=== PATIENT | female | born 1950 | race Caucasian/White ===

== ENCOUNTER → 2019-07-23 12:42 | Outpatient (CLI) | payer MEDICARE, OTHER, SELFPAY ==
--- NOTE | ~2019-07-23 | US_ITS ---
EXAMINATION: US carotid duplex BI DATE: 07/23/2019 13:29 INDICATION: Paresthesias TECHNIQUE: Grayscale, color Doppler, and pulsed Doppler images of the cervical carotid arteries were obtained. The degree of vessel stenosis is placed in one of the following categories: normal, <50%, 5 0-69%, >=70% but less than near-occlusion, near-occlusion, or total occlusion. Note that percent sten osis relative to normal distal artery lumen diameter is indirectly measured from velocity measurement s as described by Meño, et al. Radiology 2003; 229:340-346. Notes: Normal: Peak systolic velocity <125 centimeters/sec and no plaque <50%. Peak systolic velocity <125 ( EDV <40; ICA/CCA PSV ratio <2.0; used these factors only a tandem lesions or low cardiac output or co ntralateral disease) 50-69 %: PSV 125-230 (EDV 40-100; ratio 2-4) >= 70% but less than near occlusion: PSV greater than 230 (EDV > 100; ratio> 4.0) Near Occlusion: PSV that is variable; markedly narrowed lumen Occlusion: Absent flow on color/spectral Doppler and no lumen on travis scale. COMPARISON: None. FINDINGS: RIGHT: The right common carotid artery (CCA) peak systolic velocity (PSV) is 69 cm/s. The right internal car otid artery (ICA) PSV is 86 cm/s. The right ICA end-diastolic velocity (EDV) is 23 cm/s. The right IC A/CCA PSV ratio is 1.2. The external carotid artery (ECA) PSV is 86 cm/s. There is antegrade flow in the right vertebral artery. LEFT: The left CCA PSV is 76 cm/s. The left ICA PSV is 91 cm/s. The left ICA EDV is 20 cm/s. The left ICA/C CA PSV ratio is 1.2. The ECA PSV is 77 cm/s. There is antegrade flow in the left vertebral artery. IMPRESSION: 1. Less than 50% stenosis in the right internal carotid artery by sonographic criteria. 2. Less than 50% stenosis in the left internal carotid artery by sonographic criteria. Reviewed, dictated and finalized at location B. CLERK IMPRESSION: 1. Less than 50% stenosis in the right internal carotid artery by sonographic ramiro castellon. 2. Less than 50% stenosis in the left internal carotid artery by sonographic suhas marie.
== END ==
PROVIDERS: PCP Family Medicine; Visit Provider Family Medicine
DX: I65.23 Occlusion and stenosis of bilateral carotid arteries (principal)
CPT/HCPCS: 93880

== ENCOUNTER 2020-08-06 10:48 | Outpatient (CLI) | payer MEDICARE, SELFPAY ==
--- NOTE | 2020-08-06 11:01 | ECG_ITS ---
Measurements Intervals [place] Rate: 68 P: 72 LA: 195 QRS: 74 QRSD: 100 T: 53 QT: 386 QTc: 411 Interpretive Statements SINUS RHYTHM BORDERLINE ST ABNORMALITY- INFERIOR LEADS BORDERLINE ECG Electronically Signed On 08-06-2020 11:46:02 CATHOLIC PRIEST by Kelvin Haddad D.O.
== END 2020-08-06 10:49 | disposition home or self-care (01) ==
PROVIDERS: PCP Family Medicine; Visit Provider Family Medicine
DX: R55 Syncope and collapse (principal)
CPT/HCPCS: 93005

== ENCOUNTER 2022-07-05 08:11 | Outpatient (CLI) | payer MEDICARE, SELFPAY ==
--- NOTE | ~2022-07-05 | XR_ITS ---
EXAM: XR abdomen obstructive series DATE: 07/05/2022 14:29 HISTORY: K59.09 - Other constipation . COMPARISON: None available. FINDINGS: Clear lung bases. Normal bowel gas pattern. Distended urinary bladder. No organomegaly. No abnormal abdominal calcification. Degenerative change in the lumbar spine and right hip. Partially v isualized, uncomplicated appearing left hip arthroplasty. IMPRESSION: No radiographic evidence of obstruction or ileus. Reviewed, dictated and finalized at location K. Y HAND
[2022-07-05 19:05] LABS: Hematocrit 38.8 % (37.0-47.0); Hemoglobin 12.1 g/dL (12.0-15.0); Mean Corpuscular HGB Conc 31.2 g/dl (32-36); Mean Corpuscular Hemoglobin 30.8 pg (26-34); Mean Corpuscular Volume 98.7 fl (80-100); Mean Platelet Volume 10.5 fl (7.4-10.4); Platelet Count Result 231 k/mm3 (150-375); Red Blood Count 3.93 M/mm3 (4.2-5.4); Red Cell Distribution Width 12.8 % (11.5-14.5); White Blood Count 14.5 K/mm3 (4.5-10.0)
[2022-07-05 20:39] LABS: Add Urine Microscopic? NO; Appearance Urine Clear (Clear); Bilirubin Urine Negative (Negative); Blood Urine Negative (Negative); Color Urine Light Yellow (Yellow); Glucose Urine UA Negative (Negative); Ketones Urine Negative (Negative); Leukocyte Esterase Ur Negative LEU/UL (NEGATIVE); Nitrate Urine Negative (Negative); Protein Urine Negative (Negative); Urobilinogen Urine 0.2 mg/dL (<2.0)
[2022-07-05 20:48] LABS: Vitamin D 25 Hydroxy 34.8 ng/mL
[2022-07-05 21:10] LABS: Alanine Aminotransferase 29 U/L (6-35); Albumin Level 4.5 g/dL (3.5-5.1); Alkaline Phosphatase 99 U/L (38-126); Anion Gap 8 mmol/L (8-16); Aspartate Amino Transferase 44 U/L (14-36); Bilirubin,Total 0.5 mg/dL (0.2-1.3); Blood Urea Nitrogen 23 mg/dL (7-17); Calcium 9.2 mg/dL (8.4-10.2); Carbon Dioxide 29 mmol/L (22-30); Chloride 94 mmol/L (98-107); Cholesterol 225 mg/dL (0-200); Estimated Glomerular Filt Rate 55; Glucose 138 mg/dL (65-110); HDL Direct 49 mg/dL; Sodium 131 mmol/L (137-145); Triglycerides 121 mg/dL (<150)
[2022-07-05 21:11] LABS: Mucus Urine Rare /lpf; RBC Urine 0-2 /hpf (0-2); Squamous Epithelial Cell Urine Occasional /hpf (Few); WBC Urine 0-3 /hpf (0-3)
[2022-07-05 21:18] LABS: LDL Cholesterol Direct 131 mg/dL
[2022-07-05 21:19] LABS: Potassium 4.2 mmol/L (3.4-5.0)
== END 2022-07-05 08:12 | disposition home or self-care (01) ==
PROVIDERS: PCP Family Medicine; Visit Provider Family Medicine
DX: N30.90 Cystitis, unspecified without hematuria (principal); K59.09 Other constipation; N32.81 Overactive bladder; R55 Syncope and collapse; I10 Essential (primary) hypertension; E55.9 Vitamin D deficiency, unspecified
CPT/HCPCS: 36415; 74019; 80053; 80061; 81003; 82306; 84443; 85027; 87086; 87088

== ENCOUNTER 2022-09-05 14:32 | Outpatient (CLI) | payer MEDICARE, SELFPAY ==
[2022-09-05 19:28] LABS: Basophils Absolute Auto 0.1 K/mm3 (0.0-0.1); Basophils Percent Auto 0.9 % (0.2-1.2); Eosinophils Absolute Auto 0.2 K/mm3 (0-0.3); Eosinophils Percent Auto 2.3 % (0-4.4); Hematocrit 41.8 % (37.0-47.0); Hemoglobin 13.3 g/dL (12.0-15.0); Immature Granulocyte Absolute 0.03 K/mm3 (0.00-0.031); Immature Granulocyte Percent A 0.3 % (0-0.5); Lymphocytes Absolute Auto 2.17 K/mm3 (0.9-3.2); Lymphocytes Percent Auto 23.2 % (18.3-44.2); Mean Corpuscular HGB Conc 31.8 g/dl (32-36); Mean Corpuscular Hemoglobin 30.7 pg (26-34); Mean Corpuscular Volume 96.5 fl (80-100); Mean Platelet Volume 10.8 fl (7.4-10.4); Monocytes Absolute Auto 0.7 K/mm3 (0.1-0.6); Monocytes Percent Auto 7.5 % (2.6-8.5); Neutrophils Absolute Auto 6.2 K/mm3 (1.3-6.7); Neutrophils Percent Auto 65.8 % (45.5-73.1); Platelet Count Result 250 k/mm3 (150-375); Red Blood Count 4.33 M/mm3 (4.2-5.4); Red Cell Distribution Width 12.4 % (11.5-14.5); White Blood Count 9.4 K/mm3 (4.5-10.0)
[2022-09-05 19:35] LABS: Alanine Aminotransferase 24 U/L (6-35); Albumin Level 4.5 g/dL (3.5-5.1); Alkaline Phosphatase 151 U/L (38-126); Anion Gap 6 mmol/L (8-16); Aspartate Amino Transferase 33 U/L (14-36); Bilirubin,Total 0.4 mg/dL (0.2-1.3); Blood Urea Nitrogen 25 mg/dL (7-17); Calcium 9.9 mg/dL (8.4-10.2); Carbon Dioxide 32 mmol/L (22-30); Chloride 97 mmol/L (98-107); Estimated Glomerular Filt Rate 49; Glucose 100 mg/dL (65-110); Potassium 4.5 mmol/L (3.4-5.0); Sodium 135 mmol/L (137-145)
[2022-09-05 19:36] LABS: Hemoglobin A1C 5.3 % (<5.7)
[2022-09-05 20:17] LABS: Hepatitis B Surface Antigen Negative (Negative)
[2022-09-05 20:22] LABS: HAV RESULT Negative (Negative); Hepatitis B Core IgM Result Negative (Negative)
[2022-09-05 20:34] LABS: Hepatitis C Virus Antibody Negative (Negative)
== END 2022-09-05 14:33 | disposition home or self-care (01) ==
PROVIDERS: PCP Family Medicine; Visit Provider Family Medicine
DX: D72.829 Elevated white blood cell count, unspecified (principal); R73.09 Other abnormal glucose; R74.01 Elevation of levels of liver transaminase levels; E87.1 Hypo-osmolality and hyponatremia; I10 Essential (primary) hypertension
CPT/HCPCS: 36415; 80053; 80074; 82248; 83036; 85025

== ENCOUNTER 2022-09-19 14:35 | Outpatient (CLI) | payer MEDICARE, SELFPAY ==
--- NOTE | ~2022-09-19 | XR_ITS ---
EXAM: XR hip LT 2V w AP pelvis DATE: 09/19/2022 14:53 HISTORY: Low back pain, radiating into left hip, no injury . COMPARISON: None available. FINDINGS: Normal mineralization. No fracture or dislocation. No lytic or blastic lesion. Degenerativ e lumbar disc disease. Mild narrowing, moderate sclerosis, and mild osteophytosis in the right hip. U ncomplicated appearing left hip arthroplasty. No erosion or periosteal change. Soft tissues within no rmal limits. IMPRESSION: Left hip arthroplasty, no radiographic evidence of hardware-related complication. Reviewed, dictated and finalized at location K.
--- NOTE | ~2022-09-19 | XR_ITS ---
Lumbosacral Spine: AP and lateral views Clinical History: Pain COMPARISON: 03/19/2014 Findings: The normal lordotic curve is maintained. 4 mm anterolisthesis of L4 over L5 present. No acu te fracture seen. The intervertebral disc spaces are preserved. Probable facet joint degenerative rach nges from L3 through S1. The sacroiliac joints are normally outlined. Impression: 4 mm anterolisthesis of L4 over L5. Probable facet joint degenerative change at the lower lumbar spine. Reviewed, dictated and finalized at location M. Impression: 4 mm anterolisthesis of L4 over L5. Probable facet joint degenerative change at the lower lumbar spine.
== END 2022-09-19 14:36 | disposition home or self-care (01) ==
PROVIDERS: PCP Family Medicine; Visit Provider Family Medicine
DX: M25.559 Pain in unspecified hip (principal); M54.50 Low back pain, unspecified; M43.16 Spondylolisthesis, lumbar region; Z96.642 Presence of left artificial hip joint
CPT/HCPCS: 72100; 73502

== ENCOUNTER → 2022-12-06 12:20 | Outpatient (CLI) | payer MEDICARE, SELFPAY ==
--- NOTE | ~2022-12-06 | MM_ITS ---
EXAMINATION: MM screening bebo BI w grace HISTORY: Screening mammogram TECHNIQUE: Craniocaudal and mediolateral oblique 3-D tomosynthesis images were obtained and synthetic 2-D images were generated. CAD analysis was submitted and interpreted. COMPARISON: 12/17/2018, 06/23/2015 bilateral screening mammogram examinations BREAST PARENCHYMAL COMPOSITION: There are scattered areas of fibroglandular density. FINDINGS: There are scattered bilateral 5 mm smaller opacities. Bilateral diagnostic mammography and breast ultrasound examination are recommended. IMPRESSION: 1. Bilateral 5 mm or smaller masses 2. Bilateral diagnostic mammography and breast ultrasound examination are recommended BI-RADS Category 0: Incomplete: Needs additional imaging evaluation. Reviewed, dictated and finalized at location A. IMPRESSION: 1. Bilateral 5 mm or smaller masses 2. Bilateral diagnostic mammography and breast ultrasound examination are recom mended BI-RADS Category 0: Incomplete: Needs additional imaging evaluation.
== END ==
PROVIDERS: PCP Family Medicine; Visit Provider Family Medicine
DX: Z12.31 Encounter for screening mammogram for malignant neoplasm of breast (principal); R92.8 Other abnormal and inconclusive findings on diagnostic imaging of breast
CPT/HCPCS: 77063; 77067

== ENCOUNTER → 2022-12-29 08:43 | Outpatient (CLI) | payer MEDICARE, SELFPAY ==
--- NOTE | ~2022-12-29 | MMUS_ITS ---
EXAMINATION: MM diagnostic bebo BI w grace, US breast BI complete HISTORY: Bilateral 5 mm or smaller mammographic densities on 12/06/2022 screening mammogram TECHNIQUE: Additional 3-D tomosynthesis images of both breasts were performed and synthetic 2-D image s were generated. CAD analysis was submitted and interpreted. High resolution bilateral complete marialu[address] st ultrasound examination including all 4 quadrants and subareolar areas was performed. COMPARISON: 12/06/2022 bilateral screening mammogram FINDINGS: MAMMOGRAPHIC FINDINGS: Occasional small bilateral mammographic nodular densities are noted in including circumscribed 4.7 mm opacity in the right lateral subareolar area, approximately 2.7 x 5 mm circumscribed opacity near th e left inferior subareolar area. No irregular mass or architectural distortion, malignant calcification, skin thickening or retraction is noted. ULTRASOUND: Right breast: Subareolar area: 3 x 5 mm simple cyst 5:00 1 cm from nipple: Parallel circumscribed hypoechoic 3.7 mm lesion without posterior shadowing 5:00 1 cm from nipple: 2.8 mm circumscribed round lesion without internal vascularity or posterior fe atures 9:00 6 cm from nipple: 1.5 x 3 x 4 mm parallel circumscribed hypoechoic lesion 10:00 2 cm from nipple: 2.7 x 5.3 x 3.4 mm circumscribed sonolucency, likely a small cyst Left breast: 1.8 mm subareolar circumscribed sonolucency, probably a small cyst IMPRESSION: 1. Benign findings 2. Routine annual mammographic screening is recommended BI-RADS Category 2: Benign finding(s). Reviewed, dictated and finalized at location A. IMPRESSION: 1. Benign findings 2. Routine annual mammographic screening is recommended BI-RADS Category 2: Benign finding(s).
== END ==
PROVIDERS: PCP Student in an Organized Health Care Education/Training Program; Visit Provider Family Medicine
DX: N60.01 Solitary cyst of right breast (principal); R92.8 Other abnormal and inconclusive findings on diagnostic imaging of breast
CPT/HCPCS: 76641; 77062; 77066; G0279

== ENCOUNTER 2023-01-23 07:30 | Outpatient (CLI) | payer MEDICARE, SELFPAY ==
[2023-01-23 19:50] LABS: Cholesterol 249 mg/dL (0-200); HDL Direct 46 mg/dL; Triglycerides 131 mg/dL (<150)
[2023-01-23 20:01] LABS: LDL Cholesterol Direct 154 mg/dL
== END 2023-01-23 07:31 | disposition home or self-care (01) ==
PROVIDERS: PCP Family Medicine; Visit Provider Internal Medicine Cardiovascular Disease
DX: E78.2 Mixed hyperlipidemia (principal)
CPT/HCPCS: 36415; 80061

== ENCOUNTER 2023-02-18 12:43 | Emergency (ER) | payer MEDICARE, SELFPAY ==
[2023-02-18 12:56] VITALS: BP 153/74; PULSE 74; RESP 16; TEMP 36.3; O2SAT 99
--- NOTE | 2023-02-18 13:11 | ED.GENADULT ---
HPI - General Adult General Chief complaint: Skin/Abscess/Foreign Body Stated complaint: rash Source: patient Mode of arrival: ambulatory Limitations: no limitations History of Present Illness HPI narrative: Patient presents for evaluation of pruritic rash to bilateral upper extremities. 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 She had some itching shortly thereafter but did not have visible lesions. She developed some black dots to her arms. She now reports erythematous vesicles to the bilateral forearms and right upper arm. She indicates that the amount of pruritus is extremely bothersome. She played some cortisone cream yesterday and took a hot bath today and she feels like her symptoms are now worse. No hx of exposure to poison jamison in the past. No difficulty breathing or swallowing. She is not diabetic. Related Data Allergies Allergy/AdvReac Type Severity Reaction Status Date / Time Sulfa (Sulfonamide Allergy Intermediate RASH Verified 01/30/23 13:10 Antibiotics) tetanus and diphtheria Allergy Unknown PP41L [place] Verified 01/30/23 13:10 toxoids Year STEROIDS AdvReac Severe FLUSHED Uncoded 01/30/23 13:10 Review of Systems Review of Systems: CONSTITUTIONAL: Denies fever, chills, or sweats. EYES: Denies visual changes, redness, or discharge. ENT: Denies rhinorrhea, congestion, sore throat, or otalgia. CARDIOVASCULAR: Denies chest pain, palpitations, or edema. RESPIRATORY: Denies cough or dyspnea. GASTROINTESTINAL: Denies abdominal pain, nausea, vomiting, or diarrhea. GENITOURINARY: Denies dysuria or hematuria. SKIN: Reports pruritic rash to BUE MUSCULOSKELETAL: Denies back pain, joint pain, or myalgia. NEUROLOGIC: Denies headache, numbness, dizziness, or weakness. PSYCHIATRIC: Denies anxiety or depression. [facility] Past Medical History Medical History Anxiety Asthma Fibromyalgia Gastroesophageal reflux Hyperlipidemia Hypertension Mammogram normal (~2019) Overactive bladder Stress Vaginal dryness, menopausal Surgical History Surgical History H/O foot surgery History of cataract extraction History of hip replacement, total Family History Family History Mother Bladder cancer Hypertension Mother Hypertension Family history of malignant neoplasm of urinary bladder Grandparent Carcinoma of colon Family history of type 2 diabetes mellitus Father Family history of throat cancer Patient's father is Social History Social History Smoking status: Never smoker Second hand tobacco smoke exposure: No Alcohol intake: never Substance use: never Substance use type: does not use Lack of Transportation: No Lack of Food: Never True Current Housing: I Have Housing Concerned About Future Housing: No Difficulty Paying Gas/Electric Bills: No Difficulty Paying for Meds: No Currently Unemployed: No Education: High School Diploma/GED Difficulty w/ Childcare or Family Care: No Living arrangements: with family Occupation/Education: retired Gender identity (if verbalized by the patient): Female Exam Narrative: GENERAL: Well-appearing, well-nourished, and in no acute distress. HEAD: Normocephalic, atraumatic. EYES: PERRLA and EOMI. ENT: Nares clear, no rhinorrhea or epistaxis. Mucous membranes moist. Oropharynx without tonsillar hypertrophy exudate or other lesions. Bilateral TMs pearly travis nonbulging NECK: Supple. No adenopathy or masses. No carotid bruits or JVD CHEST: Clear to auscultation. No respiratory distress. No wheezes rales or rhonchi HEART: Regular rate and rhythm. No murmur heard. Normal peripheral pulses. ABDOMEN: Soft, nontender, nondistended,
== END 2023-02-18 13:14 | disposition home or self-care (01) ==
PROVIDERS: Emergency Provider Nurse Practitioner; PCP Family Medicine
DX: L23.7 Allergic contact dermatitis due to plants, except food (principal); J45.909 Unspecified asthma, uncomplicated; M79.7 Fibromyalgia; K21.9 Gastro-esophageal reflux disease without esophagitis; E78.5 Hyperlipidemia, unspecified; I10 Essential (primary) hypertension
CPT/HCPCS: 99213; G0463

== ENCOUNTER 2023-03-29 10:39 | Emergency (ER) | payer MEDICARE, SELFPAY ==
[2023-03-29 10:46] VITALS: BP 157/75; PULSE 83; RESP 20; TEMP 36.6; O2SAT 100
--- NOTE | 2023-03-29 11:11 | ED.FEMALEGU ---
HPI - Female Genitourinary General Chief complaint: Urogenital-Female Stated complaint: Urinary Problem Time Seen by Provider: 03/29/23 11:04 Source: patient and RN notes reviewed Mode of arrival: ambulatory Limitations: no limitations History of Present Illness HPI Narrative: 72-year-old female presents with concern for pelvic pain, pressure, urine frequency, urgency, foul-smelling urine. Reports she has had symptoms for about a month. She reports symptoms have gotten worse over the last couple days particularly with the odor. She reports some low back pain, denies nausea or vomiting. Denies fever, chills, sweats. Reports chronic body aches MD elicited complaint: UTI Related Data Home Medications Medication Instructions Recorded Confirmed topiramate 25 mg tablet 25 mg PO DAILY 03/29/23 03/29/23 Allergies Allergy/AdvReac Type Severity Reaction Status Date / Time Sulfa (Sulfonamide Allergy Intermediate RASH Verified 03/29/23 10:54 Antibiotics) tetanus and diphtheria Allergy Unknown PP41L [place] Verified 03/29/23 10:54 toxoids Year Review of Systems Review of Systems: CONSTITUTIONAL: Denies malaise, chills, sweats, or fever. CARDIOVASCULAR: Denies chest pain, palpitations, or edema. RESPIRATORY: Denies cough or dyspnea. GASTROINTESTINAL: Denies abdominal pain, nausea, vomiting, diarrhea GENITOURINARY: Reports dysuria, frequency, urgency, suprapubic pressure. Denies flank pain or hematuria. SKIN: Denies rash or itching. MUSCULOSKELETAL: Reports bilateral low back pain, chronic myalgia. All systems reviewed & are unremarkable except as noted in HPI and below PMFSH Past Medical History Medical History Anxiety Asthma Fibromyalgia Gastroesophageal reflux Hyperlipidemia Hypertension Mammogram normal (~2019) Overactive bladder Stress Vaginal dryness, menopausal Surgical History Surgical History H/O foot surgery History of cataract extraction History of hip replacement, total Family History Family History Mother Bladder cancer Hypertension Mother Hypertension Family history of malignant neoplasm of urinary bladder Grandparent Carcinoma of colon Family history of type 2 diabetes mellitus Father Family history of throat cancer Patient's father is Social History Social History Smoking status: Never smoker Second hand tobacco smoke exposure: No Alcohol intake: never Substance use: never Substance use type: does not use Lack of Transportation: No Lack of Food: Never True Current Housing: I Have Housing Concerned About Future Housing: No Difficulty Paying Gas/Electric Bills: No Difficulty Paying for Meds: No Currently Unemployed: No Education: High School Diploma/GED Difficulty w/ Childcare or Family Care: No Living arrangements: with family Occupation/Education: retired Gender identity (if verbalized by the patient): Female Comments At time of signature, agree with nursing past medical, surgical, social and family history. There is no relevant family history pertinent to the presenting complaint Exam Narrative: GENERAL: Well-appearing, well-nourished, and in no acute distress. HEAD: Normocephalic. EYES: PERRLA, conjunctivae clear. NECK: Supple. No lymphadenopathy CHEST: Clear to auscultation. No respiratory distress. HEART: Regular rate and rhythm. ABDOMEN: Soft, nontender upon palpation, nondistended, normal active bowel sounds, no palpable or pulsatile masses, no guarding. No CVA tenderness SKIN: Warm, dry, no rash. NEURO: Alert and oriented x3. PSYCH: Normal mood and affect Course Course Emergency Course: Patient is aware of diagnosis, understands and agree
== END 2023-03-29 11:15 | disposition home or self-care (01) ==
PROVIDERS: Emergency Provider Nurse Practitioner; PCP Family Medicine
DX: N39.0 Urinary tract infection, site not specified (principal); J45.909 Unspecified asthma, uncomplicated; M79.7 Fibromyalgia; K21.9 Gastro-esophageal reflux disease without esophagitis; E78.5 Hyperlipidemia, unspecified; I10 Essential (primary) hypertension
CPT/HCPCS: 81003; 87086; 99213; G0463

== ENCOUNTER 2023-05-03 07:38 | Outpatient (CLI) | payer MEDICARE, SELFPAY ==
[2023-05-03 18:50] LABS: Hematocrit 44.1 % (37.0-47.0); Hemoglobin 13.5 g/dL (12.0-15.0); Mean Corpuscular HGB Conc 30.6 g/dl (32-36); Mean Corpuscular Hemoglobin 30.5 pg (26-34); Mean Corpuscular Volume 99.8 fl (80-100); Mean Platelet Volume 10.5 fl (7.4-10.4); Platelet Count Result 234 k/mm3 (150-375); Red Blood Count 4.42 M/mm3 (4.2-5.4); Red Cell Distribution Width 14.7 % (11.5-14.5); White Blood Count 7.8 K/mm3 (4.5-10.0)
[2023-05-03 20:34] LABS: Alanine Aminotransferase 31 U/L (6-35); Albumin Level 4.3 g/dL (3.5-5.1); Alkaline Phosphatase 73 U/L (38-126); Anion Gap 6 mmol/L (8-16); Aspartate Amino Transferase 49 U/L (14-36); Bilirubin,Total 0.6 mg/dL (0.2-1.3); Blood Urea Nitrogen 25 mg/dL (7-17); Calcium 9.7 mg/dL (8.4-10.2); Carbon Dioxide 30 mmol/L (22-30); Chloride 96 mmol/L (98-107); Estimated Glomerular Filt Rate 55; Glucose 94 mg/dL (65-110); Potassium 4.9 mmol/L (3.4-5.0); Sodium 132 mmol/L (137-145)
[2023-05-03 20:35] LABS: Vitamin D 25 Hydroxy 43.9 ng/mL
== END 2023-05-03 07:39 | disposition home or self-care (01) ==
PROVIDERS: PCP Family Medicine; Visit Provider Family Medicine
DX: E78.5 Hyperlipidemia, unspecified (principal); E55.9 Vitamin D deficiency, unspecified; I10 Essential (primary) hypertension; J45.909 Unspecified asthma, uncomplicated; K21.9 Gastro-esophageal reflux disease without esophagitis; N32.81 Overactive bladder; R32 Unspecified urinary incontinence
CPT/HCPCS: 36415; 80053; 82306; 85027

== ENCOUNTER 2023-06-07 09:52 | Outpatient (CLI) | payer MEDICARE, SELFPAY ==
--- NOTE | ~2023-06-07 | XR_ITS ---
EXAMINATION: XR chest 2V 06/07/2023 10:00 INDICATION: Dyspnea PROCEDURE: 2 view chest COMPARISON: No prior studies for comparison. FINDINGS: The lungs are clear. The cardiomediastinal silhouette is within normal limits. There are no pleural effusions. There is no pneumothorax suspected. IMPRESSION: 1: NO ACUTE CARDIOPULMONARY DISEASE. Reviewed, dictated and finalized at location B. K PATCHER
== END 2023-06-07 09:53 | disposition home or self-care (01) ==
LOC: ANHBWCIMG 09:53
PROVIDERS: PCP Nurse Practitioner Adult Health; Visit Provider Nurse Practitioner Adult Health
DX: R09.89 Other specified symptoms and signs involving the circulatory and respiratory systems (principal)
CPT/HCPCS: 71046

== ENCOUNTER 2023-06-19 09:06 | Outpatient (CLI) | payer MEDICARE, SELFPAY ==
[2023-06-19 20:13] LABS: Anion Gap 7 mmol/L (8-16); Blood Urea Nitrogen 26 mg/dL (7-17); Calcium 9.8 mg/dL (8.4-10.2); Carbon Dioxide 27 mmol/L (22-30); Chloride 101 mmol/L (98-107); Estimated Glomerular Filt Rate 55; Glucose 93 mg/dL (65-110); Potassium 4.8 mmol/L (3.4-5.0); Sodium 135 mmol/L (137-145)
== END 2023-06-19 09:07 | disposition home or self-care (01) ==
LOC: ANHBWCLAB 09:08
PROVIDERS: PCP Nurse Practitioner Adult Health; Visit Provider Family Medicine
DX: E87.1 Hypo-osmolality and hyponatremia (principal)
CPT/HCPCS: 36415; 80048

== ENCOUNTER 2023-10-12 00:44 | Day surgery (SDC) | payer MEDICARE, SELFPAY ==
[2023-10-11 15:48] VITALS: BMI 30.4
[2023-10-12 09:20] VITALS: BP 175/78; PULSE 70; RESP 15; TEMP 36.8; O2SAT 99; BMI 32.5
--- NOTE | 2023-10-12 09:21 | P.OP_ITS ---
Procedure Note - Detailed Date of Procedure 10/12/23 Pre-op Diagnosis Recurrent unexplained near-syncope and syncope Post-op Diagnosis Same Procedure Performed Loop recorder implantation Surgeon Gómez Kiran MD Anesthesia Local Indications Recurrent unexplained near-syncope and syncope Findings Brief History of Present Illness: Patient is a very pleasant 73-year-old female with a past medical history significant for hypertension, hyperlipidemia recurrent unexplained near- syncope and syncope referred for loop recorder implantation for further evaluation. Description of Procedure After verbal and written informed consent was obtained from the patient risks, benefits, and alternatives explained in detail the patient agreed to proceed with the plan of care as outlined above. Patient was evaluated at bedside in the [facility] procedure room. Patient was placed the appropriate supine position. Left anterior chest wall was prepped and draped in the usual sterile fashion. Operators in appropriate sterile garb. The left 4th intercostal space was identified and marked. Utilizing approximately 36 cc of 1% subcutaneous lidocaine the left anterior chest wall was then locally anesthetized. After local anesthesia was achieved, 2 fingerbreadths left of the sternum at the 4th intercostal space was again identified and a 1 cm incision was made with the included skin punch tool. Following this with the included introducer, a tract was made subcutaneously at a 45 degree angle from the sternum. The introducer was then inverted 180 degrees and with the included plunger the Medtronic REVEAL LINQ I loop recorder was advanced subcutaneously into position easily and without complication. The plunger was then removed followed by the introducer. Manual pressure was held for least 5-10 min with excellent hemostasis. The device was then interrogated and revealed excellent fidelity and measured at 0.20mV. The Medtronic REVEAL LINQ I SN [id number] was implanted without compli cation. The incision was then approximated and closed using Exofin skin adhesive. The incision was then covered with a sterile dressing. Complications: None Estimated Blood Loss 1 Drains No Packing No Pathology None sent Complications No immediate complications Condition Stable Disposition Same day
--- NOTE | 2023-10-12 09:21 | WPDHPUPDATE1 ---
History and Physical Update Update Date/Time: 10/12/23 09:21 History and Physical has been reviewed, including an updated exam of the patient. There are NO changes in the patient's condition. Risks, benefits, and alternatives have been discussed and questions answered. Patient agrees to proceed with procedure.
== END 2023-10-12 10:49 | disposition home or self-care (01) ==
PROVIDERS: PCP Internal Medicine; Visit Provider Internal Medicine Cardiovascular Disease
PROC: (CPT 33285; principal; 2023-10-12 10:00)
DX: R55 Syncope and collapse (principal)
CPT/HCPCS: 33285; C1764

== ENCOUNTER 2023-12-25 09:47 | Outpatient (CLI) | payer MEDICARE, SELFPAY | END 2023-12-25 09:48 | disposition home or self-care (01) | PROVIDERS: PCP Family Medicine; Visit Provider Family Medicine | DX: M79.7 Fibromyalgia (principal); D72.829 Elevated white blood cell count, unspecified; E78.5 Hyperlipidemia, unspecified; F41.9 Anxiety disorder, unspecified; I10 Essential (primary) hypertension; J45.909 Unspecified asthma, uncomplicated; M54.50 Low back pain, unspecified; R55 Syncope and collapse; R74.01 Elevation of levels of liver transaminase levels | CPT/HCPCS: 36415; 84439; 84443 ==

== ENCOUNTER 2024-04-22 09:08 | Outpatient (CLI) | payer MEDICARE, SELFPAY ==
[2024-04-22 19:03] LABS: Alanine Aminotransferase 25 U/L (6-35); Albumin Level 4.5 g/dL (3.5-5.1); Alkaline Phosphatase 86 U/L (38-126); Anion Gap 8 mmol/L (4-12); Aspartate Amino Transferase 46 U/L (14-36); Bilirubin,Total 0.5 mg/dL (0.2-1.3); Blood Urea Nitrogen 22 mg/dL (7-17); Calcium 10.3 mg/dL (8.4-10.2); Carbon Dioxide 31 mmol/L (22-30); Chloride 99 mmol/L (98-107); Cholesterol 208 mg/dL (0-200); Estimated Glomerular Filt Rate > 60; Glucose 108 mg/dL (65-110); HDL Direct 46 mg/dL; Potassium 5.1 mmol/L (3.4-5.0); Sodium 138 mmol/L (137-145); Triglycerides 198 mg/dL (<150)
[2024-04-22 19:14] LABS: Hemoglobin 14.4 g/dL (12.0-15.0); LDL Cholesterol Direct 118 mg/dL; Mean Corpuscular HGB Conc 30.6 g/dl (32-36); Mean Corpuscular Hemoglobin 30.1 pg (26-34); Mean Corpuscular Volume 98.3 fl (80-100); Mean Platelet Volume 10.7 fl (7.4-10.4); Platelet Count Result 259 k/mm3 (150-375); Red Blood Count 4.78 M/mm3 (4.2-5.4); Red Cell Distribution Width 13.3 % (11.5-14.5); White Blood Count 9.2 K/mm3 (4.5-10.0)
[2024-04-22 19:30] LABS: Vitamin D 25 Hydroxy 56.8 ng/mL
== END 2024-04-22 09:09 | disposition home or self-care (01) ==
PROVIDERS: PCP Family Medicine; Visit Provider Family Medicine
DX: M79.7 Fibromyalgia (principal); M54.50 Low back pain, unspecified; D72.829 Elevated white blood cell count, unspecified; R74.01 Elevation of levels of liver transaminase levels; R55 Syncope and collapse; I10 Essential (primary) hypertension; E78.5 Hyperlipidemia, unspecified; F41.9 Anxiety disorder, unspecified; J45.909 Unspecified asthma, uncomplicated; Z79.899 Other long term (current) drug therapy
CPT/HCPCS: 36415; 80053; 80061; 82306; 82607; 84443; 85027

== ENCOUNTER 2024-05-01 07:31 | Outpatient (CLI) | payer MEDICARE, SELFPAY ==
--- NOTE | ~2024-05-01 | US_ITS ---
EXAM: ABDOMEN ULTRASOUND HISTORY: R74.01 - Elevation of levels of liver transaminase levels COMPARISON: None FINDINGS: LIVER: The liver is increased in echogenicity and unremarkable in size measuring 18 cm in longitudina l dimension. GALLBLADDER: No stones within the gallbladder. No gallbladder wall thickening or pericholecystic fluid. BILE DUCTS: Common bile duct measures 3mm. PANCREAS: Limited evaluation of the pancreas secondary to overlying bowel gas RIGHT KIDNEY: 10.6 cm. In length. No hydronephrosis or bulky renal calculi. VASCULATURE : The abdominal aorta is poorly visualized secondary to overlying bowel gas. The IVC is patent. IMPRESSION: Fatty infiltration of a normal sized liver. No additional abnormalities. Reviewed, dictated and finalized at location A.
== END 2024-05-01 07:32 | disposition home or self-care (01) ==
LOC: MICIMG 07:32
PROVIDERS: PCP Family Medicine; Visit Provider Family Medicine
DX: R74.01 Elevation of levels of liver transaminase levels (principal)
CPT/HCPCS: 76705

== ENCOUNTER 2024-05-20 09:03 | Outpatient (CLI) | payer MEDICARE, SELFPAY ==
--- NOTE | ~2024-05-20 | MM_ITS ---
EXAMINATION: MM screening bebo BI w grace HISTORY: Screening mammogram TECHNIQUE: Craniocaudal and mediolateral oblique 3-D tomosynthesis images were obtained and synthetic 2-D images were generated. CAD analysis was submitted and interpreted. COMPARISON: 12/06/2022, 12/17/2018 BREAST PARENCHYMAL COMPOSITION:Not Dense. There are scattered areas of fibroglandular density. FINDINGS: No suspicious mass, calcification, or architectural distortion are identified in either alida ast to suggest malignancy. There has been no suspicious interval change. IMPRESSION: No mammographic evidence of malignancy. Recommend routine screening mammography in one year. BI-RADS Category 1: Negative Reviewed, dictated and finalized at location . ER MACHINE OPERATOR
== END 2024-05-20 09:04 | disposition home or self-care (01) ==
PROVIDERS: PCP Family Medicine; Visit Provider Family Medicine
DX: Z12.31 Encounter for screening mammogram for malignant neoplasm of breast (principal)
CPT/HCPCS: 77063; 77067

== ENCOUNTER 2024-07-25 10:56 | Outpatient (CLI) | payer MEDICARE, SELFPAY ==
--- NOTE | ~2024-07-25 | XR_ITS ---
XR abdomen obstructive series Ordering provider: Theo Li MD History: . R10.2 - Pelvic and perineal pain RT SIDE WORSE . Comparison: None. FINDINGS: BOWEL: Nonobstructive bowel gas pattern. ORGANOMEGALY: None. SIGNIFICANT PATHOLOGIC CALCIFICATIONS: None. OTHER: No free air is seen under the diaphragm. Right hip arthroplasty. Severe right hip osteoarthrit ic changes. IMPRESSION: NO ACUTE ABDOMINAL FINDINGS. Reviewed, dictated and finalized at location A. K PRESS OPERATOR
[2024-07-25 12:18] LABS: Add Urine Microscopic? NO; Appearance Urine Clear (Clear); Bilirubin Urine Negative (Negative); Blood Urine Negative (Negative); Color Urine Yellow (Yellow); Glucose Urine UA Negative (Negative); Ketones Urine Negative (Negative); Leukocyte Esterase Ur Negative LEU/UL (Negative); Nitrate Urine Negative (Negative); Protein Urine Negative (Negative); Specific Grav Ur 1.005 (1.001-1.035); Urobilinogen Urine 0.2 mg/dL (<2.0)
[2024-07-25 13:07] LABS: Alanine Aminotransferase 23 U/L (6-35); Albumin Level 4.5 g/dL (3.5-5.1); Anion Gap 8 mmol/L (4-12); Bilirubin,Total 0.8 mg/dL (0.2-1.3); Blood Urea Nitrogen 23 mg/dL (7-17); Calcium 9.7 mg/dL (8.4-10.2); Carbon Dioxide 29 mmol/L (22-30); Chloride 97 mmol/L (98-107); Estimated Glomerular Filt Rate > 60; Glucose 88 mg/dL (65-110); Sodium 134 mmol/L (137-145)
[2024-07-25 13:16] LABS: Alkaline Phosphatase 103 U/L (38-126); Aspartate Amino Transferase 28 U/L (14-36); Potassium 4.5 mmol/L (3.4-5.0)
[2024-07-25 13:26] LABS: Hepatitis B Surface Antigen Negative (Negative)
[2024-07-25 13:32] LABS: HAV RESULT Negative (Negative); Hepatitis B Core IgM Result Negative (Negative)
[2024-07-25 13:43] LABS: Hepatitis C Virus Antibody Negative (Negative)
[2024-07-27 11:14] LABS: Ionized Calcium 5.2 mg/dL (4.7-5.5)
== END 2024-07-25 10:57 | disposition home or self-care (01) ==
PROVIDERS: PCP Family Medicine; Visit Provider Family Medicine
DX: R74.01 Elevation of levels of liver transaminase levels (principal); E87.5 Hyperkalemia; E83.52 Hypercalcemia; R53.83 Other fatigue; R10.9 Unspecified abdominal pain; R10.2 Pelvic and perineal pain
CPT/HCPCS: 36415; 74019; 80053; 80074; 81003; 82330; 87086

== ENCOUNTER 2024-10-26 12:48 | Emergency (ER) | payer MEDICARE, SELFPAY ==
[2024-10-26] VITALS (9 sets, daily range): BP systolic 163–193; BP diastolic 65–89; PULSE 60–76; RESP 16–18; TEMP 36.4; O2SAT 99–100
--- OUTSIDE RECORDS SUMMARY | 2024-10-26 12:50 | XMS_ITS | Clinical Summary ---
Author Organization [facility] Address [address] [place] [id number] Care Team Providers Care Manager Mac Name Role Phone Ruth Gomez MD Primary Care Provider [phone] Social History Tobacco Use Types Packs/Day Years Used Date Smoking Tobacco: Never Assessed Comments Unknown Sex and Gender Information Value Date Recorded Sex Assigned at Not on file Legal Sex Female 2:05 PM CDT Gender Identity Not on file Sexual Orientation Not on file Plan of Treatment Health Maintenance Due Date Last Done Comments Colorectal Cancer Screening Colonoscopy (10 Years) 1950 Hepatitis C 1969 DTaP, Tdap and Td Vaccines ( 1 - Tdap) 1970 Mammogram Screening 1991 Pneumococcal Vaccine: 50+ Ye ars (1 of 1 - PCV) 2001 Zoster Vaccines (1 of 2) 2001 Annual Medicare Wellness Visit 2016 Dexa Scan (General) 2016 COVID-19 Vaccine ( - 2023-2 5 season) 2024 RSV Immunization or 60+ Years (1 - 1-dose 75+ series) 2026 Meningococcal B Vaccine Aged Out No l onger eligible based on patient's age to complete this topic Meningococcal Vaccine Aged Out No jefe barrie eligible based on patient's age to complete this topic RSV Immunizations Under 20 Months Aged Out No longer eligible based on patient's age to complete this topic Insurance MEDICARE [employer] Care Teams Manager Mac Relationship Specialty Start Date End Date Ruth Gomez MD PCP - General FAMILY PRACTICE 03/17/20
--- OUTSIDE RECORDS SUMMARY | 2024-10-26 12:50 | XMS_ITS | Clinical Summary ---
Author Organization [facility] Address [address] [place] [address] Phone Care Team Providers Care Foundry Finisher Name Role Phone Theo Li MD Primary Care Provider [phone] Allergies Active Allergy Reactions Criticality Noted Date Comments Amoxicillin Itching 02/13/2024 Clavulanic Acid Itching 02/13/2024 Sulfa Antibiotics Rash 02/13/2024 Tetanus-Diphtheria Toxoids Td Unknown 2023 Medications dicyclomine (BENTYL) 10 MG Capsule 11/21/2023 Active losartan (COZAAR) 100 MG Tablet Take 100 mg by mouth daily. 06/20/2023 Active ezetimibe (ZETIA) 10 MG Tablet Take 10 mg by mouth daily. 04/23/2024 Active Linzess 72 MCG Capsule as needed 03/25/2024 Active cyanocobalamin 1000 MCG Tablet Take 1,000 mcg by mouth. Active Social History Tobacco Use Types Packs/Day Years Used Date Smoking Tobacco: Never Smokeless Tobacco: Never Tobacco Cessation:Counseling Given: Not Answered Alcohol Use Standard Drinks/Week Comments Not Currently 0 (1 standard drink = 0.6 oz pur e alcohol) Comments Unknown Sex and Gender Information Value Date Recorded Sex Assigned at Not on file Legal Sex Female 9:38 PM CDT Gender Identity Not on file Sexual Orientation Not on file Last Filed Vital Signs Vital Sign Reading Time Taken Comments Blood Pressure 146/86 06/24/2024 10:04 AM DIELECTRIC PRESS OPERATOR Pulse 71 06/24/2024 10:04 AM DIELECTRIC PRESS OPERATOR Temperature 36.5 C (97.7 F) 06/24/2024 10:04 AM DIELECTRIC PRESS OPERATOR Respiratory Rate 16 06/24/2024 10:04 AM DIELECTRIC PRESS OPERATOR Oxygen Saturation 100% 06/24/2024 10:04 AM DIELECTRIC PRESS OPERATOR Inhaled Oxygen Concentration - - Weight 97 kg (213 lb 12.8 oz) 06/24/2024 10:04 A M DIELECTRIC PRESS OPERATOR Height 177.8 cm (5' 10 ) 06/24/2024 10:04 AM DIELECTRIC PRESS OPERATOR Body Mass Index 30.68 06/24/2024 10:04 AM DIELECTRIC PRESS OPERATOR Plan of Treatment Upcoming Encounters Date Type Department Care Team (Late st Contact Info) Description 12/24/2024 1:00 PM CDT Office Visit [facility] - Neurology [facility] [address] [place] [address] Sacha Sloan MD [address] [place] [address] Health Maintenance Due Date Last Done Comments Hepatitis C Virus (HCV) Screening 1950 Mammogram 1950 TdaP Immunization 1950 Colonoscopy 1996 Colorectal Cancer Screening 1996 Cologuard 2001 Immunochemical Fecal Occult Blood 2001 Pneumococcal Immunization (5 0+ years) (1 of 1 - PCV) 2001 Zoster Immunization (1 of 2) 2001 Influenza Immunization (#1) 2024 SARS-COV-2 Immunization ( - 2023- season) 2024 DEXA Bone Density 03/17/2024 03/17/2022 Respiratory Syncytial Virus (RSV) Immunization (Adult) (1 - 1-dose 75+ series) 2026 Hepatitis B Immunization Aged Out No longer eligible based on patient's age to complete this topic Meningococcal Immunization (ACWY) Aged Out No longer eligible based on patient's age to complete this topic Rotavirus Immunization Aged Out No lo nger eligible based on patient's age to complete this topic Insurance MEDICARE C [facility] Care Teams Foundry Finisher Relationship Specialty Start Date End Date Theo Li MD [address] [place] [id number] PCP - General Family Medicine 02/12/24
--- OUTSIDE RECORDS SUMMARY | 2024-10-26 12:50 | XMS_ITS | CONTINUITY OF CARE DOCUMENT ---
Author Name neris cordon Address Unknown Organization [facility] Address [id number] [place] [address] [address] [place] [address] Phone [phone] Care Team Providers Care Activity Therapy Teacher Name Role Phone neris cordon Unavailable Unavailable
--- OUTSIDE RECORDS SUMMARY | 2024-10-26 12:51 | XMS_ITS | Clinical Summary ---
Author Organization [facility] Address [address] [place] [address] Care Team Providers Care Appliance Tester Name Role Phone Ruth Gomez MD Unavailable [phone] Morales Guerrero MD Unavailable [phone] Theo Li MD Primary Care Provider [phone] Allergies Active Allergy Reactions Criticality Noted Date Comments Conj Estrog-Medroxyprogest Erick Other (See comments) Low 03/23/2015 Mouth sores Diclofenac Swelling Medium 05/17/2022 Pfnfzuz-Rpq-Kpx Reductase Inhibitors Muscle pain Medium 06/21/2023 Sulfa (Sulfonamide Antibiotics) Rash Medium 12/29/2016 Sulfamethoxazole-Trimethopr im Itching Low 03/23/2015 Medications ibuprofen (ADVIL,MOTRIN) 200 mg tab/cap Take by mouth every 6 (six) hours as needed for pain Active vit no.124/iron/foli c ( VITAMIN ORAL) Take by mouth Ac tive acidophilus-pect in, citrus 100 million cell-10 mg capsule Take by mouth Activ e NON FORMULARY, FOR CLINIC ADMINISTERED MEDICATIONS ONLY, (not in database) Apply 1 each to the mouth or throat once Magic Mouthwash 30 mL Nystatin, 30 mL Lidocain 2 % rickey.,40 mL M-DRYL 12.5 mg/5ML, 40. mL GNP Antacid, 0.500 Dexamethasone 4 mg tab Active losartan (COZAAR) 100 mg tabletIndication s:hypertension Take 1 tablet (100 mg total) by mouth daily 90 tablet 1 06/20/20 23 Active triamcinolone (KENALOG) 0.1 % paste 08/24/19 24 Active lysine 500 mg tablet 1 tablet (500 mg total) Active ezetimibe (ZETIA) 10 mg tablet Take 1 tablet (10 mg total) by mouth daily 90 tablet 3 04/23/20 24 025 Active Linzess 72 mcg capsule as needed 03/25/20 24 Active cyanocobalamin (Vitamin B-12) 1,000 mcg tabletIndication s:Prevention of Vitamin B12 Deficiency Take 1 tablet (1,000 mcg total) by mouth daily Active Active Problems Problem Noted Date Diagnosed Date Visit for wound check 10/19/2023 Status post placement of implantable loop record er 10/12/2023 Overview (10/12/2023): Med[employer] [id number]. Dx; Syncope. DOI 10/12/2023-[facility] Slow transit constipation 06/21/2023 Assessment & Plan (06/21/2023 12:14 PM LIBRARY CUSTOMER SERVICE CLERK): Patient reports constipation probiotics help control this best patient did not tolerate Linzess Recurrent UTI (urinary tract infection) 06/21/20 Assessment & Plan (06/21/2023 12:25 PM LIBRARY CUSTOMER SERVICE CLERK): Patient advised me she is had a history recurrent UTI. 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 He is done multiple tests etiology not found. Patient is not symptomatic at this time H/O syncope 04/04/2023 Medication side effects 05/03/2022 Gastroesophageal reflux disease 04/27/2022 Assessment & Plan (06/21/2023 12:04 PM LIBRARY CUSTOMER SERVICE CLERK): Patient advised me on today's date 06/20/2023 that the famotidine effective in controlling her symptoms for GERD. Will continue present therapy Assessment & Plan (04/27/2022 12:24 PM CDT): - chronic, not at goal - she was on Famotidine 10 mg daily - prior to it she was on Omeprazole 20 mg daily - I want her to tried Famotidine 40 mg mighty and if not controlled go to Omeprazole 20 mg BID Encounter for Medicare annual wellness exam 04/09 Overview (04/27/2022): aware of need, she wants to manage other health care needs at this time Assessment & Plan (06/21/2023 12:28 PM LIBRARY CUSTOMER SERVICE CLERK): This is a new patient to me she is multiple health problems. History and physical completed patient's health risk assessment health maintenance reviewed in addressed. Patient is not interested in immunizations a detailed discussion regarding shingles vaccine and strongly encouraged it. Reviewed with her [email or web address] protocol in terms of home testing immediately and contact the office. Patient will not accept/interested in colonoscopy. Medical records stated by her previous primary care physician she had a colonoscopy 10 years ago that showed polyps. At this time will precede with DNA Cologuard test I personally advised patient that has a small chance she will get positive results from the DNA Cologuard than colonoscopy is a strongly suggested under the circumstances. Chronic right shoulder pain 04/27/2022 Assessment & Plan (04/27/2022 1:00 PM CDT): - chronic, worse - has an appointment she made with orthopedic provider in May - occurred after a fall in September 2021 - no imaging in file, offered Xray but wants to defer - see physical exam findings Class 1 obesity due to exces s calories without serious comorbidity with body mass index (BMI) of 31.0 to 31.9 in adult 03/16/2022 Assessment & Plan (03/16/2022 1:19 PM CDT): HPI: Condition is stable goal BMI <30 A&P: Healthy, high-protein, lower carbohydrate, lower fat lifestyle and exercise for 150min/week recommended Recommend tracking everything you put in your mouth on an nivia like OrderAhead Lower carb substitutions: Ald[employer] carries a zero net carb bread If you are looking for whole potatoes, like to use in soup or new potato shape/flavor, radishes are a great replacement If you are looking for mashed potatoes, riced cauliflower in the frozen bag section are a great replacement For pasta, try using zucchini noodles, lay them out on a cookie sheet and pat dry with a tea towel to try to remove as much moisture as possible. Heat your pasta sauce on the stove and put the noodles in for 30-45 seconds. If you leave them in much longer they will become mushy Viola and/or coconut flour instead of regular flour For pizza dough, try fathead pizza dough recipe online. To get a crispy crust, bake on one side for 8-12 min, then flip over and bake on the other side for 8-12 min, then put toppings on and bake until the cheese on top of pizza melts chaffles recipe online For ice cream, try the brand Enlightened To replace coffee creamer and make it low carb, use heavy creamer with sugar free Torani sweetener For chips, try Whisps or pork rinds For yogurt, try Two Good scottish yogurt Use Pinterjoi for recipe ideas. Type in low carb... Hand Measurements: A fist or cupped hand = 1 cup 1 cup = 1 -2 servings of fruit juice 1 oz. of cold cereal 2 oz. of cooked cereal, rice or pasta 8 oz. of milk or yogurt A thumb = 1 oz. of cheese Consuming low-fat cheese helps you meet the required servings from the milk, yogurt and cheese group. 1 oz. of low-fat cheese counts as 8 oz. of milk or yogurt. Handful = 1-2 oz. of snack food Thumb tip = 1 teaspoon Keep high-fat foods, such as peanut butter and mayonnaise, at a minimum. One teaspoon is equal to the end of your thumb, from the knuckle up. Three teaspoons equals 1 tablespoon. Palm = 3 oz. of meat Choose lean poultry, fish, shellfish and beef. One palm size portion equals 3 oz. for an adult and 1 -2 oz. for a child under 5. 1 tennis ball or a fist= 1/2 cup of fruit and vegetables Healthy diets include a variety of colorful fruits and vegetables every day. The secret to serving size is in your hand. Snacking can add up. Remember, 1 handful equals 1 oz. of nuts and small candies. For chips and pretzels, 2 handfuls equals 1 oz. Because hand sizes vary, compare your fist size to an actual measuring cup. Personal history of colonic polyps 01/25/2022 Assessment & Plan (06/21/2023 12:11 PM LIBRARY CUSTOMER SERVICE CLERK): Patient advised colon cancer screening , not interested in colonoscopy at this time she will accept DNA Cologuard testing. Patient's advised small percentage that the DNA Cologuard testing will returned abnormal. Last colonoscopy over 10 years ago self reported. Assessment & Plan (02/22/2022 1:12 PM CDT): - past due for colon cancer screening - reports history of colon polyps - last colonoscopy over 10 years ago, states she was told no need for repeat in future which I disagree - recommend repeat Colonoscopy, referral placed Assessment & Plan (01/25/2022 12:40 PM CDT): - past due for colon cancer screening - reports history of colon polyps - last colonoscopy over 10 years ago, states she was told no need for repeat in future which I disagree - recommend repeat Colonoscopy, referral placed Pneumococcal vaccination declined by patient Cervical spinal stenosis 01/03/2022 Assessment & Plan (01/25/2022 12:42 PM CDT): - chronic, improved control - has been evaluated by surgeons before - CT Cervical spine 09/2021 No acute fracture or traumatic malalignment. Multilevel degenerative disc disease, severe at C5-C6. Additional degenerative changes as above including moderate to severe spinal canal stenosis at C5-C6. - started on Gabapentin on last visit 100 mg TID with good improvement --> increase to 100 mg QID - continue management with changes made above Assessment & Plan (01/03/2022 10:15 AM CDT): - chronic, issue - has been evaluated by surgeons before - CT Cervical spine 09/2021 No acute fracture or traumatic malalignment. Multilevel degenerative disc disease, severe at C5-C6. Additional degenerative changes as above including moderate to severe spinal canal stenosis at C5-C6. Adhesive capsulitis of both shoulders 12/28/2021 Assessment & Plan (01/25/2022 12:42 PM CDT): - chronic, she had been scheduled for left shoulder surgery which she has cancelled - her right shoulder also having similar symptoms - started physical therapy for both shoulders Arthritis of left acromioclavicular joint 2021 Overview (12/28/2021): Added automatically from request for surgery [id number] Impingement syndrome of left shoulder 12/28/2021 Overview (12/28/2021): Added automatically from request for surgery [id number] Biceps tendonitis on left 12/28/2021 Overview (12/28/2021): Added automatically from request for surgery [id number] Mixed hyperlipidemia 12/07/2021 Assessment & Plan (06/21/2023 12:00 PM LIBRARY CUSTOMER SERVICE CLERK): Patient presently on Zetia she has a history of intolerance to statin is noted in patient's inspector firearms notes Dr. Kiran. 04/04/2023. I have no new recommendations patient continues to follow-up Cardiology. Component Latest Ref Rng 01/23/2023 SCRIBED Cholesterol, Total 100 - 199 249 (E) SCRIBED HDL >35 46 (E) SCRIBED LDL <130 154 (E) SCRIBED Triglycerides <150 131 (E) Legend: (E) External lab result PETERSON (dyspnea on exertion) 12/07/2021 Statin myopathy 11/06/2021 Assessment & Plan (11/06/2021 10:08 PM CDT): - chronic, unknown status - reports history of Statin myopathy - she is not on any medications - she has tried several statin medications and even Ezetimibe caused her issues - check lipid panel, order placed Hypertension, essential 10/26/2021 Assessment & Plan (06/21/2023 12:15 PM LIBRARY CUSTOMER SERVICE CLERK): Patient presently on losartan 100 mg daily she is tolerating this. Continue present therapy Assessment & Plan (05/12/2022 2:01 PM CDT): - chronic, not well controlled - reports having low blood pressures and feeling not herself - lightheaded - did not take her amlodipine 5 mg today so BP elevated - currently on Losartan-HCTZ 100-12.5 mg daily and Amlodipine 5 mg daily, --> switched to Amlodipine 2.5 mg from 5 mg - does not measure her BP at home regualarly - follow a low salt diet - monitor electrolytes - to keep home Bp log for next week checking twice daily, to notify me if high or low - continue with current medications with changes above Lab Results Component Value Date POTASSIUM 3.8 10/07/2021 Assessment & Plan (04/27/2022 12:24 PM CDT): - chronic, well controlled - currently on Losartan-HCTZ 100-12.5 mg daily and Amlodipine 5 mg daily, script sent in - does not measure her BP at home - follow a low salt diet - monitor electrolytes - continue with current medications with changes above Lab Results Component Value Date POTASSIUM 3.8 10/07/2021 Assessment & Plan (03/16/2022 1:18 PM CDT): HPI: Condition is stable A&P: Discussed/ordered labs, encouraged healthy, low carbohydrate lifestyle and at least 150min/week of exercise, due to being lightheaded, we will have pt take the losartan/hctz 100/25mg in the am, we will then have pt take the amlodipine 5mg at bedtime. This should help resolve the dizziness. Push Water intake at least 80 ounces a day Assessment & Plan (02/22/2022 12:02 PM CDT): - chronic, not well controlled - currently on Losartan-HCTZ 100-12.5 mg daily - start Amlodipine 5 mg daily, script sent in - does not measure her BP at home - follow a low salt diet - monitor electrolytes - continue with current medications with changes above Lab Results Component Value Date POTASSIUM 3.8 10/07/2021 Assessment & Plan (02/07/2022 1:20 PM CDT): Increase Losartan to 100 mg with her HCTZ 12.5 Home BP log and f/u with PCP in 2 weeks to re-evaluate. Assessment & Plan (01/03/2022 10:06 AM CDT): - chronic, suboptimal - currently on Losartan-HCTZ 50-12.5 mg daily - does not measure her BP at home - follow a low salt diet - monitor electrolytes - continue with current medications Lab Results Component Value Date POTASSIUM 3.8 10/07/2021 Assessment & Plan (10/26/2021 3:03 PM CDT): - chronic, suboptimal - currently on Losartan-HCTZ 50-12.5 mg daily - does not measure her BP at home - follow a low salt diet - monitor electrolytes Lab Results Component Value Date POTASSIUM 3.8 10/07/2021 Abdominal cramps 10/26/2021 Assessment & Plan (10/26/2021 3:06 PM CDT): - chronic, stable - no significant diarrhea, sttruggles with constipation - takes a supplement or milk of magnesia for cosntipation - use Dicyclomine 10 mg QID but mostly uses it once daily as needed - has not used it in few months - has coexisting fibromyalgia, anxiety history - continue with current therapy Anxiety 10/07/2021 Assessment & Plan (02/22/2022 1:14 PM CDT): - chronic, stable - on chele term Lorazepam 1.5mg nightly, once in a while she would take an extra 1/2 tablet - not on other medications for anxiety - no coexisting depression - continue current therapy No results found for: TSH Assessment & Plan (01/25/2022 12:49 PM CDT): - chronic, stable - has been on group home Lorazepam 1.5mg nightly, once in a while she would take an extra 1/2 tablet - not on other medications for anxiety - no coexisting depression - continue current therapy No results found for: TSH Assessment & Plan (10/26/2021 3:12 PM CDT): - chronic, stable - has been on terminal make up operator Lorazepam 1-1.5mg nightly - not on other medications for anxiety - no coexisting depression - may continue current therapy Fibromyalgia 10/07/2021 Assessment & Plan (06/21/2023 12:06 PM LIBRARY CUSTOMER SERVICE CLERK): Patient advised me that gabapentin 300 mg twice a day has helped with her fibromyalgia however this still room for improvement we discussed taking it 3 times a morning afternoon at night. Discussed side effects she is tolerating it she does notice a dry mouth. Assessment & Plan (04/27/2022 12:16 PM CDT): - chronic, improved but not at goal - she already tried Gabapentin, Cymbalta, Lyrica but made her feel unwell. - currently on Gabapentin 100 mg tablet TID with good improvement --> increased to 200 mg TID, new script sent in - currently uses ibuprofen and tylenol as needed as well - continue current therapy with changes made above Assessment & Plan (02/22/2022 12:04 PM CDT): - chronic, improved - she already tried Gabapentin, Cymbalta, Lyrica but made her feel unwell. - currently on Gabapentin 100 mg tablet TID with good improvement --> increased to 100 mg QID but made her too sleepy - currently uses ibuprofen and tylenol as needed as well - continue current therapy Assessment & Plan (01/25/2022 12:41 PM CDT): - chronic, improved - she already tried Gabapentin, Cymbalta, Lyrica but made her feel unwell. - started Gabapentin 100 mg tablet TID on last visit with good improvement --> increase to 100 mg QID - currently uses ibuprofen and tylenol as needed as well - continue current therapy with changes made above Assessment & Plan (01/03/2022 10:03 AM CDT): - chronic, stable - She does not want to take any medication for her Fibromyalgia - she already tried Gabapentin, Cymbalta, Lyrica but made her feel unwell. - she states she only tried Gabapentin again as she only tried it for about 3 days, she does not recall what happened - start Gabapentin 100 mg tablet - 200 mg Nightly and 100 mg mornings - currently uses ibuprofen and tylenol as needed - continue current therapy with changes made above Assessment & Plan (10/26/2021 2:59 PM CDT): - chronic, stable - She does not want to take any medication for her Fibromyalgia - she already tried Gabapentin, Cymbalta, Lyrica but made her feel unwell. - currently uses ibuprofen and tylenol as needed - continue current therapy Syncope and collapse 10/06/2021 Assessment & Plan (06/21/2023 12:03 PM LIBRARY CUSTOMER SERVICE CLERK): Pain records reveal she had a syncopal episode 09/26/2021. Evaluation cardiovascular etiology noted in inspector firearms notes Dr. Kiran April 04, 2023. This is my 1st visit with this patient she does not express any fear concern over having syncopal episodes in the future. Laryngopharyngeal reflux (LPR) 06/07/2021 Assessment & Plan (05/12/2022 1:59 PM CDT): - chronic, not at goal - seen by ENT and diagnosed with it - currently on Pepcid 10 mg daily only, then tried 20 mg BID without success - has used Omeprazole before - which used to work better --> switch back to Omeprazole, new script sent in - continue current therapy Recommend the following changes: - Avoid trigger foods (such as spicy foods, fried foods, onions, peppermints, chocolate, high acid foods and juices, caffeinated beverages, carbonated beverages, and tomato based products). - Avoid alcohol take. - Avoid routine use of NSAIDs. - Avoid lying down for 2-3 hours after eating. - Weight loss encouraged. - Eat smaller meals. - Avoid tobacco use. - Sleep on left side. - may sleep with bed propped. - Avoid wearing tight clothing that puts pressure on the stomach. Assessment & Plan (11/06/2021 10:07 PM CDT): - chronic, stable - seen by ENT and diagnosed with it - currently on Pepcid 10 mg daily only - has used Omeprazole before - stated caused discomfort in her mouth - continue current therapy Recommend the following changes: - Avoid trigger foods (such as spicy foods, fried foods, onions, peppermints, chocolate, high acid foods and juices, caffeinated beverages, carbonated beverages, and tomato based products). - Avoid alcohol take. - Avoid routine use of NSAIDs. - Avoid lying down for 2-3 hours after eating. - Weight loss encouraged. - Eat smaller meals. - Avoid tobacco use. - Sleep on left side. - may sleep with bed propped. - Avoid wearing tight clothing that puts pressure on the stomach. 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 She uses a non formulary prescription recommended by a retired ear nose and throat doctor Dr. Gracia that gives her some relief. Magic mouthwash NON FORMULARY, FOR CLINIC ADMINISTERED MEDICATIONS ONLY, (not in database) Provider, Historical, Dose, Frequency: 1 each, Once Summary: Apply 1 each to the mouth or throat once Magic Mouthwash 30 mL Nystatin, 30 mL Lidocain 2 % rickey.,40 mL M-DRYL 12.5 mg/5ML, 40. mL GNP Antacid, 0.500 Dexamethasone 4 mg tab, Historical Med Assessment & Plan (11/06/2021 10:05 PM CDT): - chronic, stable - currently on multivitamin with folic acid - has seen ENT before - on vitamin B12 supplementation daily as well Assessment & Plan (06/07/2021 1:22 PM LIBRARY CUSTOMER SERVICE CLERK): Start multi-vitamin Folic Acid 800 mg () Pepcid 40 mg at bedtime Finish Magic mouthwash 64 ounces of caffeine free and soda free fluid daily S/P hip replacement, left 02/28/2018 Arthralgia of hip 12/28/2016 Low back pain 12/28/2016 Resolved Problems Problem Noted Date Diagnosed Date Resolved Date Near syncope 05/03/2022 06/21/2023 Other chest pain 12/07/2021 02/22/2022 Dyslipidemia 10/26/2021 12/07/2021 Assessment & Plan (11/06/2021 10:08 PM CDT): - chronic, unknown status - reports history of Statin myopathy - she is not on any medications - she has tried several statin medications and even Ezetimibe caused her issues - check lipid panel, order placed Encounters Date Type Department Care Team Description 09/30/2024 7:15 AM CDT Ancillary Procedure [facility] [address] [place] [phone] Status post placement of implantable loop recorder (Primary Dx); NICM (nonischemic cardiomyopathy) (HCC); NSVT (nonsustained ventricular tachycardia) (HCC); Syncope and collapse 09/30/2024 Orders Only [facility] [address] [place] [phone] Dima Armas MD Status post placement of implantable loop recorder (Primary Dx); H/O syncope 08/19/2024 7:15 AM LIBRARY CUSTOMER SERVICE CLERK Ancillary Procedure [facility] [address] [place] [address] [phone] Status post placement of implantable loop recorder (Primary Dx); NICM (nonischemic cardiomyopathy) (HCC); NSVT (nonsustained ventricular tachycardia) (HCC); Syncope and collapse from Last 3 Months Immunizations Immunization Administration Dates Next Due Influenza, Unspecified 04/27/2022(Deferr ed: Patient Refused),07/09/2021(Deferred: Patient Refused),04/09/2021(Deferred: Patient Refused),04/09/2020(Deferred: Patient Refused) Pneumococcal, Unspecified 04/27/2022(Def erred: Patient Refused),01/25/2022(Deferred: Patient Refused) Surgical History Surgery Date Site/Laterality Comments FL FLUORO GUIDED INJECTION HIP LEFT 12/11/2017 Left URETEROSCOPY 07/10/2011 - 07/09/2012 CATARACT EXTRACTION Bilateral FOOT SURGERY SHOULDER ARTHROSCOPY Left DILATION AND CURETTAGE OF UTERUS at least 5 in perimenopausal ages to r/o malignancy- all benign COLONOSCOPY 07/10/2015 - 07/09/2016 TEAR DUCT SURGERY 07/10/2002 - 07/09/2003 REVISION TOTAL HIP ARTHROPLASTY 07/10/2017 - 07/09/2018 Left FLUORO GUIDED INJECTION HIP RIGHT 09/15/2023 Right Medical History Medical History Date Comments Osteoarthritis HTN (hypertension) GERD (gastroesophageal reflux disease) Anxiety Obesity Febrile seizure (HCC) childhood Hematuria Awareness under anesthesia 2002 repor ts waking up in the middle of her tear duct surgery-unsure if it was general anesthesia or not. PONV (postoperative nausea and vomiting) Motion sickness Fibromyalgia Spinal stenosis Cataracts, bilateral Peripheral neuropathy Feet Mixed hyperlipidemia 12/07/2021 Family History Medical History Relation Name Comments Alcohol abuse Father Family history of alcoholism - (Added by TW Conv) Cancer Father Family history of malignant neoplasm - (Added by TW Conv) Heart failure Maternal Grandmother Arthritis Mother Family history of arthritis - (Added by TW Conv) Heart defect Mother Heart failure Mother Hypertension Mother Family history of hypertension - (Added by TW Conv) Relation Name Status Comments Father Maternal Grandmother Mother Social History Tobacco Use Types Packs/Day Years Used Date Smoking Tobacco: Never Smokeless Tobacco: Never Tobacco Cessation:Counseling Given: Not Answered Alcohol Use Standard Drinks/Week Comments No 0 (1 standard drink = 0.6 oz pur e alcohol) PHQ-2 Answer Date Recorded PHQ-2 Total Score (If total score is 3 or more points, staff should administer the PHQ-9) 0 06/20/2023 Comments No Sex and Gender Information Value Date Recorded Sex Assigned at Not on file Legal Sex Female 12:58 PM LIBRARY CUSTOMER SERVICE CLERK Gender Identity Not on file Sexual Orientation Not on file 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 Job End 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 Not on file Not on f ile Not on file Obstetrics History Para Term AB IAB SAB Ectopic Multiple Livin g Live Births 3 2 2 1 1 2 1 Date Outcome GA Total Labor Labor/2nd/3rd Weight Sex Type Anes PTL Krista A1 A5 Name Clin SAB 975 Term F Vag-S pont N Complications:Pre eclampsia Comments:twighlight 980 Term M Vag-S pont N Living Complications:Pre eclampsia Last Filed Vital Signs Vital Sign Reading Time Taken Comments Blood Pressure 132/74 05/14/2024 12:59 PM LIBRARY CUSTOMER SERVICE CLERK Pulse 72 05/14/2024 12:59 PM LIBRARY CUSTOMER SERVICE CLERK Temperature 36.9 C (98.5 F) 12/21/2023 10:23 AM CDT Respiratory Rate 18 12/21/2023 10:23 AM CDT Oxygen Saturation 97% 05/14/2024 12:59 PM LIBRARY CUSTOMER SERVICE CLERK Inhaled Oxygen Concentration - - Weight 97.5 kg (215 lb) 05/14/2024 12:59 PM LIBRARY CUSTOMER SERVICE CLERK Height 177.8 cm (5' 10 ) 05/14/2024 12:59 PM LIBRARY CUSTOMER SERVICE CLERK Body Mass Index 30.85 05/14/2024 12:59 PM LIBRARY CUSTOMER SERVICE CLERK Plan of Treatment Health Maintenance Due Date Last Done Comments Breast Cancer Screening-Mammogram 1950 Colon Cancer Screening-Colonoscopy 1950 DTaP/Tdap/Td Vaccine (1 - Tdap) 1962 Hepatitis B Screening 1969 Pneumococcal vaccine 65+ (1 of 1 - PCV) 2001 Zoster Vaccine (1 of 2) 2001 Covid-19 Vaccine (4 - 2023-2 5 season) 2024 06/10/2021, 11/10/2020, 10/13/2020 Osteoporosis Screening-Bone Density Scan 03/17/2024 03/17/2022 Depression Screening 06/20/2024 06/20/2023, 04/27/2022, 02/22/2022, Additional history exists Fall Risk Assessment 06/20/2024 06/20/2023, 04/27/2022, 02/22/2022, Additional history exists Well Visit 65+ 06/20/2024 06/20/2023 Influenza Vaccine (Season Ended) 2025 Hepatitis C Screening Completed 12/07/2021 Colon Cancer Screening-DNA Stool Discontinued 07/13/19 24 Colon Cancer Screening-FIT Discontinued 07/13/2023 Medical Devices Implanted Type Area Manager Fitness Device Identifier Shelf Expiration Date Model / Serial / Lot [employer] [id number] Ringloc+ 52mm Limit Hole Fin Hip 24 Shell Acetabular - Sn/A - [id number] Implanted:Qty: 1 on 05/02/2018 by Bert Lira MD at [facility] Left: Hip [employer] [id number] 02/17/2028 [id number] / N/A / [id number] [employer] [id number] Ringloc 36mm High Wall Hip +3mm 23 Liner Acetabular Arcomxl - Sn/A - [id number] Implanted:Qty: 1 on 05/02/2018 by Bert Lira MD at [facility] Left: Hip [employer] [id number] 03/29/2023 [id number] / N/A / [id number] [employer] [id number] Echo Bi-Metric 14mm 150mm Noncollar Reduce Proximal Profile Press - Sn/A - [id number] Implanted:Qty: 1 on 05/02/2018 by Bert Lira MD at [facility] Left: Hip [employer] [id number] 12/12/2027 [id number] / N/A / [id number] [employer] 650-1057 G7 36mm Hip Head Femoral Biolox Delta Option - Sn/A - [id number] Implanted:Qty: 1 on 05/02/2018 by Bert Lira MD at [facility] Left: Hip [employer] [id number] 10/21/2027 650-1057 / N/A / [id number] [employer] 650-1068 G7 Type 1 Hip +6mm Offset Taper Sleeve Centering Titanium Biolox - Sn/A - [id number] Implanted:Qty: 1 on 05/02/2018 by Bert Lira MD at [facility] Left: Hip [employer] [id number] 11/18/2027 650-1068 / N/A / [id number] Procedures Procedure Name Priority Date/Time Associated Diagnosis Comments DEVICE CHECK - REMOTE Routine 09/30/2024 2:15 PM CDT NICM (nonischemic cardiomyopathy) (HCC) NSVT (nonsustained ventricular tachycardia) (HCC) Syncope and collapse DEVICE CHECK - REMOTE Routine 08/19/2024 11:02 AM LIBRARY CUSTOMER SERVICE CLERK NICM (nonischemic cardiomyopathy) (HCC) NSVT (nonsustained ventricular tachycardia) (HCC) Syncope and collapse STOOL DNA COLOGUARD Routine 07/13/2023 9:00 AM LIBRARY CUSTOMER SERVICE CLERK Colon cancer screening DEXA AXIAL SKELETON BONE DENSITY 1 OR MORE SITES Schedule Routine, Read Routine (OP Routine) 03/17/2022 11:33 AM CDT Postmenopausal HEPATITIS C ANTIBODY Routine 12/07/2021 11:27 AM CDT Need for hepatitis C screening test from Last 3 Months or Most Recently Relevant to Health Maintenance Results * DEVICE CHECK - REMOTE (09/30/2024 2:15 PM CDT) Anatomical Region Laterality Modality Other Narrative 10/07/2024 7:35 PM CDT Medtronic [id number]. Dx; Syncope. DOI 10/12/2023-[place]. [facility] remote. Routine ILR remote. Normal device function. Battery function-OK. Presenting rhythm: NSR Medications: Losartan 100 mg Counters since last scheduled transmission on 08/20/24. No auto or patient recorded episodes noted. See scanned report. [facility] remote f/u 11/11/24 sign. Josef Biggs RN us Dima Armas MD [facility] PROCEDURES F inal Result * DEVICE CHECK - REMOTE (08/19/2024 11:02 AM LIBRARY CUSTOMER SERVICE CLERK) Anatomical Region Laterality Modality Other Narrative 08/26/2024 1:56 PM LIBRARY CUSTOMER SERVICE CLERK Medtronic REVEAL LinQ implanted October 12, 2023 for syncope. Patient had a routine [facility] remote transmission of their implantable loop recorder on August 19, 2024. Medications: None Interrogation of the patients device demonstrates that the Linq is functioning appropriately (0) Symptom events Auto Device detected events of, (1) Pause, detected August 09 at 6:19 a.m., shows 4 seconds pause. (0) Bradycardia, (0) Tachy, (0) AT, (0) AF, Presenting Rhythm: Normal sinus rhythm at 75 bpm, artifact present. Battery: OK Plan: 1) Routine Remote with no new events. 2) Continue to monitor remotely. Yoel Hart Device Corporate Communications Associate us Dima Armas MD [facility] PROCEDURES F inal Result * Stool DNA - Cologuard (07/13/2023 9:00 AM LIBRARY CUSTOMER SERVICE CLERK) Stool DNA - Cologuard Negative Negative [facility] (CLIA #:[id number]) Comment: NEGATIVE TEST RESULT. A negative Cologuard result indicates a low likelihood that a colorectal cancer (CRC) or advanced adenoma (adenomatous polyps with more advanced pre-malignant features) is present. The chance that a person with a negative Cologuard test has a colorectal cancer is less than 1 in 1500 (negative predictive value >99.9%) or has an advanced adenoma is less than 5.3% (negative predictive value 94.7%). These data are based on a prospective cross-sectional study of 10,000 individuals at average risk for colorectal cancer who were screened with both Cologuard and colonoscopy. (Daryn Sanford et al, N Engl J Med 2014;370(14):5299-0797) The normal value (reference range) for this assay is negative. COLOGUARD RE-SCREENING RECOMMENDATION: Periodic colorectal cancer screening is an important part of preventive healthcare for asymptomatic individuals at average risk for colorectal cancer. Following a negative Cologuard result, the [place] [employer] Society and U.S. Multi-Society Task Force screening guidelines recommend a Cologuard re-screening interval of 3 years. References: [place] [employer] Guideline for Colorectal Cancer Screening: https://www.cancer.org/cancer/ytbpw-ddgdrl-ahvppn/kdjkcmict-lpkeufnee-vtomtnn/ac s-rec ommendations.html.; Sam DK, Yuniel OTERO, Cl REYSE, Colorectal Cancer Screening: Recommendations for Physicians and Patients from the U.S. Multi-Society Task Force on Colorectal Cancer Screening , Am J Gastroenterology 2017; 112:3739-1138. TEST DESCRIPTION: Composite algorithmic analysis of stool DNA-biomarkers with hemoglobin immunoassay. Quantitative values of individual biomarkers are not reportable and are not associated with individual biomarker result reference ranges. Cologuard is intended for colorectal cancer screening of adults of either sex, 45 years or older, who are at average-risk for colorectal cancer (CRC). Cologuard has been approved for use by the U.S. FDA. The performance of Cologuard was established in a cross sectional study of average-risk adults aged 50-84. Cologuard performance in patients ages 45 to 49 years was estimated by sub-group analysis of near-age groups. Colonoscopies performed for a positive result may find as the most clinically significant lesion: colorectal cancer [4.0%], advanced adenoma (including sessile serrated polyps greater than or equal to 1cm diameter) [20%] or non- advanced adenoma [31%]; or no colorectal neoplasia [45%]. These estimates are derived from a prospective cross-sectional screening study of 10,000 individuals at average risk for colorectal cancer who were screened with both Cologuard and colonoscopy. (Daryn Cooley. et al, N Engl J Med 2014;370(14):2642-3888.) Cologuard may produce a false negative or false positive result (no colorectal cancer or precancerous polyp present at colonoscopy follow up). A negative Cologuard test result does not guarantee the absence of CRC or advanced adenoma (pre-cancer). The current Cologuard screening interval is every 3 years. ([place] [employer] Society and U.S. Multi-Society Task Force). Cologuard performance data in a 10,000 patient pivotal study using colonoscopy as the reference method can be accessed at the following location: www.[employer]/results. Additional description of the Cologuard test process, warnings and precautions can be found at www.[employer].com. Stool 07/13/2023 9:00 AM LIBRARY CUSTOMER SERVICE CLERK 07/14/2023 1:49 PM LIBRARY CUSTOMER SERVICE CLERK us Alexander Pollard MD LAB BODY FLUIDS AND STOOLS ORDERABLES Final Result [email or web address] (CLIA #:[id number]) [place] [address] * Dexa Axial Skeleton Bone Density 1 or 2 Site (03/17/2022 11:33 AM CDT) Anatomical Region Laterality Modality Body N/A Other 03/17/2022 7:59 PM CDT Narrative 03/17/2022 8:05 PM CDT EXAM DESCRIPTION: DEXA AXIAL SKELETON BONE DENSITY 1 OR MORE SITES REASON FOR STUDY: 71 y/o year old F with given history of screening. Postmenopausal Manager Fitness/Model: [employer] SL (S/N [id number]) CLINICAL INFORMATION: Current height: 70 inches Maximum height: 71 inches Weight: 218 pounds Risk factors: Adult fracture, postmenopausal COMPARISON: None available. FINDINGS: AP LUMBAR SPINE L1-L4: Total BMD is 1.070 g/cm2 T-score is 0.2 LEFT HIP: Total BMD is 0.911 g/cm2 T-score is -0.3 Femoral neck BMD is 0.856 g/cm2 T-score is 0.1 FRAX: FRAX not reported due to T-scores of hip, femoral neck and/or spine being at or above -1.0 (Normal). IMPRESSION: Based on the left total hip bone mineral density (T-score -0.3 ) the patient has normal bone mass . REFERENCE: Bone mineral density: Normal (T-score above or = -1.0) Low bone mass (T-score between -1.0 and -2.5) replaces the previously used term osteopenia Osteoporosis (T-score = or below -2.5) Medical evaluation for secondary causes of low bone mineral density may be appropriate. FRAX is a World Health Organization validated fracture risk assessment tool that calculates a person's 10 year probability of a major osteoporosis related fracture and hip fracture. According to the National Osteoporosis Foundation guidelines, postmenopausal women and men age 50 or older with low bone mass and a 10 year probability of a major osteoporosis related fracture = or greater than 20% or a 10 year probability of a hip fracture = or greater than 3% should be considered for treatment. For further information, including treatment recommendations, please refer to the 2013 ISCD Official Positions (http://www.iscd.org) and the NOF's Clinician's Guide to Prevention and Treatment of Osteoporosis (http://www.nof.org/professionals/clinical-guidelines) THIS IS AN ELECTRONICALLY VERIFIED FINAL REPORT 03/17/2022 8:05 PM - Electronically signed by Isaac Hu M.D. MF: [id number] Report ID: [id number] Reading Location: [id number] Procedure Note Isaac Hu MD - 03/17/2022 EXAM DESCRIPTION: DEXA AXIAL SKELETON BONE DENSITY 1 OR MORE SITES REASON FOR STUDY: 71 y/o year old F with given history ofscreening. Postmenopausal Manager Fitness/Model: [employer] SL (S/N [id number]) CLINICAL INFORMATION: Current height: 70 inches Maximum height: 71 inches Weight: 218 pounds Risk factors: Adult fracture, postmenopausal COMPARISON: None available. FINDINGS: AP LUMBAR SPINE L1-L4: Total BMD is 1.070 g/cm2 T-score is 0.2 LEFT HIP: Total BMD is 0.911 g/cm2 T-score is -0.3 Femoral neck BMD is 0.856 g/cm2 T-score is 0.1 FRAX: FRAX not reported due to T-scores of hip, femoral neck and/or spine beingat or above -1.0 (Normal). IMPRESSION: Based on the left total hip bone mineral density (T-score -0.3 ) the patient has normal bone mass . REFERENCE: Bone mineral density: Normal (T-score above or = -1.0) Low bone mass (T-score between -1.0 and -2.5) replaces thepreviously used term osteopenia Osteoporosis (T-score = or below -2.5) Medical evaluation for secondary causes of low bone mineral density may be appropriate. FRAX is a World Health Organization validated fracture risk assessmenttool that calculates a person's 10 year probability of a major osteoporosisrelated fracture and hip fracture. According to the National OsteoporosisFoundation guidelines, postmenopausal women and men age 50 or older with low bonemass and a 10 year probability of a major osteoporosis related fracture = or greater than 20% or a 10 year probability of a hip fracture = or greaterthan 3% should be considered for treatment. For further information, including treatment recommendations, please referto the 2013 ISCD Official Positions (http://www.iscd.org) and the NOF's Clinician's Guide to Prevention and Treatment of Osteoporosis (http://www.nof.org/professionals/clinical-guidelines) THIS IS AN ELECTRONICALLY VERIFIED FINAL REPORT 03/17/2022 8:05 PM - Electronically signed by Isaac Hu M.D. MF: [id number] Report ID: [id number] Reading Location: [place] [id number] Gregory Parks MD IMG DXA PROCEDURES Cristina l Result * Hepatitis C antibody (12/07/2021 11:27 AM CDT) Hep C Ab Nonreactive Nonreactive [facility] Comment: Interpretive Data Nonreactive: Antibodies to HCV not detected. Does NOT exclude the possibility of recent exposure to HCV. Equivocal: Equivocal for HCV antibodies. Supplemental molecular testing will be automatically performed to determine infection status in accordance with current CDC screening recommendations. Reactive: Positive for HCV antibodies. This may represent current or past HCV infection. Supplemental molecular testing will be automatically performed to determine current infection status in accordance with current CDC screening recommendations. Interpretive data was last revised on 2019. Blood 12/07/2021 11:2 7 AM CDT 12/07/2021 8:29 PM CDT Gregory Parks MD LAB MICROBIOLOGY - GENE RAL ORDERABLES Edited Result - Final [facility]Y [id number] Department [place] [address] from Last 3 Months or Most Recently Relevant to Health Maintenance Insurance [facility] Address: [address] [address] [place] [address] [employer] MEDICARE [employer]VANT[employer] [facility] Address: [address] [address] [place] [id number] [employer] [facility] [facility] Address: [address] [address] [place] [address] Advance Directives For more information, please contact: [phone] * Full Code (Latest Code Status on File) Date Activated Date Inactivated Comments 10/06/2021 12:51 PM 10/07/2021 6:51 PM * Full Code Date Activated Date Inactivated Comments 05/02/2018 11:21 AM 05/03/2018 3:58 PM Care Teams Appliance Tester Relationship Specialty Start Date End Date Theo Li MD PCP - General Family Practice 12/06/23 Ruth Gomez MD 12/06/17 Morales Guerrero MD Consulting Physician Cardiovascular Disease 10/07/21
--- OUTSIDE RECORDS SUMMARY | 2024-10-26 12:51 | XMS_ITS | Clinical Summary ---
Author Organization [facility] Address [address] [place] [address] Phone Care Team Providers Care Laser Printing Operator Name Role Phone Unavailable Primary Care Provider Unavailabl e Allergies Active Allergy Reactions Criticality Noted Date Comments Conj Estrog-Medroxyprogest Erick Other (See Comments) 03/23/2015 Mouth sores Sulfamethoxazole-Trimethopr im Itching Low 03/23/2015 Family History Medical History Relation Name Comments Cancer Father throat Cancer Mother bladder Diabetes Other grandmother Relation Name Status Comments Father Mother Other Social History Tobacco Use Types Packs/Day Years Used Date Smoking Tobacco: Never Assessed Comments No Sex and Gender Information Value Date Recorded Sex Assigned at Not on file Legal Sex Female 1:26 PM CDT Gender Identity Not on file Sexual Orientation Not on file Last Filed Vital Signs Vital Sign Reading Time Taken Comments Blood Pressure 160/80 02/02/2010 10:30 AM CDT Pulse - - Temperature - - Respiratory Rate - - Oxygen Saturation - - Inhaled Oxygen Concentration - - Weight 85.3 kg (188 lb) 02/02/2010 10:30 AM CDT Height 174 cm (5' 8.5 ) 02/02/2010 10:30 AM CDT Body Mass Index 28.17 02/02/2010 10:30 AM CDT Plan of Treatment Health Maintenance Due Date Last Done Comments DTAP/TDAP/TD VACCINES (1 - Tdap) 1970 COLORECTAL SCREENING 1996 Colorectal Cancer Screening 1996 FIT-DNA Q 3 years 1996 FIT/FOBT Q 1 year 1996 Flex Sig/CT Colonography Q 5 years 1996 PNEUMOCOCCAL VACCINE 50+ YEA RS (1 of 1 - PCV) 2001 ZOSTER VACCINE (1 of 2) 2001 BREAST CANCER SCREENING 09/15/2007 09/15/19 07 (Previously completed) OSTEOPOROSIS SCREENING 2016 INFLUENZA VACCINE (#1) 2024 RSV VACCINE (60+ or ) (1 - 1-dose 75+ series) 2026 Insurance [facility]
--- OUTSIDE RECORDS SUMMARY | 2024-10-26 12:51 | XMS_ITS | Referral Summary ---
Author Organization [facility] Address [address] [place] [address] Care Team Providers Care Gutter Mouth Cutter Name Role Phone Ruth Gomez MD Unavailable [phone] Morales Guerrero MD Unavailable [phone] Theo Li MD Primary Care Provider [phone] Encounters Date Type Department Care Team Description 09/30/2024 Orders Only [facility] [address] [place] [phone] Dima Armas MD Status post placement of implantable loop recorder (Primary Dx); H/O syncope 09/30/2024 7:15 AM CDT Ancillary Procedure [facility] [address] [place] [phone] Status post placement of implantable loop recorder (Primary Dx); NICM (nonischemic cardiomyopathy) (HCC); NSVT (nonsustained ventricular tachycardia) (HCC); Syncope and collapse 08/19/2024 7:15 AM OIL WELL DIRECTIONAL SURVEYOR Ancillary Procedure [facility] [address] [place] [phone] Status post placement of implantable loop recorder (Primary Dx); NICM (nonischemic cardiomyopathy) (HCC); NSVT (nonsustained ventricular tachycardia) (HCC); Syncope and collapse from Last 3 Months Allergies Active Allergy Reactions Criticality Noted Date Comments Conj Estrog-Medroxyprogest Erick Other (See comments) Low 03/23/2015 Mouth sores Diclofenac Swelling Medium 05/17/2022 Swceikc-Rij-Mlr Reductase Inhibitors Muscle pain Medium 06/21/2023 Sulfa [...] (10/12/2023): Medtronic LNQ11. Dx; Syncope. DOI 10/12/2023-Magno. Talya remote. Slow transit constipation 06/21/2023 Assessment & Plan (06/21/2023 12:14 PM OIL WELL DIRECTIONAL SURVEYOR): Patient reports constipation probiotics help control this best patient did not tolerate Linzess Recurrent UTI (urinary tract infection) 06/21/20 Assessment & Plan (06/21/2023 12:25 PM OIL WELL DIRECTIONAL SURVEYOR): Patient advised me she is had a history recurrent UTI. He is seeing Dr. Jero Garland uro new order clerk in the past. He is done multiple tests etiology not found. Patient is not symptomatic at this time H/O syncope 04/04/2023 Medication side effects 05/03/2022 Gastroesophageal reflux disease 04/27/2022 Assessment & Plan (06/21/2023 12:04 PM OIL WELL DIRECTIONAL SURVEYOR): Patient advised me on today's date 06/20/2023 [...] time Assessment & Plan (06/21/2023 12:28 PM OIL WELL DIRECTIONAL SURVEYOR): This is a new patient to me she is multiple health problems. History and physical completed patient's health risk assessment health maintenance reviewed in addressed. Patient is not interested in immunizations a detailed discussion regarding shingles vaccine and strongly encouraged it. Reviewed with her COVID protocol in terms of home testing immediately [...] in your mouth on an nivia like Zimbra Lower carb substitutions: Aldi carries a zero [...] in much longer they will become mushy [place] and/or coconut flour instead of regular flour [...] pork rinds For yogurt, try Two Good vietnamese yogurt Use Danielle for recipe ideas. Type in low carb... [...] 01/25/2022 Assessment & Plan (06/21/2023 12:11 PM OIL WELL DIRECTIONAL SURVEYOR): Patient advised colon cancer screening , not [...] (12/28/2021): Added automatically from request for surgery [id number] Impingement syndrome of left shoulder 12/28/2021 Overview (12/28/2021): Added automatically from request for surgery [id number] Biceps tendonitis on left 12/28/2021 Overview (12/28/2021): Added automatically from request for surgery [id number] Mixed hyperlipidemia 12/07/2021 Assessment & Plan (06/21/2023 12:00 PM OIL WELL DIRECTIONAL SURVEYOR): Patient presently on Zetia she has a history of intolerance to statin is noted in patient's banquet cook notes Dr. Kiran. 04/04/2023. I have no [...] 10/26/2021 Assessment & Plan (06/21/2023 12:15 PM OIL WELL DIRECTIONAL SURVEYOR): Patient presently on losartan 100 mg daily [...] - chronic, stable - has been on superintendent terminal Lorazepam 1.5mg nightly, once in a while she would take an extra 1/2 tablet - not on other medications for anxiety - no coexisting depression - continue current therapy No results found for: TSH Assessment & Plan (10/26/2021 3:12 PM CDT): - chronic, stable - has been on superintendent terminal Lorazepam 1-1.5mg nightly - not on other medications for anxiety - no coexisting depression - may continue current therapy Fibromyalgia 10/07/2021 Assessment & Plan (06/21/2023 12:06 PM OIL WELL DIRECTIONAL SURVEYOR): Patient advised me that gabapentin 300 mg [...] 10/06/2021 Assessment & Plan (06/21/2023 12:03 PM OIL WELL DIRECTIONAL SURVEYOR): Pain records reveal she had a syncopal episode 09/26/2021. Evaluation cardiovascular etiology noted in banquet cook notes Dr. Kiran April 04, 2023. This [...] stomach. 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 Overview (12/08/2021): 11/28 - Vitamin 12 was high so recommending cutting intake by half Assessment & Plan (06/21/2023 12:09 PM OIL WELL DIRECTIONAL SURVEYOR): Patient's has had this problem 20+ years [...] well Assessment & Plan (06/07/2021 1:22 PM OIL WELL DIRECTIONAL SURVEYOR): Start multi-vitamin Folic Acid 800 mg () [...] issues - check lipid panel, order placed Immunizations Immunization Administration Dates Next Due Influenza, Unspecified 04/27/2022(Deferr ed: Patient Refused),07/09/2021(Deferred: Patient Refused),04/09/2021(Deferred: Patient Refused),04/09/2020(Deferred: Patient Refused) Pneumococcal, Unspecified 04/27/2022(Def erred: Patient Refused),01/25/2022(Deferred: Patient Refused) Social History Tobacco Use Types Packs/Day Years [...] on file Legal Sex Female 12:58 PM OIL WELL DIRECTIONAL SURVEYOR Gender Identity Not on file Sexual Orientation Not on file 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 Job End Date 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85 05/14/2024 12:59 PM OIL WELL DIRECTIONAL SURVEYOR Plan of Treatment Not on file Medical Devices Implanted Type Area Repair Manager Device Identifier Shelf Expiration Date Model / Serial / Lot [employer] [id number] Ringloc+ 52mm Limit Hole Fin Hip 24 Shell Acetabular - Sn/A - [id number] Implanted:Qty: 1 on 05/02/2018 by Bert Lira MD at [facility] Left: Hip [employer] [id number] 02/17/2028 [id number] / N/A / [id number] [employer] [id number] Ringloc 36mm High Wall Hip +3mm 23 Liner Acetabular Arcomxl - Sn/A - [id number] Implanted:Qty: 1 on 05/02/2018 by Bert Lira MD at [facility] Left: Hip [employer] [id number] 03/29/2023 [id number] / N/A / [id number] [employer] [id number] Echo Bi-Metric 14mm 150mm Noncollar Reduce Proximal Profile Press - Sn/A - [id number] Implanted:Qty: 1 on 05/02/2018 by Bert Lira MD at [facility] Left: Hip [employer] [id number] 12/12/2027 [id number] / N/A / [id number] [employer] 650-1057 G7 36mm Hip Head Femoral Biolox Delta Option - Sn/A - [id number] Implanted:Qty: 1 on 05/02/2018 by Bert Lira MD at [facility] Left: Hip [employer] [id number] 10/21/2027 650-1057 / N/A / [id number] [employer] 650-1068 G7 Type 1 Hip +6mm Offset Taper Sleeve Centering Titanium Biolox - Sn/A - [id number] Implanted:Qty: 1 on 05/02/2018 by Bert Lira MD at [facility] Left: Hip [employer] [id number] 11/18/2027 650-1068 / N/A / [id number] Procedures Procedure Name Priority Date/Time Associated Diagnosis Comments DEVICE CHECK - REMOTE Routine 09/30/2024 2:15 PM CDT NICM (nonischemic cardiomyopathy) (HCC) NSVT (nonsustained ventricular tachycardia) (HCC) Syncope and collapse DEVICE CHECK - REMOTE Routine 08/19/2024 11:02 AM OIL WELL DIRECTIONAL SURVEYOR NICM (nonischemic cardiomyopathy) (HCC) NSVT (nonsustained ventricular tachycardia) (HCC) Syncope and collapse STOOL DNA COLOGUARD Routine 07/13/2023 9:00 AM OIL WELL DIRECTIONAL SURVEYOR Colon cancer screening DEXA AXIAL SKELETON BONE [...] PM CDT Medtronic LNQ11. Dx; Syncope. DOI 10/12/2023-Magno. Carelink remote. Routine ILR remote. Normal device function. Battery function-OK. Presenting rhythm: NSR Medications: Losartan 100 mg Counters since last scheduled transmission on 08/20/24. No auto or patient recorded episodes noted. See scanned report. CareLink remote f/u 11/11/24 sign. Josef Biggs RN Dima Armas MD [facility] PROCEDURES F inal Result * DEVICE CHECK - REMOTE (08/19/2024 11:02 AM OIL WELL DIRECTIONAL SURVEYOR) Anatomical Region Laterality Modality Other Narrative 08/26/2024 1:56 PM OIL WELL DIRECTIONAL SURVEYOR Medtronic REVEAL LinQ implanted October 12, 2023 [...] Continue to monitor remotely. Yoel Hart Device Oyster Sorter Dima Armas MD [facility] PROCEDURES F inal Result * Stool DNA - Cologuard (07/13/2023 9:00 AM OIL WELL DIRECTIONAL SURVEYOR) Stool DNA - Cologuard Negative Negative [employer] (CLIA #:[id number]) Comment: NEGATIVE TEST RESULT. A negative Cologuard [...] screened with both Cologuard and colonoscopy. (Daryn Leahy al, N Engl J Med 2014;370(14):0468-7003) The normal value (reference range) for this assay is negative. COLOGUARD RE-SCREENING RECOMMENDATION: Periodic colorectal cancer screening is an important part of preventive healthcare for asymptomatic individuals at average risk for colorectal cancer. Following a negative Cologuard result, the [place] Cancer Society and U.S. Multi-Society Task Force screening guidelines recommend a Cologuard re-screening interval of 3 years. References: [place] [employer] Guideline for Colorectal Cancer Screening: https://www.cancer.org/cancer/oazcq-nwbnpa-pvhsgu/oxsrmklro-vifrngevl-owioyor/ac s-rec ommendations.html.; Sam DK, Yuniel CR, Cl PenaK, Colorectal Cancer Screening: Recommendations for Physicians and Patients from the U.S. Multi-Society Task Force on Colorectal Cancer Screening , Am J Gastroenterology 2017; 112:5410-6870. TEST DESCRIPTION: Composite algorithmic analysis of stool [...] screened with both Cologuard and colonoscopy. (Daryn Leahy al, N Engl J Med 2014;370(14):6993-9369.) Cologuard may produce a false negative or false positive result (no colorectal cancer or precancerous polyp present at colonoscopy follow up). A negative Cologuard test result does not guarantee the absence of CRC or advanced adenoma (pre-cancer). The current Cologuard screening interval is every 3 years. ([place] Cancer Society and U.S. Multi-Society Task Force). Cologuard performance data in a 10,000 patient pivotal study using colonoscopy as the reference method can be accessed at the following location: www.Eyeonix.Condomani/results. Additional description of the Cologuard test process, warnings and precautions can be found at www.cologuard.com. Stool 07/13/2023 9:00 AM OIL WELL DIRECTIONAL SURVEYOR 07/14/2023 1:49 PM OIL WELL DIRECTIONAL SURVEYOR Alexander Pollard MD LAB BODY FLUIDS AND STOOLS ORDERABLES Final Result [facility] (CLIA #:[id number]) [place] [address] [place] [address] * Dexa Axial Skeleton Bone Density 1 or 2 Site (03/17/2022 11:33 AM CDT) Anatomical Region Laterality Modality Body N/A Other 03/17/2022 7:59 PM CDT Narrative 03/17/2022 8:05 PM CDT EXAM DESCRIPTION: DEXA AXIAL SKELETON BONE DENSITY 1 OR MORE SITES REASON FOR STUDY: 71 y/o year old F with given history of screening. Postmenopausal Repair Manager/Model: Dimeres Discovery SL (S/N [id number]) CLINICAL INFORMATION: Current height: 70 inches Maximum [...] Isaac Hu M.D. MF: ALAYNA Report ID: [id number] Reading Location: [place] [address] Procedure Note Isaac Hu MD - 03/17/2022 EXAM DESCRIPTION: DEXA AXIAL SKELETON BONE DENSITY 1 OR MORE SITES REASON FOR STUDY: 71 y/o year old F with given history ofscreening. Postmenopausal Repair Manager/Model: Dimeres Discovery SL (S/N [id number]) CLINICAL INFORMATION: Current height: 70 inches Maximum [...] Isaac Hu M.D. MF: ALAYNA Report ID: [id number] Reading Location: [id number] Gregory Parks MD IMG DXA PROCEDURES Cristina [...] ORDERABLES Edited Result - Final [facility] [id number] Department [place] [address] from Last 3 Months or Most Recently Relevant to Health Maintenance Insurance [facility] MEDICARE ADVANTAGE [facility] MEDIC[facility] ADVANTAGE [place] [id number] [facility] MEDIC[employer] ADVANTAGE [place] [id number] Advance Directives For more information, please contact: [phone] * Full Code (Latest Code Status on File) Date Activated Date Inactivated Comments 10/06/2021 12:51 PM 10/07/2021 6:51 PM * Full Code Date Activated Date Inactivated Comments 05/02/2018 11:21 AM 05/03/2018 3:58 PM Care Teams Gutter Mouth Cutter Relationship Specialty Start Date End Date Theo Li MD PCP - General Family Practice 12/06/23 Ruth Gomez MD 12/06/17 Morales Guerrero MD Consulting Physician Cardiovascular Disease 10/07/21
--- OUTSIDE RECORDS SUMMARY | 2024-10-26 12:51 | XMS_ITS | Continuity of Care Document ---
Author Organization Located within [facility] Address [address] [place] [address] [place] [address] Phone Care Team Providers Care Plating Inspector Name Role Phone Bull Corrigan Unavailable Unavailable Procedures Procedure Date Office Consultation Advance Directives Directive Yes / No Effective Date File Name No Information Encounters Encounter Description Practice Location Reason(s) For Visit Diagnoses Date Provider Providers Copied on Encounter Office Consultation [facility], [address] [place] [address] [address], [place], [place], [id number], [place] tel:[phone] [facility] No Information 0 Shekhar Gottlieb. [address] [place], [place], [facility], . tel:[phone] Referring Provider: Miguel Cottrell [place], [place], [facility]. tel:[phone] Family History Family Member Type Diagnosis Age At Onset No Information Payers Payer name Insurance type Covered green party ID Authoriza tion(s) No Information Social History Type Description Quantity Date Captured Comments Sex Female Smoking Status No Information Chief Complaint And Reason For Visit No Information Reason For Referral Reason For Referral No Information History Of Present Illness Encounter Date Complaint History Of Prese nt Illness No Information Functional Status Date Functional Assessmen t No Information Instructions Date Instruction Additional Infor mation No Information Assessments Type Assessment Date No Information Patient Care Teams Name Effective Dates (start - stop) Status Members No Information
--- NOTE | 2024-10-26 13:04 | ED.GENADULT ---
HPI - General Adult General Chief complaint: Unspecified Stated complaint: blood pressure check Time Seen by Provider: 10/26/24 12:55 Source: patient and family Mode of arrival: ambulatory Limitations: no limitations History of Present Illness HPI narrative: This is a 74-year-old female with a history of hypertension presents today with elevated blood pressure and some edema in bilateral lower extremities nonpitting with no chest pain no shortness of breath no fever chills no nausea vomiting no headache or blurry vision. Onset (ago): day(s) Related Data Home Medications ?Medication ?Instructions ?Recorded ?Confirmed ?Last Taken ?Type B complex 11-folic acid 1 mg-C 100 1 tablet PO DAILY 10/11/23 10/11/23 10/11/23 History mg-biotin 300 mcg-zinc 50 mg tablet ezetimibe 10 mg tablet 10 mg PO DAILY 10/11/23 10/11/23 10/11/23 History lysine 500 mg tablet (L-Lysine) 500 mg PO DAILY 10/11/23 10/11/23 10/11/23 History vits 75-iron 28 mg-folic 1 pkg PO DAILY 10/11/23 10/11/23 10/11/23 History acid 800 mcg-omega3 440 mg oral pack triamcinolone acetonide 0.1 % 1 ea mucous membrane PRN PRN Mouth 10/11/23 10/11/23 Unknown History dental paste Irritation Allergies Allergy/AdvReac Type Severity Reaction Status Date / Time Sulfa (Sulfonamide Allergy Intermediate RASH Verified 10/26/24 12:53 Antibiotics) amoxicillin (From Augmentin) Allergy Mild Itching Verified 10/26/24 12:53 clavulanic acid (From Allergy Mild Itching Verified 10/26/24 12:53 Augmentin) tetanus and diphtheria Allergy Unknown PP41L [place] Verified 10/26/24 12:53 toxoids Year Review of Systems Review of Systems: All systems reviewed & are unremarkable except as noted in HPI and below PMFSH Past Medical History Medical History Vaginal dryness, menopausal Stress Overactive bladder Gastroesophageal reflux Mammogram normal (~2019) Asthma Anxiety Hypertension Hyperlipidemia Fibromyalgia Surgical History Surgical History H/O foot surgery History of hip replacement, total History of cataract extraction Family History Family History Mother Bladder cancer Hypertension Mother Hypertension Family history of malignant neoplasm of urinary bladder Grandparent Carcinoma of colon Family history of type 2 diabetes mellitus Father Family history of throat cancer Patient's father is Social History Social History Smoking status: Never smoker Second hand tobacco smoke exposure: No Alcohol intake: never Substance use: never Substance use type: does not use Lack of Transportation: No Lack of Food: Never True Current Housing: I Have Housing Concerned About Future Housing: No Difficulty Paying Gas/Electric Bills: No Difficulty Paying for Meds: No Currently Unemployed: No Education: High School Diploma/GED Difficulty w/ Childcare or Family Care: No Living arrangements: with family Occupation/Education: retired Gender identity (if verbalized by the patient): Female Spiritual care concerns: No Exam Const: General: cooperative and healthy appearing HENMT: Head: normal to inspection Eyes: General: appearance normal, both eyes and all related structures Visual Castellano: normal visual castellano by confrontation Neck: Neck: normal visual inspection, full ROM, no lymphadenopathy and no meningeal signs Chest: Chest palpation & inspection: normal inspection of the chest and normal palpation of entire chest wall Cardio: Jugular venous distension: no JVD Palpation: normal PMI Rate: regular rate GI: Inspection: normal to inspection Skin: General skin exam: normal color and no rashes or lesions noted Neuro: General: oriented to person, oriented to place, oriented to time and patient oriented x3 Extrem: General: normal to inspection and full ROM Course Course Emergency Course: Patient with nonpitting lower extremity edema bilaterally and elevated blood pressure at 193/77 a dose of 0.1mg clonidine administered. Vital Signs Vital signs: Vital Signs Temperature 36.4 C 10/26/24 12:51 Pulse Rate 76 10/26/24 12:51 Respiratory Rate 18 10/26/24 12:51 Blood Pressure 192/87 H 10/26/24 12:51 Pulse Oximetry 100 10/26/24 12:51 Oxygen Delivery Room Air 10/26/24 12:51 Temperature 36.4 C 10/26/24 12:51 Pulse Rate 62 10/26/24 13:03 Respiratory Rate 18 10/26/24 13:03 Blood Pressure 193/77 H 04/19/25 13:03 Pulse Oximetry 100 10/26/24 13:03 Oxygen Delivery Room Air 10/26/24 12:51 Medical Decision Making Vital Signs Vital Signs: Vital Signs Temperature 36.4 C 10/26/24 12:51 Pulse Rate 76 10/26/24 12:51 Respiratory Rate 18 10/26/24 12:51 Blood Pressure 192/87 H 10/26/24 12:51 Pulse Oximetry 100 10/26/24 12:51 Oxygen Delivery Room Air 10/26/24 12:51 Temperature 36.4 C 10/26/24 12:51 Pulse Rate 62 10/26/24 13:03 Respiratory Rate 18 10/26/24 13:03 Blood Pressure 193/77 H 10/26/24 13:03 Pulse Oximetry 100 10/26/24 13:03 Oxygen Delivery Room Air 10/26/24 12:51 Critical Care Time Critical Care Time Critical Care Time: No Discharge Plan Discharge Clinical Impression: Hypertension Qualifiers: Hypertension type: unspecified Qualified Code(s): I10 - Essential (primary) hypertension Edema Qualifiers: Edema type: localized Qualified Code(s): R60.0 - Localized edema Patient Disposition: Home Condition: Stable Instructions: Antibiotic Form, Hypertension (ED), Edema (ED) Additional Instructions: advised patient to take medication as prescribed and to follow with primary care physician within 1 week for further evaluation and treatment. Patient Language: Polish Prescriptions: New furosemide [Lasix] 20 mg tablet 20 mg PO DAILY Qty: 10 0RF No Action Linzess 72 mcg capsule 72 mcg PO DAILY Qty: 90 0RF ropinirole 0.5 mg tablet 0.5 mg PO BID Qty: 30 0RF rizatriptan [Maxalt] 10 mg tablet See Rx Instructions PO .COMPLEX Qty: 30 1RF Rx Instructions: take 1 tab at onset of headache; if no relief may repeat 1 tab after at least 2 hrs; max = 3 tabs/24 hr PO Wegovy 0.25 mg/0.5 mL pen injector 0.25 mg subcut WEEKLY Qty: 2 0RF Rx Instructions: administer weeks 1 through 4 of therapy dicyclomine 10 mg capsule 10 mg PO BID PRN (Reason: abdominal pain) Qty: 30 1RF triamcinolone acetonide 0.1 % paste 1 ea mucous membrane PRN PRN (Reason: Mouth Irritation) lysine [L-Lysine] 500 mg Tablet 500 mg PO DAILY ezetimibe 10 mg tablet 10 mg PO DAILY B complex 41-asnph-V-biot-zinc [id number] jl-ai-tqi-mg Tablet 1 tablet PO DAILY Daily [phone] mg-mcg-mg Combo Pack 1 pkg PO DAILY Magic Mouthwash (Dr. Mar) 120 mL suspension 5 ml PO TID PRN (Reason: mouth irritation) Qty: 120 3RF Rx Instructions: diphenhydramine 12.5 mg/5 mL oral elixir 40 mL; Lidocaine Viscous 2 % mucosal solution 40 mL; Maalox 200 mg-200 mg-20 mg/5 mL oral suspension 40 mL; Per 120 mL gabapentin 300 mg capsule 300 mg PO BID Qty: 180 1RF losartan 100 mg tablet 100 mg PO DAILY Qty: 90 1RF Follow-up/Referrals: Theo Li MD [Primary Care Provider] -
[2024-10-26] MEDS: cloNIDine HCL 0.1 MG TABLET PO (13:08)
--- OUTSIDE RECORDS SUMMARY | 2024-10-26 13:13 | XMS_ITS | Clinical Summary ---
Author Organization [facility] Address [address] [place] [address] Phone Care Team Providers Care Stereotype Finisher Name Role Phone Unavailable Primary Care Provider [...] (1 - 1-dose 75+ series) 2026 Insurance [facility]
--- OUTSIDE RECORDS SUMMARY | 2024-10-26 13:13 | XMS_ITS | Clinical Summary ---
Author Organization [facility] Address [address] [place] [address] Care Team Providers Care Aircraft Armorer Name Role Phone Ruth Gomez MD Primary Care Provider Social History Tobacco Use Types Packs/Day Years [...] this topic Insurance MEDICARE [employer] Care Teams Aircraft Armorer Relationship Specialty Start Date End Date Ruth Gomez MD PCP - General FAMILY PRACTICE 03/17/20
--- OUTSIDE RECORDS SUMMARY | 2024-10-26 13:13 | XMS_ITS | Referral Summary ---
Author Organization [facility] Address [address] [place] [address] Care Team Providers Care Waste Collector Name Role Phone Ruth Gomez MD Unavailable [phone] Morales Guerrero MD Unavailable [phone] Theo Li MD Primary Care Provider [phone] Encounters Date Type Department Care Team Description 09/30/2024 Orders Only [facility] Cardiology [address] [place] [phone] Dima Armas MD Status post placement of implantable loop recorder (Primary Dx); H/O syncope 09/30/2024 7:15 AM CDT Ancillary Procedure [facility] Cardiology [address] [place] [phone] Status post placement of implantable loop recorder (Primary Dx); NICM (nonischemic cardiomyopathy) (HCC); NSVT (nonsustained ventricular tachycardia) (HCC); Syncope and collapse 08/19/2024 7:15 AM COVER CUTTER MACHINE Ancillary Procedure [facility] Cardiology [address] [place] [phone] Status post placement of implantable loop recorder (Primary Dx); NICM (nonischemic cardiomyopathy) (HCC); NSVT (nonsustained ventricular tachycardia) (HCC); Syncope and collapse from Last 3 Months Allergies Active Allergy Reactions Criticality Noted Date Comments Conj Estrog-Medroxyprogest Erick Other (See comments) Low 03/23/2015 Mouth sores Diclofenac Swelling Medium 05/17/2022 Rxflhiy-Zhf-Hlz Reductase Inhibitors Muscle pain Medium 06/21/2023 Sulfa [...] 06/21/2023 Assessment & Plan (06/21/2023 12:14 PM COVER CUTTER MACHINE): Patient reports constipation probiotics help control this best patient did not tolerate Linzess Recurrent UTI (urinary tract infection) 06/21/20 Assessment & Plan (06/21/2023 12:25 PM COVER CUTTER MACHINE): Patient advised me she is had a history recurrent UTI. He is seeing Dr. Jero Garland uro clerical administrative assistant in the past. He is done multiple tests etiology not found. Patient is not symptomatic at this time H/O syncope 04/04/2023 Medication side effects 05/03/2022 Gastroesophageal reflux disease 04/27/2022 Assessment & Plan (06/21/2023 12:04 PM COVER CUTTER MACHINE): Patient advised me on today's date 06/20/2023 [...] time Assessment & Plan (06/21/2023 12:28 PM COVER CUTTER MACHINE): This is a new patient to me [...] in your mouth on an nivia like [employer] Lower carb substitutions: [employer] carries a zero [...] in much longer they will become mushy [place] and/or coconut flour instead of regular flour [...] pork rinds For yogurt, try Two Good setswana yogurt Use Danielle for recipe ideas. Type [...] 01/25/2022 Assessment & Plan (06/21/2023 12:11 PM COVER CUTTER MACHINE): Patient advised colon cancer screening , not [...] (12/28/2021): Added automatically from request for surgery [id number] Impingement syndrome of left shoulder 12/28/2021 Overview (12/28/2021): Added automatically from request for surgery [id number] Biceps tendonitis on left 12/28/2021 Overview (12/28/2021): Added automatically from request for surgery [id number] Mixed hyperlipidemia 12/07/2021 Assessment & Plan (06/21/2023 12:00 PM COVER CUTTER MACHINE): Patient presently on Zetia she has a history of intolerance to statin is noted in patient's sales forecast analyst notes Dr. Kiran. 04/04/2023. I have no [...] 10/26/2021 Assessment & Plan (06/21/2023 12:15 PM COVER CUTTER MACHINE): Patient presently on losartan 100 mg daily [...] - chronic, stable - has been on millwork estimator Lorazepam 1.5mg nightly, once in a while she would take an extra 1/2 tablet - not on other medications for anxiety - no coexisting depression - continue current therapy No results found for: TSH Assessment & Plan (10/26/2021 3:12 PM CDT): - chronic, stable - has been on millwork estimator Lorazepam 1-1.5mg nightly - not on other medications for anxiety - no coexisting depression - may continue current therapy Fibromyalgia 10/07/2021 Assessment & Plan (06/21/2023 12:06 PM COVER CUTTER MACHINE): Patient advised me that gabapentin 300 mg [...] 10/06/2021 Assessment & Plan (06/21/2023 12:03 PM COVER CUTTER MACHINE): Pain records reveal she had a syncopal episode 09/26/2021. Evaluation cardiovascular etiology noted in sales forecast analyst notes Dr. Kiran April 04, 2023. This [...] stomach. 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 Overview (12/08/2021): 11/28 - Vitamin 12 was high so recommending cutting intake by half Assessment & Plan (06/21/2023 12:09 PM COVER CUTTER MACHINE): Patient's has had this problem 20+ years [...] well Assessment & Plan (06/07/2021 1:22 PM COVER CUTTER MACHINE): Start multi-vitamin Folic Acid 800 mg () [...] on file Legal Sex Female 12:58 PM COVER CUTTER MACHINE Gender Identity Not on file Sexual Orientation Not on file 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 Job End Date 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 Not on f ile Not on file Last Filed Vital Signs Vital Sign Reading Time Taken Comments Blood Pressure 132/74 05/14/2024 12:59 PM COVER CUTTER MACHINE Pulse 72 05/14/2024 12:59 PM COVER CUTTER MACHINE Temperature 36.9 C (98.5 F) 12/21/2023 10:23 AM CDT Respiratory Rate 18 12/21/2023 10:23 AM CDT Oxygen Saturation 97% 05/14/2024 12:59 PM COVER CUTTER MACHINE Inhaled Oxygen Concentration - - Weight 97.5 kg (215 lb) 05/14/2024 12:59 PM COVER CUTTER MACHINE Height 177.8 cm (5' 10 ) 05/14/2024 12:59 PM COVER CUTTER MACHINE Body Mass Index 30.85 05/14/2024 12:59 PM COVER CUTTER MACHINE Plan of Treatment Not on file Medical Devices Implanted Type Area Licensing Officer Device Identifier Shelf Expiration Date Model / Serial / Lot [employer] [id number] Ringloc+ 52mm Limit Hole Fin Hip 24 Shell Acetabular - Sn/A - [id number] Implanted:Qty: 1 on 05/02/2018 by Bert Lira MD at [facility] Left: Hip [employer] [id number] 02/17/2028 [id number] / N/A / [id number] [employer] [id number] Ringloc 36mm High Wall Hip +3mm 23 Liner Acetabular Arcomxl - Sn/A - [id number] Implanted:Qty: 1 on 05/02/2018 by Bert Lira MD at [facility] Left: Hip [employer] [id number] 03/29/2023 [id number] / N/A / [id number] [employer] [id number] Echo Bi-Metric 14mm 150mm Noncollar Reduce Proximal Profile Press - Sn/A - [id number] Implanted:Qty: 1 on 05/02/2018 by Bert Lira MD at [facility] Left: Hip [employer] [id number] 12/12/2027 [id number] / N/A / [id number] [employer] 650-1057 G7 36mm Hip Head Femoral Biolox Delta Option - Sn/A - [id number] Implanted:Qty: 1 on 05/02/2018 by Bert Lira MD at [facility] Left: Hip [employer] [id number] 10/21/2027 650-1057 / N/A / [id number] [employer] 650-1068 G7 Type 1 Hip +6mm Offset Taper Sleeve Centering Titanium Biolox - Sn/A - [id number] Implanted:Qty: 1 on 05/02/2018 by Bert Lira MD at [facility] Left: Hip [employer] [id number] 11/18/2027 650-1068 / N/A / [id number] Procedures Procedure Name Priority Date/Time Associated Diagnosis Comments DEVICE CHECK - REMOTE Routine 09/30/2024 2:15 PM CDT NICM (nonischemic cardiomyopathy) (HCC) NSVT (nonsustained ventricular tachycardia) (HCC) Syncope and collapse DEVICE CHECK - REMOTE Routine 08/19/2024 11:02 AM COVER CUTTER MACHINE NICM (nonischemic cardiomyopathy) (HCC) NSVT (nonsustained ventricular tachycardia) (HCC) Syncope and collapse STOOL DNA COLOGUARD Routine 07/13/2023 9:00 AM COVER CUTTER MACHINE Colon cancer screening DEXA AXIAL SKELETON BONE [...] DEVICE CHECK - REMOTE (08/19/2024 11:02 AM COVER CUTTER MACHINE) Anatomical Region Laterality Modality Other Narrative 08/26/2024 1:56 PM COVER CUTTER MACHINE Med[employer] REVEAL LinQ implanted October 12, 2023 [...] Continue to monitor remotely. Yoel Hart Device Fur Ironer Dima Armas MD [facility] PROCEDURES F inal Result * Stool DNA - Cologuard (07/13/2023 9:00 AM COVER CUTTER MACHINE) Stool DNA - Cologuard Negative Negative [facility] (CLIA #:[id number]) Comment: NEGATIVE TEST RESULT. A negative Cologuard [...] (Daryn Leahy al, N Engl J Med 2014;370(14):5937-6849) The normal value (reference range) for this assay is negative. COLOGUARD RE-SCREENING RECOMMENDATION: Periodic colorectal cancer screening is an important part of preventive healthcare for asymptomatic individuals at average risk for colorectal cancer. Following a negative Cologuard result, the [place] [employer] and U.S. Multi-Society Task Force screening guidelines recommend a Cologuard re-screening interval of 3 years. References: [place] [employer] Guideline for Colorectal Cancer Screening: https://www.cancer.org/cancer/kwxux-hwxhif-kebaad/enirkzcwl-dgljegtge-zdwitku/ac s-rec ommendations.html.; Sam DK, Yuniel CR, Cl PenaK, Colorectal Cancer Screening: Recommendations for Physicians and Patients from the U.S. Multi-Society Task Force on Colorectal Cancer Screening , Am J Gastroenterology 2017; 112:4849-6932. TEST DESCRIPTION: Composite algorithmic analysis of stool [...] (Daryn Leahy al, N Engl J Med 2014;370(14):3572-7403.) Cologuard may produce a false negative or false positive result (no colorectal cancer or precancerous polyp present at colonoscopy follow up). A negative Cologuard test result does not guarantee the absence of CRC or advanced adenoma (pre-cancer). The current Cologuard screening interval is every 3 years. ([place] [employer] and U.S. Multi-Society Task Force). Cologuard performance data in a 10,000 patient pivotal study using colonoscopy as the reference method can be accessed at the following location: www.[place].Padloc/results. Additional description of the Cologuard test process, warnings and precautions can be found at www.cologuard.com. Stool 07/13/2023 9:00 AM COVER CUTTER MACHINE 07/14/2023 1:49 PM COVER CUTTER MACHINE Alexander Pollard MD LAB BODY FLUIDS AND STOOLS ORDERABLES Final Result [facility] (CLIA #:[id number]) [address] [place] [address] * Dexa Axial Skeleton Bone Density 1 or 2 Site (03/17/2022 11:33 AM CDT) Anatomical Region Laterality Modality Body N/A Other 03/17/2022 7:59 PM CDT Narrative 03/17/2022 8:05 PM CDT EXAM DESCRIPTION: DEXA AXIAL SKELETON BONE DENSITY 1 OR MORE SITES REASON FOR STUDY: 71 y/o year old F with given history of screening. Postmenopausal Licensing Officer/Model: Light Magic Discovery SL (S/N [id number]) CLINICAL INFORMATION: Current height: 70 inches Maximum [...] Isaac Hu M.D. MF: ALAYNA Report ID: [id number] Reading Location: [place] [address] Procedure Note Isaac Hu MD - 03/17/2022 EXAM DESCRIPTION: DEXA AXIAL SKELETON BONE DENSITY 1 OR MORE SITES REASON FOR STUDY: 71 y/o year old F with given history ofscreening. Postmenopausal Licensing Officer/Model: Light Magic Discovery SL (S/N [id number]) CLINICAL INFORMATION: Current height: 70 inches Maximum [...] Isaac Hu M.D. MF: ALAYNA Report ID: [id number] Reading Location: [id number] Gregory Parks MD IMG DXA PROCEDURES Cristina [...] ORDERABLES Edited Result - Final [facility] [id number] Department [place] [address] from Last 3 Months or Most Recently Relevant to Health Maintenance Insurance [facility] MEDICARE [facility] Address: [address] [phone] [facility] MEDICARE [facility] Address: [address] [address] [place] [phone] [facility] MEDICARE [facility] Address: [address] [address] [place] [address] Advance Directives For more information, please contact: [phone] * Full Code (Latest Code Status on File) Date Activated Date Inactivated Comments 10/06/2021 12:51 PM 10/07/2021 6:51 PM * Full Code Date Activated Date Inactivated Comments 05/02/2018 11:21 AM 05/03/2018 3:58 PM Care Teams Waste Collector Relationship Specialty Start Date End Date Theo Li MD PCP - General Family Practice 12/06/23 Ruth Gomez MD 12/06/17 Morales Guerrero MD Consulting Physician Cardiovascular Disease 10/07/21
--- OUTSIDE RECORDS SUMMARY | 2024-10-26 13:13 | XMS_ITS | Clinical Summary ---
Author Organization [facility] Address [address] [place] [address] Care Team Providers Care Security Systems Manager Name Role Phone Ruth Gomez MD Unavailable Morales Guerrero MD Unavailable [phone] Theo Li MD Primary Care Provider [phone] Allergies Active Allergy Reactions Criticality Noted Date Comments Conj Estrog-Medroxyprogest Erick Other (See comments) Low 03/23/2015 Mouth sores Diclofenac Swelling Medium 05/17/2022 Yneonvw-Qjy-Tnu Reductase Inhibitors Muscle pain Medium 06/21/2023 Sulfa [...] (10/12/2023): Medtronic LNQ11. Dx; Syncope. DOI 10/12/2023-[place]. [facility]. Slow transit constipation 06/21/2023 Assessment & Plan (06/21/2023 12:14 PM CASTING TECHNICIAN): Patient reports constipation probiotics help control this best patient did not tolerate Linzess Recurrent UTI (urinary tract infection) 06/21/20 Assessment & Plan (06/21/2023 12:25 PM CASTING TECHNICIAN): Patient advised me she is had a history recurrent UTI. He is seeing Dr. Jero Garland uro corporate recruiter in the past. He is done multiple tests etiology not found. Patient is not symptomatic at this time H/O syncope 04/04/2023 Medication side effects 05/03/2022 Gastroesophageal reflux disease 04/27/2022 Assessment & Plan (06/21/2023 12:04 PM CASTING TECHNICIAN): Patient advised me on today's date 06/20/2023 [...] time Assessment & Plan (06/21/2023 12:28 PM CASTING TECHNICIAN): This is a new patient to me she is multiple health problems. History and physical completed patient's health risk assessment health maintenance reviewed in addressed. Patient is not interested in immunizations a detailed discussion regarding shingles vaccine and strongly encouraged it. Reviewed with her [facility] protocol in terms of home testing immediately [...] in your mouth on an nivia like [employer] Lower carb substitutions: [employer] carries a zero [...] in much longer they will become mushy [place] and/or coconut flour instead of regular flour [...] pork rinds For yogurt, try Two Good syrian yogurt Use [employer] for recipe ideas. Type [...] 01/25/2022 Assessment & Plan (06/21/2023 12:11 PM CASTING TECHNICIAN): Patient advised colon cancer screening , not [...] (12/28/2021): Added automatically from request for surgery [id number] Impingement syndrome of left shoulder 12/28/2021 Overview (12/28/2021): Added automatically from request for surgery [id number] Biceps tendonitis on left 12/28/2021 Overview (12/28/2021): Added automatically from request for surgery [id number] Mixed hyperlipidemia 12/07/2021 Assessment & Plan (06/21/2023 12:00 PM CASTING TECHNICIAN): Patient presently on Zetia she has a history of intolerance to statin is noted in patient's nurse sane notes Dr. Kiran. 04/04/2023. I have no [...] 10/26/2021 Assessment & Plan (06/21/2023 12:15 PM CASTING TECHNICIAN): Patient presently on losartan 100 mg daily [...] - chronic, stable - has been on half-way Lorazepam 1.5mg nightly, once in a while [...] 10/07/2021 Assessment & Plan (06/21/2023 12:06 PM CASTING TECHNICIAN): Patient advised me that gabapentin 300 mg [...] 10/06/2021 Assessment & Plan (06/21/2023 12:03 PM CASTING TECHNICIAN): Pain records reveal she had a syncopal episode 09/26/2021. Evaluation cardiovascular etiology noted in nurse sane notes Dr. Kiran April 04, 2023. This [...] stomach. 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 Overview (12/08/2021): 11/28 - Vitamin 12 was high so recommending cutting intake by half Assessment & Plan (06/21/2023 12:09 PM CASTING TECHNICIAN): Patient's has had this problem 20+ years [...] well Assessment & Plan (06/07/2021 1:22 PM CASTING TECHNICIAN): Start multi-vitamin Folic Acid 800 mg () [...] Description 09/30/2024 7:15 AM CDT Ancillary Procedure [facility] [address] [place] [phone] Status post placement of implantable loop recorder (Primary Dx); NICM (nonischemic cardiomyopathy) (HCC); NSVT (nonsustained ventricular tachycardia) (HCC); Syncope and collapse 09/30/2024 Orders Only [facility] [address] [place] [phone] Dima Armas MD Status post placement of implantable loop recorder (Primary Dx); H/O syncope 08/19/2024 7:15 AM CASTING TECHNICIAN Ancillary Procedure [facility] [address] [place] [phone] Status post placement of implantable loop recorder [...] on file Legal Sex Female 12:58 PM CASTING TECHNICIAN Gender Identity Not on file Sexual Orientation Not on file 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 Job 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 Not on f [...] Comments Blood Pressure 132/74 05/14/2024 12:59 PM CASTING TECHNICIAN Pulse 72 05/14/2024 12:59 PM CASTING TECHNICIAN Temperature 36.9 C (98.5 F) 12/21/2023 10:23 AM CDT Respiratory Rate 18 12/21/2023 10:23 AM CDT Oxygen Saturation 97% 05/14/2024 12:59 PM CASTING TECHNICIAN Inhaled Oxygen Concentration - - Weight 97.5 kg (215 lb) 05/14/2024 12:59 PM CASTING TECHNICIAN Height 177.8 cm (5' 10 ) 05/14/2024 12:59 PM CASTING TECHNICIAN Body Mass Index 30.85 05/14/2024 12:59 PM CASTING TECHNICIAN Plan of Treatment Health Maintenance Due Date [...] Discontinued 07/13/2023 Medical Devices Implanted Type Area Paleology Professor Device Identifier Shelf Expiration Date Model / Serial / Lot [employer] [id number] Ringloc+ 52mm Limit Hole Fin Hip 24 Shell Acetabular - Sn/A - [id number] Implanted:Qty: 1 on 05/02/2018 by Bert Lira MD at [facility] Left: Hip [employer] [id number] 02/17/2028 [id number] / N/A / [id number] [employer] [id number] Ringloc 36mm High Wall Hip +3mm 23 Liner Acetabular Arcomxl - Sn/A - [id number] Implanted:Qty: 1 on 05/02/2018 by Bert Lira MD at [facility] Left: Hip [employer] [id number] 03/29/2023 [id number] / N/A / [id number] [employer] [id number] Echo Bi-Metric 14mm 150mm Noncollar Reduce Proximal Profile Press - Sn/A - [id number] Implanted:Qty: 1 on 05/02/2018 by Bert Lira MD at [facility] Left: Hip [employer] [id number] 12/12/2027 [id number] / N/A / [id number] [employer] 650-1057 G7 36mm Hip Head Femoral Biolox Delta Option - Sn/A - [id number] Implanted:Qty: 1 on 05/02/2018 by Bert Lira MD at [facility] Left: Hip [employer] [id number] 10/21/2027 650-1057 / N/A / [id number] [employer] 650-1068 G7 Type 1 Hip +6mm Offset Taper Sleeve Centering Titanium Biolox - Sn/A - [id number] Implanted:Qty: 1 on 05/02/2018 by Bert Lira MD at [facility] Left: Hip [employer] [id number] 11/18/2027 650-1068 / N/A / [id number] Procedures Procedure Name Priority Date/Time Associated Diagnosis Comments DEVICE CHECK - REMOTE Routine 09/30/2024 2:15 PM CDT NICM (nonischemic cardiomyopathy) (HCC) NSVT (nonsustained ventricular tachycardia) (HCC) Syncope and collapse DEVICE CHECK - REMOTE Routine 08/19/2024 11:02 AM CASTING TECHNICIAN NICM (nonischemic cardiomyopathy) (HCC) NSVT (nonsustained ventricular tachycardia) (HCC) Syncope and collapse STOOL DNA COLOGUARD Routine 07/13/2023 9:00 AM CASTING TECHNICIAN Colon cancer screening DEXA AXIAL SKELETON BONE [...] PM CDT Medtronic LNQ11. Dx; Syncope. DOI 10/12/2023-[place]. [facility] remote. Routine ILR remote. Normal device function. Battery function-OK. Presenting rhythm: NSR Medications: Losartan 100 mg Counters since last scheduled transmission on 08/20/24. No auto or patient recorded episodes noted. See scanned report. [facility] remote f/u 11/11/24 sign. Josef Biggs RN us Dima Armas MD [facility] PROCEDURES F inal Result * DEVICE CHECK - REMOTE (08/19/2024 11:02 AM CASTING TECHNICIAN) Anatomical Region Laterality Modality Other Narrative 08/26/2024 1:56 PM CASTING TECHNICIAN Medtronic REVEAL LinQ implanted October 12, 2023 [...] Continue to monitor remotely. Yoel Hart Device Hander In us Dima Armas MD CV CARDIAC SERVICES PROCEDURES F inal Result * Stool DNA - Cologuard (07/13/2023 9:00 AM CASTING TECHNICIAN) Stool DNA - Cologuard Negative Negative [facility] [facility] (CLIA #:[id number]) Comment: NEGATIVE TEST RESULT. A negative Cologuard [...] Sanford et al, N Engl J Med 2014;370(14):4020-6645) The normal value (reference range) for this assay is negative. COLOGUARD RE-SCREENING RECOMMENDATION: Periodic colorectal cancer screening is an important part of preventive healthcare for asymptomatic individuals at average risk for colorectal cancer. Following a negative Cologuard result, the [place] Cancer Society and U.S. Multi-Society Task Force screening guidelines recommend a Cologuard re-screening interval of 3 years. References: [place] Cancer Society Guideline for Colorectal Cancer Screening: https://www.cancer.org/cancer/wyzxe-tijwqv-ntzile/bplavfawt-nfrzdybfx-vgwhfbb/ac s-rec ommendations.html.; Sam DK, Yuniel OTERO, Cl REYES, Colorectal Cancer Screening: Recommendations for Physicians and Patients from the U.S. Multi-Society Task Force on Colorectal Cancer Screening , Am J Gastroenterology 2017; 112:0544-4064. TEST DESCRIPTION: Composite algorithmic analysis of stool [...] Cooley. et al, N Engl J Med 2014;370(14):4012-8222.) Cologuard may produce a false negative or false positive result (no colorectal cancer or precancerous polyp present at colonoscopy follow up). A negative Cologuard test result does not guarantee the absence of CRC or advanced adenoma (pre-cancer). The current Cologuard screening interval is every 3 years. ([place] Cancer Society and U.S. Multi-Society Task Force). Cologuard performance data in a 10,000 patient pivotal study using colonoscopy as the reference method can be accessed at the following location: www.[employer]/results. Additional description of the Cologuard test process, warnings and precautions can be found at [email or web address].comrd.com. Stool 07/13/2023 9:00 AM CASTING TECHNICIAN 07/14/2023 1:49 PM CASTING TECHNICIAN us Alexander Pollard MD LAB BODY FLUIDS AND STOOLS ORDERABLES Final Result [employer] (CLIA #:[id number]) [place] [address] * Dexa Axial Skeleton Bone Density 1 or 2 Site (03/17/2022 11:33 AM CDT) Anatomical Region Laterality Modality Body N/A Other 03/17/2022 7:59 PM CDT Narrative 03/17/2022 8:05 PM CDT EXAM DESCRIPTION: DEXA AXIAL SKELETON BONE DENSITY 1 OR MORE SITES REASON FOR STUDY: 71 y/o year old F with given history of screening. Postmenopausal Paleology Professor/Model: [employer] SL (S/N [id number]) CLINICAL INFORMATION: Current height: 70 inches Maximum [...] Isaac Hu M.D. MF: ALAYNA Report ID: [id number] Reading Location: [id number] Procedure Note Isaac Hu MD - 03/17/2022 EXAM DESCRIPTION: DEXA AXIAL SKELETON BONE DENSITY 1 OR MORE SITES REASON FOR STUDY: 71 y/o year old F with given history ofscreening. Postmenopausal Paleology Professor/Model: [employer] SL (S/N [id number]) CLINICAL INFORMATION: Current height: 70 inches Maximum [...] Isaac Hu M.D. MF: ALAYNA Report ID: [id number] Reading Location: [place] [address] Gregory Parks MD IMG DXA PROCEDURES Cristina [...] ORDERABLES Edited Result - Final [facility] DALY [id number] Department [place] [address] from Last 3 Months or Most Recently Relevant to Health Maintenance Insurance [facility] MEDIC[facility] [employer] Address: [address] [address] [place] [address] [employer] MEDICARE [employer]VANTAGE [facility] MED[facility] Address: [address] [address] [place] [phone] [employer] MEDICARE [employer] [facility] Address: [address] [address] [place] [address] Advance Directives For more information, please contact: [phone] * Full Code (Latest Code Status on File) Date Activated Date Inactivated Comments 10/06/2021 12:51 PM 10/07/2021 6:51 PM * Full Code Date Activated Date Inactivated Comments 05/02/2018 11:21 AM 05/03/2018 3:58 PM Care Teams Security Systems Manager Relationship Specialty Start Date End Date Theo Li MD PCP - General Family Practice 12/06/23 Ruth Gomez MD 12/06/17 Morales Guerrero MD Consulting Physician Cardiovascular Disease 10/07/21
--- OUTSIDE RECORDS SUMMARY | 2024-10-26 13:13 | XMS_ITS | CONTINUITY OF CARE DOCUMENT ---
Author Name neris cordon Address Unknown Organization [facility] Address [id number] [place] [address] [address] [place] [address] Phone [phone] Care Team Providers Care Stop Attacher Name Role Phone neris cordon Unavailable Unavailable
--- OUTSIDE RECORDS SUMMARY | 2024-10-26 13:13 | XMS_ITS | Continuity of Care Document ---
Author Organization [facility] Address [address] [place] [address] [place] [address] Phone Care Team Providers Care Medical Office Administrator Name Role Phone Bull Corrigan Unavailable Unavailable Procedures Procedure Date Office Consultation Advance Directives Directive Yes / No Effective Date File Name No Information Encounters Encounter Description Practice Location Reason(s) For Visit Diagnoses Date Provider Providers Copied on Encounter Office Consultation [facility], [address] [place] [address] [address], [place], [place], [id number], [place] tel:[phone] [facility] No Information 0 Shekhar Gottlieb. [address] [place], [place], [facility], . tel:[phone] Referring Provider: Miguel Cottrell [place], [place], [facility]. tel:[phone] Family History Family Member Type Diagnosis Age At Onset No Information Payers Payer name Insurance type Covered democrat ID Authoriza tion(s) No Information Social History [...]
== END 2024-10-26 13:30 | disposition home or self-care (01) ==
LOC: CHSED 13:11
PROVIDERS: Emergency Provider Emergency Medicine; PCP Family Medicine
DX: I10 Essential (primary) hypertension (principal); R60.0 Localized edema; E78.5 Hyperlipidemia, unspecified
CPT/HCPCS: 99283; A9270

== ENCOUNTER 2024-12-03 09:07 | Outpatient (CLI) | payer MEDICARE, SELFPAY ==
--- OUTSIDE RECORDS SUMMARY | 2024-12-03 09:12 | XMS_ITS | Clinical Summary ---
Author Organization [facility] Address [address] [place] [address] Phone Care Team Providers Care Applique Cutter Name Role Phone Unavailable Primary Care Provider [...] 10:30 AM CDT Height 174 cm (5' 8.5) 02/02/2010 10:30 AM CDT Body Mass Index [...] (1 - 1-dose 75+ series) 2026 Insurance [facility]
--- OUTSIDE RECORDS SUMMARY | 2024-12-03 09:12 | XMS_ITS | Clinical Summary ---
Author Organization [facility] Address [address] [place] [address] Phone Care Team Providers Care Telephonic Rn Name Role Phone Theo Li MD Primary Care Provider Allergies Active Allergy Reactions Criticality Noted Date [...] Comments Blood Pressure 146/86 06/24/2024 10:04 AM OVERHEAD IRRIGATOR Pulse 71 06/24/2024 10:04 AM OVERHEAD IRRIGATOR Temperature 36.5 C (97.7 F) 06/24/2024 10:04 AM OVERHEAD IRRIGATOR Respiratory Rate 16 06/24/2024 10:04 AM OVERHEAD IRRIGATOR Oxygen Saturation 100% 06/24/2024 10:04 AM OVERHEAD IRRIGATOR Inhaled Oxygen Concentration - - Weight 97 kg (213 lb 12.8 oz) 06/24/2024 10:04 A M OVERHEAD IRRIGATOR Height 177.8 cm (5' 10) 06/24/2024 10:04 AM OVERHEAD IRRIGATOR Body Mass Index 30.68 06/24/2024 10:04 AM OVERHEAD IRRIGATOR Plan of Treatment Health Maintenance Due Date Last Done Comments Hepatitis C Virus (HCV) Screening 1950 Mammogram 1950 TdaP Immunization 1950 Colonoscopy 1996 Colorectal Cancer Screening 1996 Cologuard 2001 Immunochemical Fecal Occult Blood 2001 Pneumococcal Immunization (5 0+ years) (1 of 1 - PCV) 2001 Zoster Immunization (1 of 2) 2001 Influenza Immunization (#1) 2024 SARS-COV-2 Immunization ( - season) 2024 DEXA Bone Density 03/17/2024 03/17/2022 [...] to complete this topic Insurance [facility] Care Teams Telephonic Rn Relationship Specialty Start Date End Date Theo Li MD [address] [place] [address] PCP - General Family Medicine 02/12/24
--- OUTSIDE RECORDS SUMMARY | 2024-12-03 09:12 | XMS_ITS | CONTINUITY OF CARE DOCUMENT ---
Author Name nersi cordon Address Unknown Organization [facility] Address [address] [place] [address] [address] [place] [address] Phone [phone] Care Team Providers Care Cable Braider Name Role Phone neris cordon Unavailable Unavailable
--- OUTSIDE RECORDS SUMMARY | 2024-12-03 09:12 | XMS_ITS | Clinical Summary ---
Author Organization [facility] Address [address] [place] [address] Care Team Providers Care Miter Cutter Name Role Phone Ruth Gomez MD Unavailable [phone] Morales Guerrero MD Unavailable [phone] Theo Li MD Primary Care Provider [phone] Allergies Active Allergy Reactions Criticality Noted Date Comments Conj Estrog-Medroxyprogest Erick Other (See comments) Low 03/23/2015 Mouth sores Diclofenac Swelling Medium 05/17/2022 Sxtsnxc-Nvi-Bfd Reductase Inhibitors Muscle pain Medium 06/21/2023 Sulfa [...] (1,000 mcg total) by mouth daily Active furosemide (LASIX) 20 mg tablet Take 1 tablet (20 mg total) by mouth daily 11/05/19 25 Active metoprolol XL (TOPROL-XL) 25 mg extended release tablet Take 1 tablet (25 mg total) by mouth daily 10/31/19 25 Active empagliflozin (JARDIANCE) 10 mg tablet Take 1 tablet (10 mg total) by mouth daily 30 tablet 11 11/14/19 25 Active Active Problems Problem Noted Date Diagnosed Date Visit for wound check 10/19/2023 Status post placement of implantable loop record er 10/12/2023 Overview (10/12/2023): Medtronic LNQ11. Dx; Syncope. DOI 10/12/2023-[place]. Carelink remote. Slow transit constipation 06/21/2023 Assessment & Plan (06/21/2023 12:14 PM ENDLESS TRACK VEHICLE MECHANIC): Patient reports constipation probiotics help control this best patient did not tolerate Linzess Recurrent UTI (urinary tract infection) 06/21/20 Assessment & Plan (06/21/2023 12:25 PM ENDLESS TRACK VEHICLE MECHANIC): Patient advised me she is had a history recurrent UTI. He is seeing Dr. Jero Garland uro pulp grinder and blender in the past. He is done multiple tests etiology not found. Patient is not symptomatic at this time H/O syncope 04/04/2023 Medication side effects 05/03/2022 Gastroesophageal reflux disease 04/27/2022 Assessment & Plan (06/21/2023 12:04 PM ENDLESS TRACK VEHICLE MECHANIC): Patient advised me on today's date 06/20/2023 [...] time Assessment & Plan (06/21/2023 12:28 PM ENDLESS TRACK VEHICLE MECHANIC): This is a new patient to me [...] in your mouth on an nivia like [employer] Lower carb substitutions: Huber carries a zero net carb bread If [...] in much longer they will become mushy [place] and/or coconut flour instead of regular flour [...] pork rinds For yogurt, try Two Good maori yogurt Use Danielle for recipe ideas. Type [...] 01/25/2022 Assessment & Plan (06/21/2023 12:11 PM ENDLESS TRACK VEHICLE MECHANIC): Patient advised colon cancer screening , not [...] (12/28/2021): Added automatically from request for surgery [id number] Impingement syndrome of left shoulder 12/28/2021 Overview (12/28/2021): Added automatically from request for surgery [id number] Biceps tendonitis on left 12/28/2021 Overview (12/28/2021): Added automatically from request for surgery [id number] Mixed hyperlipidemia 12/07/2021 Assessment & Plan (06/21/2023 12:00 PM ENDLESS TRACK VEHICLE MECHANIC): Patient presently on Zetia she has a history of intolerance to statin is 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 Kiran. 04/04/2023. I have no [...] 10/26/2021 Assessment & Plan (06/21/2023 12:15 PM ENDLESS TRACK VEHICLE MECHANIC): Patient presently on losartan 100 mg daily [...] - chronic, stable - has been on long term care pharmacist Lorazepam 1.5mg nightly, once in a while she would take an extra 1/2 tablet - not on other medications for anxiety - no coexisting depression - continue current therapy No results found for: TSH Assessment & Plan (10/26/2021 3:12 PM CDT): - chronic, stable - has been on intermediate Lorazepam 1-1.5mg nightly - not on other medications for anxiety - no coexisting depression - may continue current therapy Fibromyalgia 10/07/2021 Assessment & Plan (06/21/2023 12:06 PM ENDLESS TRACK VEHICLE MECHANIC): Patient advised me that gabapentin 300 mg [...] 10/06/2021 Assessment & Plan (06/21/2023 12:03 PM ENDLESS TRACK VEHICLE MECHANIC): Pain records reveal she had a syncopal episode 09/26/2021. Evaluation cardiovascular etiology noted in lighting fixtures decorator notes Dr. Kiran April 04, 2023. This [...] stomach. 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 She uses a non formulary prescription recommended by a retired ear nose and throat doctor Dr. Gracia that gives her some relief. Magic mouthwash NON FORMULARY, FOR CLINIC ADMINISTERED MEDICATIONS ONLY, (not in database) Provider, MD Noble Dose, Frequency: 1 each, Once Summary: Apply [...] well Assessment & Plan (06/07/2021 1:22 PM ENDLESS TRACK VEHICLE MECHANIC): Start multi-vitamin Folic Acid 800 mg () [...] Encounters Date Type Department Care Team Description 11/13/2024 1:45 PM CDT Office Visit [facility] [address] [facility] [address] [place] [phone] Dima Armas MD Chronic diastolic congestive heart failure (HCC) (Primary Dx); History of syncope; Status post placement of implantable loop recorder; Hypertension, essential; Anxiety 11/11/2024 7:15 AM CDT Ancillary Procedure [facility] [address] [place] [address] [facility] ALLAN Joseph [id number] NICM (nonischemic cardiomyopathy) (HCC); NSVT (nonsustained ventricular tachycardia) (HCC); Syncope and collapse 09/30/2024 7:15 AM CDT Ancillary Procedure [facility] [address] [place] [address] [facility] [place] [phone] Status post placement of implantable loop recorder (Primary Dx); NICM (nonischemic cardiomyopathy) ([facility]); NSVT (nonsustained ventricular tachycardia) ([facility]); Syncope and collapse 09/30/2024 Orders Only [facility] Card[facility] [address] [place] [phone] Dima Armas MD Status post placement of implantable loop recorder (Primary Dx); H/O syncope from Last 3 Months Immunizations Immunization Administration [...] on file Legal Sex Female 12:58 PM ENDLESS TRACK VEHICLE MECHANIC Gender Identity Not on file Sexual Orientation Not on file 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 Job End Date 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 Not on file Not on f [...] Sign Reading Time Taken Comments Blood Pressure 128/78 11/13/2024 1:25 PM CDT Pulse 69 11/13/2024 1:25 PM CDT Temperature 36.9 C (98.5 F) 12/21/2023 10:23 AM CDT Respiratory Rate 18 12/21/2023 10:23 AM CDT Oxygen Saturation 97% 11/13/2024 1:25 PM CDT Inhaled Oxygen Concentration - - Weight 98.4 kg (217 lb) 11/13/2024 1:25 PM CDT Height 177.8 cm (5' 10) 11/13/2024 1:25 PM CDT Body Mass Index 31.14 11/13/2024 1:25 PM CDT Plan of Treatment Health Maintenance Due Date Last Done Comments Breast Cancer Screening-Mammogram 1950 Colon Cancer Screening-Colonoscopy 1950 DTaP/Tdap/Td Vaccine (1 - Tdap) 1962 Hepatitis B Screening 1969 Pneumococcal vaccine 65+ (1 of 2 - PCV) 1970 Zoster Vaccine (1 of 2) 2001 Covid-19 Vaccine (4 - 2023-2 5 season) 2024 06/10/2021, 11/10/2020, 10/13/2020 Osteoporosis Screening-Bone Density Scan 03/17/2024 03/17/2022 Depression Screening 06/20/2024 06/20/2023, 04/27/2022, 02/22/2022, Additional history exists Fall Risk Assessment 06/20/2024 06/20/2023, 04/27/2022, 02/22/2022, Additional history exists Well Visit 65+ 06/20/2024 06/20/2023 Influenza Vaccine (Season Ended) 2025 Hepatitis C Screening Completed 12/07/2021 Colon Cancer Screening-DNA Stool Discontinued 07/13/19 Colon Cancer Screening-FIT Discontinued 07/13/2023 Medical Devices Implanted Type Area Continuity Tester Device Identifier Shelf Expiration Date Model / Serial / Lot [employer] [id number] Ringloc+ 52mm Limit Hole Fin Hip 24 Shell Acetabular - Sn/A - [id number] Implanted:Qty: 1 on 05/02/2018 by Bert Lira MD at [facility] Left: Hip [employer] [id number] 02/17/2028 [id number] / N/A / [id number] [employer] [id number] Ringloc 36mm High Wall Hip +3mm 23 Liner Acetabular Arcomxl - Sn/A - [id number] Implanted:Qty: 1 on 05/02/2018 by Bert Lira MD at [facility] Left: Hip [employer] [id number] 03/29/2023 [id number] / N/A / [id number] [employer] [id number] Echo Bi-Metric 14mm 150mm Noncollar Reduce Proximal Profile Press - Sn/A - [id number] Implanted:Qty: 1 on 05/02/2018 by Bert Lira MD at [facility] Left: Hip [employer] [id number] 12/12/2027 [id number] / N/A / [id number] [employer] 650-1057 G7 36mm Hip Head Femoral Biolox Delta Option - Sn/A - [id number] Implanted:Qty: 1 on 05/02/2018 by Bert Lira MD at [facility] Left: Hip [employer] [id number] 10/21/2027 650-4097 / N/A / [id number] [employer] 650-1068 G7 Type 1 Hip +6mm Offset Taper Sleeve Centering Titanium Biolox - Sn/A - [id number] Implanted:Qty: 1 on 05/02/2018 by Bert Lira MD at [facility] Left: Hip [employer] [id number] 11/18/2027 650-1068 / N/A / [id number] Procedures Procedure Name Priority Date/Time Associated Diagnosis Comments ELECTROCARDIOGRAM REPORT Routine 11/13/2024 History of syncope Status post placement of implantable loop recorder DEVICE CHECK - REMOTE Routine 09/30/2024 2:15 PM CDT NICM (nonischemic cardiomyopathy) (HCC) NSVT (nonsustained ventricular tachycardia) (HCC) Syncope and collapse STOOL DNA COLOGUARD Routine 07/13/2023 9:00 AM ENDLESS TRACK VEHICLE MECHANIC Colon cancer screening DEXA AXIAL SKELETON BONE DENSITY 1 OR MORE SITES Schedule Routine, Read Routine (OP Routine) 03/17/2022 11:33 AM CDT Postmenopausal HEPATITIS C ANTIBODY Routine 12/07/2021 11:27 AM CDT Need for hepatitis C screening test from Last 3 Months or Most Recently Relevant to Health Maintenance Results * Electrocardiogram Report (11/13/2024) 11/13/2024 Dima Armas MD ECG ORDERABLES Edited Result - Final * DEVICE CHECK - REMOTE (09/30/2024 2:15 PM CDT) Anatomical Region Laterality Modality Other Narrative 10/07/2024 7:35 PM CDT Medtronic LNQ11. Dx; Syncope. DOI 10/12/2023-[place]. Carelink remote. Routine ILR remote. Normal device function. Battery function-OK. Presenting rhythm: NSR Medications: Losartan 100 mg Counters since last scheduled transmission on 08/20/24. No auto or patient recorded episodes noted. See scanned report. CareLink remote f/u 11/11/24 sign. Josef Biggs RN Dima Armas MD [facility] PROCEDURES F inal Result * Stool DNA - Cologuard (07/13/2023 9:00 AM ENDLESS TRACK VEHICLE MECHANIC) Pathologist [facility] Stool DNA - Cologuard Negative Negative [employer] (CLIA #:[id number]) Comment: NEGATIVE TEST RESULT. A negative Cologuard [...] Sanford et al, N Engl J Med 2014;370(14):1243-6609) The normal value (reference range) for this assay is negative. COLOGUARD RE-SCREENING RECOMMENDATION: Periodic colorectal cancer screening is an important part of preventive healthcare for asymptomatic individuals at average risk for colorectal cancer. Following a negative Cologuard result, the [place] [employer] Society and U.S. Multi-Society Task Force screening guidelines recommend a Cologuard re-screening interval of 3 years. References: [place] [employer] Guideline for Colorectal Cancer Screening: https://www.cancer.org/cancer/mtdrb-mtgwff-lymglw/nfcdfigqf-udvgvphal-cuzixvp/ac s-rec ommendations.html.; Sam FELIX, Yuniel OTERO, Cl REYES, Colorectal Cancer Screening: Recommendations for Physicians and Patients from the U.S. Multi-Society Task Force on Colorectal Cancer Screening , Am J Gastroenterology 2017; 112:0304-3343. TEST DESCRIPTION: Composite algorithmic analysis of stool [...] Sanford et al, N Engl J Med 2014;370(14):5934-5386.) Cologuard may produce a false negative or false positive result (no colorectal cancer or precancerous polyp present at colonoscopy follow up). A negative Cologuard test result does not guarantee the absence of CRC or advanced adenoma (pre-cancer). The current Cologuard screening interval is every 3 years. ([place] [employer] Society and U.S. Multi-Society Task Force). Cologuard performance data in a 10,000 patient pivotal study using colonoscopy as the reference method can be accessed at the following location: www.[employer].Tynt/results. Additional description of the Cologuard test process, warnings and precautions can be found at www.HAULrd.com. Stool 07/13/2023 9:00 AM ENDLESS TRACK VEHICLE MECHANIC 07/14/2023 1:49 PM ENDLESS TRACK VEHICLE MECHANIC Alexander Pollard MD LAB BODY FLUIDS AND STOOLS ORDERABLES Final Result [employer] (CLIA #:[id number]) [place] [address] * Dexa Axial Skeleton Bone Density 1 or 2 Site (03/17/2022 11:33 AM CDT) Anatomical Region Laterality Modality Body N/A Other 03/17/2022 7:59 PM CDT Narrative 03/17/2022 8:05 PM CDT EXAM DESCRIPTION: DEXA AXIAL SKELETON BONE DENSITY 1 OR MORE SITES REASON FOR STUDY: 71 y/o year old F with given history of screening. Postmenopausal Continuity Tester/Model: Software Art[employer] SL (S/N [id number]) CLINICAL INFORMATION: Current height: 70 inches Maximum [...] Isaac Hu M.D. MF: ALAYNA Report ID: [id number] Reading Location: [address] Note Isaac Hu MD - 03/17/2022 EXAM DESCRIPTION: DEXA AXIAL SKELETON BONE DENSITY 1 OR MORE SITES REASON FOR STUDY: 71 y/o year old F with given history ofscreening. Postmenopausal Continuity Tester/Model: Software Artistry SL (S/N [id number]) CLINICAL INFORMATION: Current height: 70 inches Maximum [...] Isaac Hu M.D. MF: ALAYNA Report ID: [id number] Reading Location: [place] [address] Gregory Parks MD IMG DXA PROCEDURES Cristina [...] RAL ORDERABLES Edited Result - Final [facility] [id number] [place] [place] [address] from Last 3 Months or Most Recently Relevant to Health Maintenance Insurance [facility] MEDICARE ADVANTAGE [id number] UHC MEDICARE ADVANTAGE UHC MEDICARE ADVANTAGE [place] [id number] Advance Directives For more information, please contact: [phone] * Full Code (Latest Code Status on File) Date Activated Date Inactivated Comments 10/06/2021 12:51 PM 10/07/2021 6:51 PM * Full Code Date Activated Date Inactivated Comments 05/02/2018 11:21 AM 05/03/2018 3:58 PM Care Teams Miter Cutter Relationship Specialty Start Date End Date Theo Li MD PCP - General Family Practice 12/06/23 Ruth Gomez MD 12/06/17 Morales Guerrero MD Consulting Physician Cardiovascular Disease 10/07/21
--- OUTSIDE RECORDS SUMMARY | 2024-12-03 09:13 | XMS_ITS | Referral Summary ---
Author Organization Formerly [facility] Address [address] [place] [address] Care Team Providers Care Airport Ramp Attendant Name Role Phone Ruth Gomez MD Unavailable [phone] Morales Guerrero MD Unavailable [phone] Theo Li MD Primary Care Provider [phone] Encounters Date Type Department Care Team Description 11/13/2024 1:45 PM CDT Office Visit [facility] Cardiology [address] [facility] [address] [place] [phone] Dima Armas MD Chronic diastolic congestive heart failure (HCC) (Primary Dx); History of syncope; Status post placement of implantable loop recorder; Hypertension, essential; Anxiety 11/11/2024 7:15 AM CDT Ancillary Procedure [facility] Cardiology [address] [place] [address] [place] [phone] NICM (nonischemic cardiomyopathy) (HCC); NSVT (nonsustained ventricular tachycardia) (HCC); Syncope and collapse 09/30/2024 Orders Only [facility] Cardiology [address] [place] [address] [place] [phone] Dima Armas MD Status post placement of implantable loop recorder (Primary Dx); H/O syncope 09/30/2024 7:15 AM CDT Ancillary Procedure [facility] Cardiology [address] [place] [address] [place] [phone] Status post placement of implantable loop recorder (Primary Dx); NICM (nonischemic cardiomyopathy) ([facility]); NSVT (nonsustained ventricular tachycardia) ([facility]); Syncope and collapse from Last 3 Months Allergies Active Allergy Reactions Criticality Noted Date Comments Conj Estrog-Medroxyprogest Erick Other (See comments) Low 03/23/2015 Mouth sores Diclofenac Swelling Medium 05/17/2022 Ysvzdyk-Rav-Any Reductase Inhibitors Muscle pain Medium 06/21/2023 Sulfa [...] (25 mg total) by mouth daily 10/31/19 Active empagliflozin (JARDIANCE) 10 mg tablet Take 1 tablet (10 mg total) by mouth daily 30 tablet 11 11/14/19 25 Active Active Problems Problem Noted Date Diagnosed Date Visit for wound check 10/19/2023 Status post placement of implantable loop record er 10/12/2023 Overview (10/12/2023): Medtronic LNQ11. Dx; Syncope. DOI 10/12/2023-Magno. Carelink remote. Slow transit constipation 06/21/2023 Assessment & Plan (06/21/2023 12:14 PM PROFESSOR OF LAT[employer]UDIES): Patient reports constipation probiotics help control this best patient did not tolerate Linzess Recurrent UTI (urinary tract infection) 06/21/20 Assessment & Plan (06/21/2023 12:25 PM PROFESSOR OF LAT[employer]UDIES): Patient advised me she is had a history recurrent UTI. 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 He is done multiple tests etiology not found. Patient is not symptomatic at this time H/O syncope 04/04/2023 Medication side effects 05/03/2022 Gastroesophageal reflux disease 04/27/2022 Assessment & Plan (06/21/2023 12:04 PM PROFESSOR OF [employer]): Patient advised me on today's date 06/20/2023 [...] time Assessment & Plan (06/21/2023 12:28 PM PROFESSOR OF LAT[employer]UD[employer]): This is a new patient to me [...] in your mouth on an nivia like sougou Lower carb substitutions: [employer] carries a zero [...] in much longer they will become mushy [place] and/or coconut flour instead of regular flour [...] pork rinds For yogurt, try Two Good hungarian yogurt Use Pinterest for recipe ideas. Type in low carb... [...] 01/25/2022 Assessment & Plan (06/21/2023 12:11 PM PROFESSOR [employer]): Patient advised colon cancer screening , not [...] (12/28/2021): Added automatically from request for surgery [id number] Impingement syndrome of left shoulder 12/28/2021 Overview (12/28/2021): Added automatically from request for surgery [id number] Biceps tendonitis on left 12/28/2021 Overview (12/28/2021): Added automatically from request for surgery [id number] Mixed hyperlipidemia 12/07/2021 Assessment & Plan (06/21/2023 12:00 PM PROFESSOR [employer]): Patient presently on Zetia she has a history of intolerance to statin is 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 Kiran. 04/04/2023. I have no [...] 10/26/2021 Assessment & Plan (06/21/2023 12:15 PM PROFESSOR [employer]): Patient presently on losartan 100 mg daily [...] - chronic, stable - has been on termite helper Lorazepam 1.5mg nightly, once in a while she would take an extra 1/2 tablet - not on other medications for anxiety - no coexisting depression - continue current therapy No results found for: TSH Assessment & Plan (10/26/2021 3:12 PM CDT): - chronic, stable - has been on termite helper Lorazepam 1-1.5mg nightly - not on other medications for anxiety - no coexisting depression - may continue current therapy Fibromyalgia 10/07/2021 Assessment & Plan (06/21/2023 12:06 PM PROFESSOR [employer]): Patient advised me that gabapentin 300 mg [...] 10/06/2021 Assessment & Plan (06/21/2023 12:03 PM PROFESSOR OF [employer]UDIES): Pain records reveal she had a syncopal episode 09/26/2021. Evaluation cardiovascular etiology noted in bracelet maker novelty notes Dr. Kiran April 04, 2023. This [...] stomach. 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 Overview (12/08/2021): 11/28 - Vitamin 12 was high so recommending cutting intake by half Assessment & Plan (06/21/2023 12:09 PM PROFESSOR [employer]): Patient's has had this problem 20+ years [...] well Assessment & Plan (06/07/2021 1:22 PM PROFESSOR [employer]): Start multi-vitamin Folic Acid 800 mg () [...] on file Legal Sex Female 12:58 PM PROFESSOR [employer] Gender Identity Not on file Sexual Orientation Not on file 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 Job End Date 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 Not on file Not on f [...] 11/13/2024 1:25 PM CDT Plan of Treatment Not on file Medical Devices Implanted Type Area Foundry Worker General Device Identifier Shelf Expiration Date Model / Serial / Lot [employer] [id number] Ringloc+ 52mm Limit Hole Fin Hip 24 Shell Acetabular - Sn/A - [id number] Implanted:Qty: 1 on 05/02/2018 by Bert Lira MD at [facility] Left: Hip [employer] [id number] 02/17/2028 [id number] / N/A / [id number] [employer] [id number] Ringloc 36mm High Wall Hip +3mm 23 Liner Acetabular Arcomxl - Sn/A - [id number] Implanted:Qty: 1 on 05/02/2018 by Bert Lira MD at [facility] Left: Hip [employer] [id number] 03/29/2023 [id number] / N/A / [id number] [employer] [id number] Echo Bi-Metric 14mm 150mm Noncollar Reduce Proximal Profile Press - Sn/A - [id number] Implanted:Qty: 1 on 05/02/2018 by Bert Lira MD at [facility] Left: Hip [employer] [id number] 12/12/2027 [id number] / N/A / [id number] [employer] 650-1057 G7 36mm Hip Head Femoral Biolox Delta Option - Sn/A - [id number] Implanted:Qty: 1 on 05/02/2018 by Bert Lira MD at [facility] Left: Hip [employer] [id number] 10/21/2027 650-1057 / N/A / [id number] [employer] 650-1068 G7 Type 1 Hip +6mm Offset Taper Sleeve Centering Titanium Biolox - Sn/A - [id number] Implanted:Qty: 1 on 05/02/2018 by Bert Lira MD at [facility] Left: Hip [employer] [id number] 11/18/2027 650-1068 / N/A / [id number] Procedures Procedure Name Priority Date/Time Associated Diagnosis Comments ELECTROCARDIOGRAM REPORT Routine 11/13/2024 History of syncope Status post placement of implantable loop recorder DEVICE CHECK - REMOTE Routine 09/30/2024 2:15 PM CDT NICM (nonischemic cardiomyopathy) (HCC) NSVT (nonsustained ventricular tachycardia) (HCC) Syncope and collapse STOOL DNA COLOGUARD Routine 07/13/2023 9:00 AM PROFESSOR [employer] Colon cancer screening DEXA AXIAL SKELETON BONE [...] PM CDT Medtronic LNQ11. Dx; Syncope. DOI 10/12/2023-Mineral. Carelink remote. Routine ILR remote. Normal device function. Battery function-OK. Presenting rhythm: NSR Medications: Losartan 100 mg Counters since last scheduled transmission on 08/20/24. No auto or patient recorded episodes noted. See scanned report. CareLink remote f/u 11/11/24 sign. Josef Biggs RN Dima Armas MD [facility] PROCEDURES F inal Result * Stool DNA - Cologuard (07/13/2023 9:00 AM PROFESSOR [employer]) Stool DNA - Cologuard Negative Negative [employer] (CLIA #:[id number]) Comment: NEGATIVE TEST RESULT. A negative Cologuard [...] Cooley. et al, N Engl J Med 2014;370(14):1505-6666) The normal value (reference range) for this assay is negative. COLOGUARD RE-SCREENING RECOMMENDATION: Periodic colorectal cancer screening is an important part of preventive healthcare for asymptomatic individuals at average risk for colorectal cancer. Following a negative Cologuard result, the [place] Cancer Society and U.S. Multi-Society Task Force screening guidelines recommend a Cologuard re-screening interval of 3 years. References: [place] [employer] Guideline for Colorectal Cancer Screening: https://www.cancer.org/cancer/hreot-sivwim-amqegj/jrjyhddid-kxxawhnta-dzwnlwk/ac s-rec ommendations.html.; Sam FELIX, Yuniel OTERO, Cl REYES, Colorectal Cancer Screening: Recommendations for Physicians and Patients from the U.S. Multi-Society Task Force on Colorectal Cancer Screening , Am J Gastroenterology 2017; 112:6756-2430. TEST DESCRIPTION: Composite algorithmic analysis of stool [...] Sanford et al, N Engl J Med 2014;370(14):5054-2961.) Cologuard may produce a false negative or false positive result (no colorectal cancer or precancerous polyp present at colonoscopy follow up). A negative Cologuard test result does not guarantee the absence of CRC or advanced adenoma (pre-cancer). The current Cologuard screening interval is every 3 years. ([place] [employer] and U.S. Multi-Society Task Force). Cologuard performance data in a 10,000 patient pivotal study using colonoscopy as the reference method can be accessed at the following location: www.Sviral/results. Additional description of the Cologuard test process, warnings and precautions can be found at www.cologuard.com. Stool 07/13/2023 9:00 AM PROFESSOR OF [employer]IES 07/14/2023 1:49 PM PROFESSOR OF [employer] Alexander Pollard MD LAB BODY FLUIDS AND STOOLS ORDERABLES Final Result [employer] (CLIA #:[id number]) [place] [address] * Dexa Axial Skeleton Bone Density 1 or 2 Site (03/17/2022 11:33 AM CDT) Anatomical Region Laterality Modality Body N/A Other 03/17/2022 7:59 PM CDT Narrative 03/17/2022 8:05 PM CDT EXAM DESCRIPTION: DEXA AXIAL SKELETON BONE DENSITY 1 OR MORE SITES REASON FOR STUDY: 71 y/o year old F with given history of screening. 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 MF: ALAYNA Report ID: [id number] Reading Location: [id number] Procedure Note Isaac Hu MD - 03/17/2022 EXAM DESCRIPTION: DEXA AXIAL SKELETON BONE DENSITY 1 OR MORE SITES REASON FOR STUDY: 71 y/o year old F with given history ofscreening. 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 MF: ALAYNA Report ID: [id number] Reading Location: [id number] Gregory Parks MD IMG DXA PROCEDURES Cristina [...] ORDERABLES Edited Result - Final [facility] DALY [id number] [address] Department [place] [address] from Last 3 Months or Most Recently Relevant to Health Maintenance Insurance [facility] MEDICARE ADVANTAGE [facility] MEDICARE ADVANTAGE [facility] MEDICARE ADVANTAGE Advance Directives For more information, please contact: [phone] * Full Code (Latest Code Status on File) Date Activated Date Inactivated Comments 10/06/2021 12:51 PM 10/07/2021 6:51 PM * Full Code Date Activated Date Inactivated Comments 05/02/2018 11:21 AM 05/03/2018 3:58 PM Care Teams Airport Ramp Attendant Relationship Specialty Start Date End Date Theo Li MD PCP - General Family Practice 12/06/23 Ruth Gomez MD 12/06/17 Morales Guerrero MD Consulting Physician Cardiovascular Disease 10/07/21
[2024-12-03 19:08] LABS: Alanine Aminotransferase 23 U/L (6-35); Albumin Level 4.4 g/dL (3.5-5.1); Alkaline Phosphatase 85 U/L (38-126); Anion Gap 7 mmol/L (4-12); Aspartate Amino Transferase 69 U/L (14-36); Bilirubin,Total 0.5 mg/dL (0.2-1.3); Blood Urea Nitrogen 32 mg/dL (7-17); Calcium 9.6 mg/dL (8.4-10.2); Carbon Dioxide 29 mmol/L (22-30); Chloride 101 mmol/L (98-107); Estimated Glomerular Filt Rate 42; Glucose 94 mg/dL (65-110); Sodium 137 mmol/L (137-145)
[2024-12-03 19:27] LABS: NT Pro B Type Natriuretic Pept 291 pg/mL (19.9-100)
[2024-12-03 20:15] LABS: Basophils Absolute Auto 0.1 K/mm3 (0.0-0.1); Eosinophils Absolute Auto 0.1 K/mm3 (0-0.3); Eosinophils Percent Auto 1.8 % (0-4.4); Hematocrit 44.1 % (37.0-47.0); Hemoglobin 13.7 g/dL (12.0-15.0); Immature Granulocyte Absolute 0.01 K/mm3 (0.00-0.031); Immature Granulocyte Percent A 0.2 % (0-0.5); Lymphocytes Absolute Auto 1.49 K/mm3 (0.9-3.2); Mean Corpuscular HGB Conc 31.1 g/dl (32-36); Mean Corpuscular Hemoglobin 30.5 pg (26-34); Mean Corpuscular Volume 98.2 fl (80-100); Mean Platelet Volume 10.9 fl (7.4-10.4); Monocytes Absolute Auto 0.6 K/mm3 (0.1-0.6); Monocytes Percent Auto 9.6 % (2.6-8.5); Neutrophils Absolute Auto 3.7 K/mm3 (1.3-6.7); Neutrophils Percent Auto 62.4 % (45.5-73.1); Platelet Count Result 189 k/mm3 (150-375); Red Blood Count 4.49 M/mm3 (4.2-5.4); Red Cell Distribution Width 13.6 % (11.5-14.5)
== END 2024-12-03 09:08 | disposition home or self-care (01) ==
LOC: ANHBWCLAB 09:10
PROVIDERS: PCP Family Medicine; Visit Provider Internal Medicine Cardiovascular Disease
DX: I50.32 Chronic diastolic (congestive) heart failure (principal)
CPT/HCPCS: 36415; 80053; 83880; 85025

== ENCOUNTER 2024-12-26 11:32 | Outpatient (CLI) | payer MEDICARE, SELFPAY ==
--- OUTSIDE RECORDS SUMMARY | 2024-12-26 12:21 | XMS_ITS | Referral Summary ---
Author Organization [facility] Healthcare Address [address] [place] [address] Care Team Providers Care Business Analyst Manager Name Role Phone Ruth Gomez MD Unavailable [phone] Morales Guerrero MD Unavailable [phone] Theo Li MD Primary Care Provider [phone] Encounters Date Type Department Care Team Description 12/23/2024 Results Follow-Up [facility] Cardiology [address] [facility] [address] [place] [phone] Dima Aviles MD Transthoracic Echo (TTE) Complete W Doppler/CF 12/20/2024 Telephone [facility] [address] [place] [phone] Dima Aviles MD 12/19/2024 Orders Only [facility] [address] [place] [phone] Alexander Pollard MD 12/18/2024 2:00 PM CDT Ancillary Procedure [facility]iology [address] [place] [address] [address] [place] [phone] Chronic diastolic congestive heart failure (HCC) 12/12/2024 Telephone [facility] [address] [facility] [address] [place] [phone] Dima Aviles MD 11/13/2024 1:45 PM CDT Office Visit [facility]iology [address] [place] [address] Dima Aviles MD Chronic diastolic congestive heart failure (HCC) (Primary Dx); History of syncope; Status post placement of implantable loop recorder; Hypertension, essential; Anxiety 11/11/2024 7:15 AM CDT Ancillary Procedure [facility] [address] [place] [phone] NICM (nonischemic cardiomyopathy) (HCC); NSVT (nonsustained ventricular tachycardia) (HCC); Syncope and collapse 09/30/2024 Orders Only [facility]iology [address] [place] [phone] Dima Aviles MD Status post placement of implantable loop recorder (Primary Dx); H/O syncope 09/30/2024 7:15 AM CDT Ancillary Procedure [facility] [address] [place] [phone] Status post placement of implantable loop recorder (Primary Dx); NICM (nonischemic cardiomyopathy) (HCC); NSVT (nonsustained ventricular tachycardia) ([facility]); Syncope and collapse from Last 3 Months Allergies Active Allergy Reactions Criticality Noted Date Comments Conj Estrog-Medroxyprogest Erick Other (See comments) Low 03/23/2015 Mouth sores Diclofenac Swelling Medium 05/17/2022 Bfjtzir-Mua-Swt Reductase Inhibitors Muscle pain Medium 06/21/2023 Sulfa [...] (10/12/2023): Medtronic LNQ11. Dx; Syncope. DOI 10/12/2023-Magno. [facility] remote. Slow transit constipation 06/21/2023 Assessment & Plan (06/21/2023 12:14 PM MANUFACTURING OPERATIONS MANAGER): Patient reports constipation probiotics help control this best patient did not tolerate Linzess Recurrent UTI (urinary tract infection) 06/21/20 Assessment & Plan (06/21/2023 12:25 PM MANUFACTURING OPERATIONS MANAGER): Patient advised me she is had a history recurrent UTI. He is seeing Dr. Jero Garland uro lot porter in the past. He is done multiple tests etiology not found. Patient is not symptomatic at this time H/O syncope 04/04/2023 Medication side effects 05/03/2022 Gastroesophageal reflux disease 04/27/2022 Assessment & Plan (06/21/2023 12:04 PM MANUFACTURING OPERATIONS MANAGER): Patient advised me on today's date 06/20/2023 [...] time Assessment & Plan (06/21/2023 12:28 PM MANUFACTURING OPERATIONS MANAGER): This is a new patient to me [...] in your mouth on an nivia like [employer] Lower carb substitutions: [employer] carries a zero [...] in much longer they will become mushy [place] and/or coconut flour instead of regular flour [...] pork rinds For yogurt, try Two Good canadian yogurt Use Danielle for recipe ideas. Type [...] 01/25/2022 Assessment & Plan (06/21/2023 12:11 PM MANUFACTURING OPERATIONS MANAGER): Patient advised colon cancer screening , not [...] (12/28/2021): Added automatically from request for surgery [id number] Impingement syndrome of left shoulder 12/28/2021 Overview (12/28/2021): Added automatically from request for surgery [id number] Biceps tendonitis on left 12/28/2021 Overview (12/28/2021): Added automatically from request for surgery [id number] Mixed hyperlipidemia 12/07/2021 Assessment & Plan (06/21/2023 12:00 PM MANUFACTURING OPERATIONS MANAGER): Patient presently on Zetia she has a history of intolerance to statin is noted in patient's locker attendant notes Dr. Kiran. 04/04/2023. I have no [...] 10/26/2021 Assessment & Plan (06/21/2023 12:15 PM MANUFACTURING OPERATIONS MANAGER): Patient presently on losartan 100 mg daily [...] - chronic, stable - has been on residential Lorazepam 1.5mg nightly, once in a while she would take an extra 1/2 tablet - not on other medications for anxiety - no coexisting depression - continue current therapy No results found for: TSH Assessment & Plan (10/26/2021 3:12 PM CDT): - chronic, stable - has been on residential Lorazepam 1-1.5mg nightly - not on other medications for anxiety - no coexisting depression - may continue current therapy Fibromyalgia 10/07/2021 Assessment & Plan (06/21/2023 12:06 PM MANUFACTURING OPERATIONS MANAGER): Patient advised me that gabapentin 300 mg [...] 10/06/2021 Assessment & Plan (06/21/2023 12:03 PM MANUFACTURING OPERATIONS MANAGER): Pain records reveal she had a syncopal episode 09/26/2021. Evaluation cardiovascular etiology noted in locker attendant notes Dr. Kiran April 04, 2023. This [...] stomach. 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 She uses a non formulary prescription recommended by a retired ear nose and throat doctor Dr. Gracia that gives her some relief. 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 Not on file Not on f [...] on file Medical Devices Implanted Type Area Information Assurance Officer Device Identifier Shelf Expiration Date Model / Serial / Lot [employer] [id number] Ringloc+ 52mm Limit Hole Fin Hip 24 Shell Acetabular - Sn/A - [id number] Implanted:Qty: 1 on 05/02/2018 by Bert Lira MD at [facility] Left: Hip [employer] [id number] 02/17/2028 [id number] / N/A / [id number] [employer] [id number] Ringloc 36mm High Wall Hip +3mm 23 Liner Acetabular Arcomxl - Sn/A - [id number] Implanted:Qty: 1 on 05/02/2018 by Bert Lira MD at [facility] Left: Hip [employer] [id number] 03/29/2023 [id number] / N/A / [id number] [employer] [id number] Echo Bi-Metric 14mm 150mm Noncollar Reduce Proximal Profile Press - Sn/A - [id number] Implanted:Qty: 1 on 05/02/2018 by Bert Lira MD at [facility] Left: Hip [employer] [id number] 12/12/2027 [id number] / N/A / [id number] [employer] 650-1057 G7 36mm Hip Head Femoral Biolox Delta Option - Sn/A - [id number] Implanted:Qty: 1 on 05/02/2018 by Bert Lira MD at [facility] Left: Hip [employer] [id number] 10/21/2027 650-1057 / N/A / [id number] [employer] 650-1068 G7 Type 1 Hip +6mm Offset Taper Sleeve Centering Titanium Biolox - Sn/A - [id number] Implanted:Qty: 1 on 05/02/2018 by Bert Lira MD at [facility] Left: Hip [employer] [id number] 11/18/2027 650-1068 / N/A / [id number] Procedures Procedure Name Priority Date/Time Associated Diagnosis Comments TRANSTHORACIC ECHO (TTE) COMPLETE W DOPPLER/CF WO CONTRAST Routine 12/18/2024 3:01 PM CDT Chronic diastolic congestive heart failure (HCC) ELECTROCARDIOGRAM REPORT Routine 11/13/2024 History of syncope Status post placement of implantable loop recorder DEVICE CHECK - REMOTE Routine 09/30/2024 2:15 PM CDT NICM (nonischemic cardiomyopathy) (HCC) NSVT (nonsustained ventricular tachycardia) (HCC) Syncope and collapse STOOL DNA COLOGUARD Routine 07/13/2023 9:00 AM MANUFACTURING OPERATIONS MANAGER Colon cancer screening DEXA AXIAL SKELETON BONE DENSITY 1 OR MORE SITES Schedule Routine, Read Routine (OP Routine) 03/17/2022 11:33 AM CDT Postmenopausal HEPATITIS C ANTIBODY Routine 12/07/2021 11:27 AM CDT Need for hepatitis C screening test from Last 3 Months or Most Recently Relevant to Health Maintenance Results * TRANSTHORACIC ECHO (TTE) COMPLETE W DOPPLER/CF WO CONTRAST (12/18/2024 3:01 PM CDT) EF Mod BP 71 % CONS SCIMAGE Anatomical Region Laterality Modality Ultrasound 12/18/2024 1:51 PM CDT Narrative 12/18/2024 3:[address] [facility] Medical Group Cardiology [address] [facility] [address], [place] [address] [address] [facility] [address], [place] [address] P:[phone] P:[phone] Echocardiographic Report Patient Name: ANNAMARIA GRANADO A : 1950 Study Date: 12/18/2024 1:51:45 PM Gender: F Tech: DLS Location: [facility] Provider: DIMA AVILES Height(Cm): 178 BSA: 2.21 Weight(Kg): 98.4 Heart Rate: 60 BP: 128 / 78 Quality: Good Order Provider: DIMA AVILES PROCEDURES: Echocardiographic Report: Transthoracic echocardiogram with complete 2D, M-Mode, and color Doppler examination. With Strain Analysis. INDICATIONS: I50.32 Chronic diastolic (congestive) heart failure. MEASUREMENTS: 2D/MM Value Range Doppler Value Range EF Mod BP 71 % [ 54 - 74 ] LOGAN Vmax 2.22 cm2 [ 2.00 - 4.00 ] LVIDd 2D 3.84 cm [ 3.80 - 5.20 ] AV Mean PG 3 mmHg LVIDs 2D 2.32 cm [ 2.20 - 3.50 ] AV Peak Yaya 1.22 m/s [ 1.00 - 1.70 ] LVPWd 2D 1.11 cm [ 0.60 - 0.90 ] AV Peak PG 6 mmHg IVSd 2D 1.22 cm [ 0.60 - 0.90 ] AV VTI 30.43 cm LA Volume Index 14 cc/m2 [ 16 - 34 ] LVOT Diam 2.00 cm [ 1.70 - 2.10 ] LVOT Peak Yaya 0.87 m/s [ 0.70 - 1.10 ] LVOT VTI 26.00 cm MV E Peak Yaya 0.78 m/s [ 0.60 - 1.30 ] MV A Peak Yaya 0.70 m/s [ 1.00 - 1.20 ] MV Decel Time 172 msec [ 104 - 258 ] PV Peak Yyaa 0.57 m/s [ 0.40 - 0.80 ] Lateral E` 0.07 m/s [ 0.10 - 0.15 ] E` 0.07 m/s E/E` 12 2D/MM Value Range Doppler Value Range - FINDINGS: Interpretation Site: Exam was interpreted at [facility]. Left Ventricle: Normal left ventricular size. Mild concentric left ventricular hypertrophy. Normal global left ventricular systolic function. Normal left ventricular diastolic function. Ejection fraction is measured at 71 %. Global Longitudinal Strain is -21 %. Right Ventricle: Normal right ventricular size. Normal right ventricular systolic function. Left Atrium: The left atrium is normal in size. Right Atrium: The right atrium is normal in size. Atrial Septum: Normal atrial septum. Mitral Valve: Normal appearance of the mitral valve. Trivial regurgitation of the mitral valve. Aortic Valve: Normal appearance of the aortic valve. No evidence of hemodynamically significant aortic stenosis by Doppler. Tricuspid Valve: Normal appearance of the tricuspid valve. Right ventricular systolic pressure could not be estimated due to inadequate visualization of the tricuspid regurgitation jet. Pulmonic Valve: Normal appearance of the pulmonic valve. Mild pulmonic regurgitation. Pericardium: Normal pericardium with no significant pericardial effusion. There is an anterior echo free space consistent with epicardial fat pad. Aorta: Normal aortic root. IVC: Normal size and normal respiratory collapse consistent with normal right atrial pressure (<5 mmHg). CONCLUSIONS: Normal left ventricular size. Mild left ventricular hypertrophy. Normal LV systolic and diastolic function. Ejection fraction is measured at 71 %. Global Longitudinal Strain is -21 %. Normal right ventricular size and systolic function. Normal appearance of the mitral valve. No significant MR. Normal appearance of the aortic valve. No evidence of hemodynamically significant aortic stenosis by Doppler. Right ventricular systolic pressure could not be estimated due to inadequate visualization of the tricuspid regurgitation jet. Electronically Signed By: Dima Aviles MD, [facility] 12/18/2024 3:15:42 PM CDT Procedure Note Dima Aviles MD - 12/18/2024 [facility] Medical Group Cardiology [address] [facility] [address], [place] [address] [address] [facility] [address], [place] [address] P:[phone] P:[phone] Echocardiographic Report Patient Name: ANNAMARIA GRANADO A : 1950 Study Date: 12/18/2024 1:51:45 PM Gender: F Tech: [facility] Location: [facility] Provider: DIMA AVILES Height(Cm): 178 BSA: 2.21 Weight(Kg): 98.4 Heart Rate: 60 BP: 128 / 78 Quality: Good Order Provider: DIMA AVILES PROCEDURES: Echocardiographic Report: Transthoracic echocardiogram with complete 2D, M-Mode, and color Dopplerexamination. With Strain Analysis. INDICATIONS: I50.32 Chronic diastolic (congestive) heart failure. MEASUREMENTS: 2D/MM Value Range Doppler ValueRange EF Mod BP 71 % [ 54 - 74 ] LOGAN Vmax 2.22cm2 [ 2.00 - 4.00 ] LVIDd 2D 3.84 cm [ 3.80 - 5.20 ] AV Mean PG 3mmHg LVIDs 2D 2.32 cm [ 2.20 - 3.50 ] AV Peak Yaya 1.22m/s [ 1.00 - 1.70 ] LVPWd 2D 1.11 cm [ 0.60 - 0.90 ] AV Peak PG 6mmHg IVSd 2D 1.22 cm [ 0.60 - 0.90 ] AV VTI 30.43cm LA Volume Index 14 cc/m2 [ 16 - 34 ] LVOT Diam 2.00 cm[ 1.70 - 2.10 ] LVOT Peak Yaya 0.87 m/s [ 0.70 - 1.10 ] LVOT VTI 26.00 cm MV E Peak Yaya 0.78 m/s [ 0.60 - 1.30 ] MV A Peak Yaya 0.70 m/s [ 1.00 - 1.20 ] MV Decel Time 172 msec [ 104 - 258 ] PV Peak Yaya 0.57 m/s [ 0.40 - 0.80 ] Lateral E` 0.07 m/s [ 0.10 - 0.15 ] E` 0.07 m/s E/E` 12 2D/MM Value Range Doppler ValueRange - FINDINGS: Interpretation Site: Exam was interpreted at [facility]. Left Ventricle: Normal left ventricular size. Mild concentric left ventricularhypertrophy. Normal global left ventricular systolic function. Normal left ventricular diastolicfunction. Ejection fraction is measured at 71 %. Global Longitudinal Strain is -21 %. Right Ventricle: Normal right ventricular size. Normal right ventricular systolicfunction. Left Atrium: The left atrium is normal in size. Right Atrium: The right atrium is normal in size. Atrial Septum: Normal atrial septum. Mitral Valve: Normal appearance of the mitral valve. Trivial regurgitation of the mitralvalve. Aortic Valve: Normal appearance of the aortic valve. No evidence of hemodynamicallysignificant aortic stenosis by Doppler. Tricuspid Valve: Normal appearance of the tricuspid valve. Right ventricular systolicpressure could not be estimated due to inadequate visualization of the tricuspidregurgitation jet. Pulmonic Valve: Normal appearance of the pulmonic valve. Mild pulmonic regurgitation. Pericardium: Normal pericardium with no significant pericardial effusion. There is ananterior echo free space consistent with epicardial fat pad. Aorta: Normal aortic root. IVC: Normal size and normal respiratory collapse consistent with normal rightatrial pressure (<5 mmHg). CONCLUSIONS: Normal left ventricular size. Mild left ventricular hypertrophy. Normal LVsystolic and diastolic function. Ejection fraction is measured at 71 %. GlobalLongitudinal Strain is -21 %. Normal right ventricular size and systolic function. Normal appearance of the mitral valve. No significant MR. Normal appearance of the aortic valve. No evidence of hemodynamicallysignificant aortic stenosis by Doppler. Right ventricular systolic pressure could not be estimated due toinadequate visualization of the tricuspid regurgitation jet. Electronically Signed By: Dima Aviles MD, [facility] 12/18/2024 3:15:42 PM CDT Dima Aviles MD CV ECHO PROCEDURES Final Result * Electrocardiogram Report (11/13/2024) 11/13/2024 Dima Aviles MD ECG ORDERABLES Edited Result - Final * DEVICE CHECK - REMOTE (09/30/2024 2:15 PM CDT) Anatomical Region Laterality Modality Other Narrative 10/07/2024 7:35 PM CDT Medtronic LNQ11. Dx; Syncope. DOI 10/12/2023-Moran. [facility] remote. Routine ILR remote. Normal device function. Battery function-OK. Presenting rhythm: NSR Medications: Losartan 100 mg Counters since last scheduled transmission on 08/20/24. No auto or patient recorded episodes noted. See scanned report. [facility] remote f/u 11/11/24 sign. Josef Biggs, RN Dima Aviles MD CV CARDIAC SERVICES PROCEDURES F inal Result * Stool DNA - Cologuard (07/13/2023 9:00 AM MANUFACTURING OPERATIONS MANAGER) Pathologist [facility] Stool DNA - Cologuard Negative Negative Generate (CLIA #:[id number]) Comment: NEGATIVE TEST RESULT. A negative Cologuard [...] (Daryn Leahy al, N Engl J Med 2014;370(14):5191-4505) The normal value (reference range) for this assay is negative. COLOGUARD RE-SCREENING RECOMMENDATION: Periodic colorectal cancer screening is an important part of preventive healthcare for asymptomatic individuals at average risk for colorectal cancer. Following a negative Cologuard result, the [place] Cancer Society and U.S. Multi-Society Task Force screening guidelines recommend a Cologuard re-screening interval of 3 years. References: [employer] Society Guideline for Colorectal Cancer Screening: https://www.cancer.org/cancer/ooumf-trzaqj-uqcffx/zqybzncxc-nxmrooygg-avteeqx/ac s-rec ommendations.html.; Sam DK, Yuniel OTERO, Cl PenaK, Colorectal Cancer Screening: Recommendations for Physicians and Patients from the U.S. Multi-Society Task Force on Colorectal Cancer Screening , Am J Gastroenterology 2017; 112:8134-0834. TEST DESCRIPTION: Composite algorithmic analysis of stool [...] (Daryn Leahy al, N Engl J Med 2014;370(14):1681-5881.) Cologuard may produce a false negative or false positive result (no colorectal cancer or precancerous polyp present at colonoscopy follow up). A negative Cologuard test result does not guarantee the absence of CRC or advanced adenoma (pre-cancer). The current Cologuard screening interval is every 3 years. ([place] Cancer Society and U.S. Multi-Society Task Force). Cologuard performance data in a 10,000 patient pivotal study using colonoscopy as the reference method can be accessed at the following location: www.[employer]results. Additional description of the Cologuard test process, warnings and precautions can be found at [email or web address]. Stool 07/13/2023 9:00 AM MANUFACTURING OPERATIONS MANAGER 07/14/2023 1:49 PM MANUFACTURING OPERATIONS MANAGER Alexander Pollard MD LAB BODY FLUIDS AND STOOLS ORDERABLES Final Result Myster[facility] (CLIA #:[id number]) [address] [place] [address] * Dexa Axial Skeleton Bone Density 1 or 2 Site (03/17/2022 11:33 AM CDT) Anatomical Region Laterality Modality Body N/A Other 03/17/2022 7:59 PM CDT Narrative 03/17/2022 8:05 PM CDT EXAM DESCRIPTION: DEXA AXIAL SKELETON BONE DENSITY 1 OR MORE SITES REASON FOR STUDY: 71 y/o year old F with given history of screening. Postmenopausal Information Assurance Officer/Model: [employer]ites SL (S/N [id number]) CLINICAL INFORMATION: Current height: 70 inches Maximum [...] Isaac Hu M.D. MF: ALAYNA Report ID: [id number] Reading Location: [place] [address] Procedure Note Isaac Hu MD - 03/17/2022 EXAM DESCRIPTION: DEXA AXIAL SKELETON BONE DENSITY 1 OR MORE SITES REASON FOR STUDY: 71 y/o year old F with given history ofscreening. Postmenopausal Information Assurance Officer/Model: TPI Composites SL (S/N [id number]) CLINICAL INFORMATION: Current height: 70 inches Maximum [...] Isaac Hu M.D. MF: ALAYNA Report ID: [id number] Reading Location: [place] [address] Gregory Isaac Parks MD IM DXA PROCEDURES Cristina l Result * Hepatitis C antibody (12/07/2021 11:27 AM CDT) Pathologist [facility] Hep C Ab Nonreactive Nonreactive [place] DALY [...] RAL ORDERABLES [place] - [place] [id number] [address] Department [place] [address] from Last 3 Months or Most Recently Relevant to Health Maintenance Insurance U[employer] MEDICARE ADVANTAGE [facility] MEDICARE ADVANTAGE [facility] MED[employer]ARE ADVANTAGE Advance Directives For more information, please contact: [phone] * Full Code (Latest Code Status on File) Date Activated Date Inactivated Comments 10/06/2021 12:51 PM 10/07/2021 6:51 PM * Full Code Date Activated Date Inactivated Comments 05/02/2018 11:21 AM 05/03/2018 3:58 PM Care Teams Business Analyst Manager Relationship Specialty Start Date End Date Theo Li MD PCP - General Family Practice 12/06/23 Ruth Gomez MD 12/06/17 Morales Guerrero MD Consulting Physician Cardiovascular Disease 10/07/21
--- OUTSIDE RECORDS SUMMARY | 2024-12-26 12:21 | XMS_ITS | Clinical Summary ---
Author Organization [facility] Address [address] [place] [address] Care Team Providers Care Shift Manager Name Role Phone Ruth Gomez MD Primary Care Provider [phone] Social History Tobacco Use Types Packs/Day Years [...] this topic Insurance MEDICARE [employer] Care Teams Shift Manager Relationship Specialty Start Date End Date Ruth Gomez MD PCP - General FAMILY PRACTICE 03/17/20
--- OUTSIDE RECORDS SUMMARY | 2024-12-26 12:21 | XMS_ITS | Clinical Summary ---
Author Organization [facility] Address [address] [place] [address] Phone Care Team Providers Care Labor And Employment Paralegal Name Role Phone Theo Li MD Primary Care Provider [phone] Allergies Active Allergy Reactions Criticality Noted Date [...] Comments Blood Pressure 146/86 06/24/2024 10:04 AM HOOKER OPERATOR Pulse 71 06/24/2024 10:04 AM HOOKER OPERATOR Temperature 36.5 C (97.7 F) 06/24/2024 10:04 AM HOOKER OPERATOR Respiratory Rate 16 06/24/2024 10:04 AM HOOKER OPERATOR Oxygen Saturation 100% 06/24/2024 10:04 AM HOOKER OPERATOR Inhaled Oxygen Concentration - - Weight 97 kg (213 lb 12.8 oz) 06/24/2024 10:04 A M HOOKER OPERATOR Height 177.8 cm (5' 10) 06/24/2024 10:04 AM HOOKER OPERATOR Body Mass Index 30.68 06/24/2024 10:04 AM HOOKER OPERATOR Plan of Treatment Health Maintenance Due Date Last Done Comments Hepatitis C Virus (HCV) Screening 1950 Mammogram 1950 TdaP Immunization 1950 Cologuard 1996 Colonoscopy 1996 Colorectal Cancer Screening 1996 Immunochemical Fecal Occult Blood 1996 Pneumococcal Immunization (5 0+ years) (1 of 1 - PCV) 2001 Zoster Immunization (1 of 2) 2001 SARS-COV-2 Immunization (1 - season) 2024 DEXA Bone Density 03/17/2024 03/17/2022 Influenza Immunization (Seas on Ended) 2025 Respiratory Syncytial Virus (RSV) Immunization (Adult) (1 - 1-dose 75+ series) 2026 Hepatitis B Immunization Aged Out No longer eligible based on patient's age to complete this topic Human Papillomavirus (HPV) Immunization Aged Out No longer eligible b ased on patient's age to complete this topic Meningococcal Immunization (ACWY) Aged Out No longer eligible based on patient's age to complete this topic Rotavirus Immunization Aged Out No lo nger eligible based on patient's age to complete this topic Insurance MEDICARE C [facility] [place] [id number] Care Teams Labor And Employment Paralegal Relationship Specialty Start Date End Date Theo Li MD [address] [place] [address] PCP - General Family Medicine 02/12/24
--- OUTSIDE RECORDS SUMMARY | 2024-12-26 12:21 | XMS_ITS | Clinical Summary ---
Author Organization [facility] Address [address] [place] [address] Care Team Providers Care Programming Internship Name Role Phone Ruth Gomez MD Unavailable [phone] Morales Guerrero MD Unavailable [phone] Theo Li MD Primary Care Provider [phone] Allergies Active Allergy Reactions Criticality Noted Date Comments Conj Estrog-Medroxyprogest Erick Other (See comments) Low 03/23/2015 Mouth sores Diclofenac Swelling Medium 05/17/2022 Dqvrfoc-Sxj-Xfq Reductase Inhibitors Muscle pain Medium 06/21/2023 Sulfa [...] 06/21/2023 Assessment & Plan (06/21/2023 12:14 PM INSPECTOR MULTIFOCAL LENS): Patient reports constipation probiotics help control this best patient did not tolerate Linzess Recurrent UTI (urinary tract infection) 06/21/20 Assessment & Plan (06/21/2023 12:25 PM INSPECTOR MULTIFOCAL LENS): Patient advised me she is had a history recurrent UTI. 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 He is done multiple tests etiology not found. Patient is not symptomatic at this time H/O syncope 04/04/2023 Medication side effects 05/03/2022 Gastroesophageal reflux disease 04/27/2022 Assessment & Plan (06/21/2023 12:04 PM INSPECTOR MULTIFOCAL LENS): Patient advised me on today's date 06/20/2023 [...] time Assessment & Plan (06/21/2023 12:28 PM INSPECTOR MULTIFOCAL LENS): This is a new patient to me [...] in your mouth on an nivia like Storrz Lower carb substitutions: Huber carries a zero [...] in much longer they will become mushy [place] and/or coconut flour instead of regular flour [...] pork rinds For yogurt, try Two Good [place]i yogurt Use Danielle for recipe ideas. Type [...] 01/25/2022 Assessment & Plan (06/21/2023 12:11 PM INSPECTOR MULTIFOCAL LENS): Patient advised colon cancer screening , not [...] (12/28/2021): Added automatically from request for surgery [id number] Impingement syndrome of left shoulder 12/28/2021 Overview (12/28/2021): Added automatically from request for surgery [id number] Biceps tendonitis on left 12/28/2021 Overview (12/28/2021): Added automatically from request for surgery [id number] Mixed hyperlipidemia 12/07/2021 Assessment & Plan (06/21/2023 12:00 PM INSPECTOR MULTIFOCAL LENS): Patient presently on Zetia she has a history of intolerance to statin is noted in patient's apple checker notes Dr. Kiran. 04/04/2023. I have no [...] 10/26/2021 Assessment & Plan (06/21/2023 12:15 PM INSPECTOR MULTIFOCAL LENS): Patient presently on losartan 100 mg daily [...] 10/07/2021 Assessment & Plan (06/21/2023 12:06 PM INSPECTOR MULTIFOCAL LENS): Patient advised me that gabapentin 300 mg [...] 10/06/2021 Assessment & Plan (06/21/2023 12:03 PM INSPECTOR MULTIFOCAL LENS): Pain records reveal she had a syncopal episode 09/26/2021. Evaluation cardiovascular etiology noted in apple checker notes Dr. Kiran April 04, 2023. This [...] stomach. 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 Overview (12/08/2021): 11/28 - Vitamin 12 was high so recommending cutting intake by half Assessment & Plan (06/21/2023 12:09 PM INSPECTOR MULTIFOCAL LENS): Patient's has had this problem 20+ years [...] well Assessment & Plan (06/07/2021 1:22 PM INSPECTOR MULTIFOCAL LENS): Start multi-vitamin Folic Acid 800 mg () [...] Department Care Team Description 12/23/2024 Results Follow-Up [facility] [address] [place] [address] [place] [phone] Dima Aviles MD Transthoracic Echo (TTE) Complete W Doppler/CF 12/20/2024 Telephone [facility] [address] [place] [address] [place] [phone] Dima Aviles MD 12/19/2024 Orders Only [facility] [address] [place] [address] [address] [place] [phone] Alexander Pollard MD 12/18/2024 2:00 PM CDT Ancillary Procedure [facility] [address] [place] [address] [place] [phone] Chronic diastolic congestive heart failure (HCC) 12/12/2024 Telephone [facility] [address] [place] [phone] Dima Aviles MD 11/13/2024 1:45 PM CDT Office Visit [facility] [address] [place] [phone] Dima Aviles MD Chronic diastolic congestive heart failure (HCC) (Primary Dx); History of syncope; Status post placement of implantable loop recorder; Hypertension, essential; Anxiety 11/11/2024 7:15 AM CDT Ancillary Procedure [facility] [address] [place] [address] [place] [phone] NICM (nonischemic cardiomyopathy) ([facility]); NSVT (nonsustained ventricular tachycardia) ([facility]); Syncope and collapse 09/30/2024 7:15 AM CDT Ancillary Procedure [address] [place] [phone] Status post placement of implantable loop recorder (Primary Dx); NICM (nonischemic cardiomyopathy) (HCC); NSVT (nonsustained ventricular tachycardia) (HCC); Syncope and collapse 09/30/2024 Orders Only [facility] [address] [place] [address] [place] [phone] Dima Aviles MD Status post placement [...] on file Legal Sex Female 12:58 PM INSPECTOR MULTIFOCAL LENS Gender Identity Not on file Sexual Orientation Not on file 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 Job End Date 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 Not on file Not on f [...] Discontinued 07/13/2023 Medical Devices Implanted Type Area Airline Pilot Device Identifier Shelf Expiration Date Model / Serial / Lot [employer] [id number] Ringloc+ 52mm Limit Hole Fin Hip 24 Shell Acetabular - Sn/A - [id number] Implanted:Qty: 1 on 05/02/2018 by Bert Lira MD at [facility] Left: Hip [employer] [id number] 02/17/2028 [id number] / N/A / [id number] [employer] [id number] Ringloc 36mm High Wall Hip +3mm 23 Liner Acetabular Arcomxl - Sn/A - [id number] Implanted:Qty: 1 on 05/02/2018 by Bert Lira MD at [facility] Left: Hip [employer] [id number] 03/29/2023 [id number] / N/A / [id number] [employer] [id number] Echo Bi-Metric 14mm 150mm Noncollar Reduce Proximal Profile Press - Sn/A - [id number] Implanted:Qty: 1 on 05/02/2018 by Bert Lira MD at [facility] Left: Hip [employer] [id number] 12/12/2027 [id number] / N/A / [id number] [employer] 650-1057 G7 36mm Hip Head Femoral Biolox Delta Option - Sn/A - [id number] Implanted:Qty: 1 on 05/02/2018 by Bert Lira MD at [facility] Left: Hip [employer] [id number] 10/21/2027 650-1057 / N/A / [id number] [employer] 650-1068 G7 Type 1 Hip +6mm Offset Taper Sleeve Centering Titanium Biolox - Sn/A - [id number] Implanted:Qty: 1 on 05/02/2018 by Bert Lira MD at [facility] Left: Hip [employer] [id number] 11/18/2027 650-1068 / N/A / [id number] Procedures Procedure Name Priority Date/Time Associated Diagnosis [...] STOOL DNA COLOGUARD Routine 07/13/2023 9:00 AM INSPECTOR MULTIFOCAL LENS Colon cancer screening DEXA AXIAL SKELETON BONE [...] PM CDT Narrative 12/18/2024 3:16 PM CDT [facility] [address] [facility] [address], [place] [address] [address] [facility] [address], [place] [address] P:[phone] P:[phone] Echocardiographic Report Patient Name: ANNAMARIA GRANADO A : 1950 Study Date: 12/18/2024 1:51:45 PM Gender: F Tech: GINNY Location: [place] Ref Provider: DIMA AVILES Height(Cm): 178 BSA: 2.21 [...] FINDINGS: Interpretation Site: Exam was interpreted at [facility]. Left Ventricle: Normal left ventricular size. Mild [...] jet. Electronically Signed By: Dima Aviles MD, [facility] 12/18/2024 3:15:42 PM CDT Procedure Note Dima Aviles MD - 12/18/2024 [facility] [address] [facility] [address], [place] [address] [address] [facility] [address], [place] [address] P:[phone] P:[phone] Echocardiographic Report Patient Name: ANNAMARIA GRANADO A : 1950 Study Date: 12/18/2024 1:51:45 PM Gender: F Tech: [facility] Location: [facility] Provider: DIMA AVILES Height(Cm): 178 BSA: 2.21 [...] FINDINGS: Interpretation Site: Exam was interpreted at [facility]. Left Ventricle: Normal left ventricular size. Mild [...] jet. Electronically Signed By: Dima Aviles MD, [facility] 12/18/2024 3:15:42 PM CDT Dima Aviles MD CV ECHO PROCEDURES Final Result * Electrocardiogram Report (11/13/2024) 11/13/2024 Result [facility] Dima Aviles MD ECG ORDERABLES Edited Result - Final * DEVICE CHECK - REMOTE (09/30/2024 2:15 PM CDT) Anatomical Region Laterality Modality Other Narrative 10/07/2024 7:35 PM CDT [employer] [id number]. Dx; Syncope. DOI 10/12/2023-[place]. [facility] remote. Routine ILR remote. Normal device function. Battery function-OK. Presenting rhythm: NSR Medications: Losartan 100 mg Counters since last scheduled transmission on 08/20/24. No auto or patient recorded episodes noted. See scanned report. [facility] remote f/u 11/11/24 sign. Josef Biggs RN Dima Aviles MD CV CARDIAC SERVICES PROCEDURES F inal Result * Stool DNA - Cologuard (07/13/2023 9:00 AM INSPECTOR MULTIFOCAL LENS) Stool DNA - Cologuard Negative Negative [employer] (CLIA #:[id number]) Comment: NEGATIVE TEST RESULT. A negative Cologuard [...] (Daryn Leahy al, N Engl J Med 2014;370(14):2289-9917) The normal value (reference range) for this assay is negative. COLOGUARD RE-SCREENING RECOMMENDATION: Periodic colorectal cancer screening is an important part of preventive healthcare for asymptomatic individuals at average risk for colorectal cancer. Following a negative Cologuard result, the [place] Cancer Society and U.S. Multi-Society Task Force screening guidelines recommend a Cologuard re-screening interval of 3 years. References: [place] Cancer Society Guideline for Colorectal Cancer Screening: https://www.cancer.org/cancer/ffbfw-gmhlwj-qemlyj/kfdhyqspr-qiivssiwf-xkqgmhq/ac s-rec ommendations.html.; Sam DK, Yuniel CR, Cl PenaK, Colorectal Cancer Screening: Recommendations for Physicians and Patients from the U.S. Multi-Society Task Force on Colorectal Cancer Screening , Am J Gastroenterology 2017; 112:1028-4886. TEST DESCRIPTION: Composite algorithmic analysis of stool [...] (Daryn Leahy al, N Engl J Med 2014;370(14):8736-7888.) Cologuard may produce a false negative or false positive result (no colorectal cancer or precancerous polyp present at colonoscopy follow up). A negative Cologuard test result does not guarantee the absence of CRC or advanced adenoma (pre-cancer). The current Cologuard screening interval is every 3 years. ([place] Cancer Society and U.S. Multi-Society Task Force). Cologuard performance data in a 10,000 patient pivotal study using colonoscopy as the reference method can be accessed at the following location: www.[employer]ight.PiAuto/results. Additional description of the Cologuard test process, warnings and precautions can be found at www.cologuard.com. Stool 07/13/2023 9:00 AM INSPECTOR MULTIFOCAL LENS 07/14/2023 1:49 PM INSPECTOR MULTIFOCAL LENS Alexander Pollard MD LAB BODY FLUIDS AND STOOLS ORDERABLES Final Result [facility] (CLIA #:[id number]) [place] [address] [place] [address] * Dexa Axial Skeleton Bone Density 1 or 2 Site (03/17/2022 11:33 AM CDT) Anatomical Region Laterality Modality Body N/A Other 03/17/2022 7:59 PM CDT Narrative 03/17/2022 8:05 PM CDT EXAM DESCRIPTION: DEXA AXIAL SKELETON BONE DENSITY 1 OR MORE SITES REASON FOR STUDY: 71 y/o year old F with given history of screening. Postmenopausal Airline Pilot/Model: [employer] Discovery SL (S/N [id number]) CLINICAL INFORMATION: Current height: 70 inches Maximum [...] Isaac Hu M.D. MF: ALAYNA Report ID: [id number] Reading Location: [place] [address] Procedure Note Isaac Hu MD - 03/17/2022 EXAM DESCRIPTION: DEXA AXIAL SKELETON BONE DENSITY 1 OR MORE SITES REASON FOR STUDY: 71 y/o year old F with given history ofscreening. Postmenopausal Airline Pilot/Model: [employer] Discovery SL (S/N [id number]) CLINICAL INFORMATION: Current height: 70 inches Maximum [...] Electronically signed by Isaac Hu M.D. MF: MF Report ID: [id number] Reading Location: [id number] Gregory Parks MD IMG DXA PROCEDURES Cristina [...] AM CDT 12/07/2021 8:29 PM CDT Gregory Praks MD LAB MICROBIOLOGY - GENE RAL ORDERABLES Edited Result - Final [facility] [id number] Department [place] [address] from Last 3 Months or Most Recently Relevant to Health Maintenance Insurance [facility] MEDICARE ADVANTAGE [facility] MEDICARE ADVANTAGE [facility] MEDICARE ADVANTAGE [place] [id number] Advance Directives For more information, please contact: [phone] * Full Code (Latest Code Status on File) Date Activated Date Inactivated Comments 10/06/2021 12:51 PM 10/07/2021 6:51 PM * Full Code Date Activated Date Inactivated Comments 05/02/2018 11:21 AM 05/03/2018 3:58 PM Care Teams Programming Internship Relationship Specialty Start Date End Date Theo Li MD PCP - General Family Practice 12/06/23 Ruth Gomez MD 12/06/17 Morales Guerrero MD Consulting Physician Cardiovascular Disease 10/07/21
--- OUTSIDE RECORDS SUMMARY | 2024-12-26 12:21 | XMS_ITS | Clinical Summary ---
Author Organization [facility] Address [address] [place] [address] Phone Care Team Providers Care Violin Maker Hand Name Role Phone Unavailable Primary Care Provider [...] (1 - 1-dose 75+ series) 2026 Insurance [facility]
--- OUTSIDE RECORDS SUMMARY | 2024-12-26 12:21 | XMS_ITS | CONTINUITY OF CARE DOCUMENT ---
Author Name neris cordon Address Unknown Organization [facility] Address [address] [place] [address] [address] [place] [address] Phone [phone] Care Team Providers Care Assistant Professor Of Biology Name Role Phone neris cordon Unavailable Unavailable
[2024-12-26 20:03] LABS: Sodium 133 mmol/L (137-145)
[2024-12-26 20:04] LABS: Anion Gap 10 mmol/L (4-12); Blood Urea Nitrogen 27 mg/dL (7-17); Calcium 9.7 mg/dL (8.4-10.2); Carbon Dioxide 27 mmol/L (22-30); Chloride 96 mmol/L (98-107); Estimated Glomerular Filt Rate 48; Glucose 81 mg/dL (65-110); Potassium 3.9 mmol/L (3.4-5.0)
== END 2024-12-26 11:33 | disposition home or self-care (01) ==
LOC: ANHBWCLAB 11:34
PROVIDERS: PCP Family Medicine; Visit Provider Internal Medicine Cardiovascular Disease
DX: I10 Essential (primary) hypertension (principal)
CPT/HCPCS: 36415; 80048

== ENCOUNTER 2025-02-06 11:31 | Outpatient (CLI) | payer MEDICARE, SELFPAY ==
--- NOTE | ~2025-02-06 | XR_ITS ---
AP view of the pelvis and AP and lateral views of the right hip Clinical history: Pain Findings: No acute fracture or dislocation is seen. There is minimal right hip joint degenerative rach nge. Left hip arthroplasty in place. Soft tissues are unremarkable. Impression: Minimal degenerative change of the right hip joint. Left hip arthroplasty. Reviewed, dictated and finalized at location . Impression: Minimal degenerative change of the right hip joint. Left hip arthroplasty.
== END 2025-02-06 11:32 | disposition home or self-care (01) ==
PROVIDERS: PCP Family Medicine; Visit Provider Anesthesiology Pain Medicine
DX: M25.559 Pain in unspecified hip (principal); R53.83 Other fatigue; R55 Syncope and collapse; J45.909 Unspecified asthma, uncomplicated; Z00.00 Encounter for general adult medical examination without abnormal findings
CPT/HCPCS: 73502

== ENCOUNTER 2025-04-09 09:07 | Emergency (ER) | payer MEDICARE, SELFPAY ==
[2025-04-09 09:11] VITALS: BP 181/74; PULSE 70; RESP 16; TEMP 36.1; O2SAT 98
--- OUTSIDE RECORDS SUMMARY | 2025-04-09 09:33 | XMS_ITS | Clinical Summary ---
Author Organization [facility] Address [address] [place] [address] Phone Care Team Providers Care Director Medical Affairs Name Role Phone Unavailable Primary Care Provider [...] completed) OSTEOPOROSIS SCREENING 2016 INFLUENZA VACCINE (#1) 2025 RSV VACCINE (60+ or ) (1 - 1-dose 75+ series) 2026 Insurance [facility] OPTIONS PPO [id number] [facility]
--- OUTSIDE RECORDS SUMMARY | 2025-04-09 09:33 | XMS_ITS | Clinical Summary ---
Author Organization [facility] Address [address] [place] [address] Care Team Providers Care Florist Name Role Phone Ruth Gomez MD Primary Care Provider [phone] Social History Tobacco Use Types Packs/Day Years [...] COVID-19 Vaccine ( - 2023-2 5 season) 2025 RSV Immunization or 60+ Years (1 - [...] age to complete this topic Insurance MEDICARE [employer] Care Teams Florist Relationship Specialty Start Date End Date Ruth Gomez MD PCP - General FAMILY PRACTICE 03/17/20
--- OUTSIDE RECORDS SUMMARY | 2025-04-09 09:33 | XMS_ITS | Clinical Summary ---
Author Organization [facility] Address [address] [place] [address] Care Team Providers Care Auto Glass Installer Name Role Phone Ruth Gomez MD Unavailable [phone] LuMorales perez MD Unavailable [phone] Theo Li MD Primary Care Provider [phone] Allergies Active Allergy Reactions Criticality Noted Date Comments Conj Estrog-Medroxyprogest Erick Other (See comments) Low 03/23/2015 Mouth sores Diclofenac Swelling Medium 05/17/2022 Hrcilfu-Rcf-Adf Reductase Inhibitors Muscle pain Medium 06/21/2023 Sulfa (Sulfonamide Antibiotics) Rash Medium 12/29/2016 Sulfamethoxazole-Trimethopr im Itching Low 03/23/2015 Unclassified Drug Other (See comments) High 05/21/20 21 Medications ibuprofen (ADVIL,MOTRIN) 200 mg tab/cap Take [...] total) by mouth daily 11/05/19 25 Active empagliflozin (JARDIANCE) 10 mg tablet Take 1 tablet (10 mg total) by mouth daily 30 tablet 11 11/14/19 25 Active dicyclomine (BENTYL) 10 mg capsule 12/11/19 25 Active semaglutide (WEGOVY) 0.25 mg/0.5 mL auto-injectorInd ications:Weight Loss Management for Obese Patient (BMI >= 30) Inject 0.25 mg under the skin every 7 days 2 mL 03/12/20 25 Active metoprolol XL (TOPROL-XL) 25 mg extended release tablet Take 1 tablet (25 mg total) by mouth daily 10/31/19 25 025 Discontin ued(Alter tessa therapy) Active Problems Problem Noted Date Diagnosed Date Visit for wound check 10/19/2023 Status post placement of implantable loop record er 10/12/2023 Overview (10/12/2023): Medtronic LNQ11. Dx; Syncope. DOI 10/12/2023-Magno. Talya remote. Slow transit constipation 06/21/2023 Assessment & Plan (06/21/2023 12:14 PM MICROARRAY SPECIALIST): Patient reports constipation probiotics help control this best patient did not tolerate Linzess Recurrent UTI (urinary tract infection) 06/21/20 23 Assessment & Plan (06/21/2023 12:25 PM MICROARRAY SPECIALIST): Patient advised me she is had a history recurrent UTI. He is seeing Dr. Jero Garland uro legal compliance officer in the past. He is done multiple tests etiology not found. Patient is not symptomatic at this time H/O syncope 04/04/2023 Medication side effects 05/03/2022 Gastroesophageal reflux disease 04/27/2022 Assessment & Plan (06/21/2023 12:04 PM MICROARRAY SPECIALIST): Patient advised me on today's date 06/20/2023 [...] time Assessment & Plan (06/21/2023 12:28 PM MICROARRAY SPECIALIST): This is a new patient to me [...] in your mouth on an nivia like [employer] Lower carb substitutions: [employer] carries a zero [...] in much longer they will become mushy Pala and/or coconut flour instead of regular flour [...] pork rinds For yogurt, try Two Good romanian yogurt Use Danielle for recipe ideas. Type [...] 01/25/2022 Assessment & Plan (06/21/2023 12:11 PM MICROARRAY SPECIALIST): Patient advised colon cancer screening , not [...] (12/28/2021): Added automatically from request for surgery [id number] Impingement syndrome of left shoulder 12/28/2021 Overview (12/28/2021): Added automatically from request for surgery [id number] Biceps tendonitis on left 12/28/2021 Overview (12/28/2021): Added automatically from request for surgery [id number] Mixed hyperlipidemia 12/07/2021 Assessment & Plan (06/21/2023 12:00 PM MICROARRAY SPECIALIST): Patient presently on Zetia she has a history of intolerance to statin is noted in patient's patient monitor notes Dr. Kiran. 04/04/2023. I have no [...] 10/26/2021 Assessment & Plan (06/21/2023 12:15 PM MICROARRAY SPECIALIST): Patient presently on losartan 100 mg daily [...] - chronic, stable - has been on buttermaker continuous churn Lorazepam 1.5mg nightly, once in a while she would take an extra 1/2 tablet - not on other medications for anxiety - no coexisting depression - continue current therapy No results found for: TSH Assessment & Plan (10/26/2021 3:12 PM CDT): - chronic, stable - has been on buttermaker continuous churn Lorazepam 1-1.5mg nightly - not on other medications for anxiety - no coexisting depression - may continue current therapy Fibromyalgia 10/07/2021 Assessment & Plan (06/21/2023 12:06 PM MICROARRAY SPECIALIST): Patient advised me that gabapentin 300 mg [...] 10/06/2021 Assessment & Plan (06/21/2023 12:03 PM MICROARRAY SPECIALIST): Pain records reveal she had a syncopal episode 09/26/2021. Evaluation cardiovascular etiology noted in patient monitor notes Dr. Kiran April 04, 2023. This [...] stomach. 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 Overview (12/08/2021): 11/28 - Vitamin 12 was high so recommending cutting intake by half Assessment & Plan (06/21/2023 12:09 PM MICROARRAY SPECIALIST): Patient's has had this problem 20+ years [...] well Assessment & Plan (06/07/2021 1:22 PM MICROARRAY SPECIALIST): Start multi-vitamin Folic Acid 800 mg () [...] Encounters Date Type Department Care Team Description 03/17/2025 7:15 AM CDT Ancillary Procedure [facility] Cardiology [address] [facility] [address] [place] [phone] Status post placement of implantable loop recorder; H/O syncope 03/12/2025 11:15 AM CDT Office Visit [facility] Cardiology [address] [place] [phone] Dima Armas MD H/O syncope (Primary Dx); Status post placement of implantable loop recorder; Hypertension, essential; Obesity (BMI 30.0-34.9); Need for lipid screening 02/03/2025 7:15 AM CDT Ancillary Procedure [facility] Cardiology [address] [place] [phone] Status post placement of implantable loop recorder; H/O syncope from Last 3 Months Immunizations [...] on file Legal Sex Female 12:58 PM MICROARRAY SPECIALIST Gender Identity Not on file Sexual Orientation Not on file 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 Job End Date 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 Not on f [...] Sign Reading Time Taken Comments Blood Pressure 130/80 03/12/2025 11:15 AM CDT Pulse 67 03/12/2025 11:15 AM CDT Temperature 36.9 C (98.5 F) 12/21/2023 10:23 AM CDT Respiratory Rate 18 12/21/2023 10:23 AM CDT Oxygen Saturation 99% 03/12/2025 11:15 AM CDT Inhaled Oxygen Concentration - - Weight 99 kg (218 lb 4.8 oz) 03/12/2025 11:15 AM CDT Height 177.8 cm (5' 10) 03/12/2025 11:15 AM CDT Body Mass Index 31.32 03/12/2025 11:15 AM CDT Plan of Treatment Health Maintenance Due Date Last Done Comments Breast Cancer Screening-Mammogram 1950 Colon Cancer Screening-Colonoscopy 1950 DTaP/Tdap/Td Vaccine (1 - Tdap) 1962 Hepatitis B Screening 1969 Pneumococcal vaccine 65+ (1 of 2 - PCV) 1970 Zoster Vaccine (1 of 2) 2001 Osteoporosis Screening-Bone Density Scan 03/17/2024 03/17/2022 Depression Screening 06/20/2024 06/20/2023, 04/27/2022, 02/22/2022, Additional history exists Fall Risk Assessment 06/20/2024 06/20/2023, 04/27/2022, 02/22/2022, Additional history exists Well Visit 65+ 06/20/2024 06/20/2023 Covid-19 Vaccine (2024-2 6 season) 2025 06/10/2021, 11/10/2020, 10/13/2020 Influenza Vaccine (#1) 2025 Hepatitis C Screening Completed 12/07/2021 Colon Cancer Screening-DNA Stool Discontinued 07/13/19 Colon Cancer Screening-FIT Discontinued 07/13/2023 Medical Devices Implanted Type Area Automobile And Property Underwriter Device Identifier Shelf Expiration Date Model / Serial / Lot [employer] [id number] Ringloc+ 52mm Limit Hole Fin Hip 24 Shell Acetabular - Sn/A - [id number] Implanted:Qty: 1 on 05/02/2018 by Bert Lira MD at [facility] Left: Hip [employer] [id number] 02/17/2028 [id number] / N/A / [id number] [employer] [id number] Ringloc 36mm High Wall Hip +3mm 23 Liner Acetabular Arcomxl - Sn/A - [id number] Implanted:Qty: 1 on 05/02/2018 by Bert Lira MD at [facility] Left: Hip [employer] [id number] 03/29/2023 [id number] / N/A / [id number] [employer] [id number] Echo Bi-Metric 14mm 150mm Noncollar Reduce Proximal Profile Press - Sn/A - [id number] Implanted:Qty: 1 on 05/02/2018 by Bert Lira MD at [facility] Left: Hip [employer] [id number] 12/12/2027 [id number] / N/A / [id number] [employer] 650-1057 G7 36mm Hip Head Femoral Biolox Delta Option - Sn/A - [id number] Implanted:Qty: 1 on 05/02/2018 by Bert Lira MD at [facility] Left: Hip [employer] [id number] 10/21/2027 650-1057 / N/A / [id number] [employer] 650-1068 G7 Type 1 Hip +6mm Offset Taper Sleeve Centering Titanium Biolox - Sn/A - [id number] Implanted:Qty: 1 on 05/02/2018 by Bert Lira MD at [facility] Left: Hip [employer] [id number] 11/18/2027 650-1068 / N/A / [id number] Procedures Procedure Name Priority Date/Time Associated Diagnosis Comments POCT LIPID PANEL Routine 03/12/2025 3:38 PM CDT Need for lipid screening DEVICE CHECK - REMOTE Routine 02/04/2025 7:54 AM CDT Status post placement of implantable loop recorder H/O syncope STOOL DNA COLOGUARD Routine 07/13/2023 9:00 AM MICROARRAY SPECIALIST Colon cancer screening DEXA AXIAL SKELETON BONE DENSITY 1 OR MORE SITES Schedule Routine, Read Routine (OP Routine) 03/17/2022 11:33 AM CDT Postmenopausal HEPATITIS C ANTIBODY Routine 12/07/2021 11:27 AM CDT Need for hepatitis C screening test from Last 3 Months or Most Recently Relevant to Health Maintenance Results * (ABNORMAL) POCT lipid panel (03/12/2025 3:38 PM CDT) Cholesterol, POC 199 <200 MG/DL HDL, POC 46 >=40 mg/dL Triglycerides, POC 186(A) <=149 mg/dL LDL Cholesterol POC 116 <=129 mg/dL Chol/HDL Ratio, POC 2.5 NONE Non-HDL Cholesterol, POC 153 NONE mg/dL Cholesterol Total, POC 199 30 - 199 mg/dL Capillary blood 03/12/2025 3 :38 PM CDT Dima Armas MD POINT OF CARE TEST ORDERABLES Fi nal Result * DEVICE CHECK - REMOTE (02/04/2025 7:54 AM CDT) Anatomical Region Laterality Modality Other Narrative 02/28/2025 11:27 AM CDT Medtronic LNQ11. Dx; Syncope. DOI 10/12/2023-[place]. Carelink remote. Routine ILR remote. Normal device function. Battery function-OK. Presenting rhythm: Sinus bradycardia Medications: Losartan 100 mg, Toprol-XL 25 mg Counters since last scheduled transmission on 12/24/24. No auto or patient recorded episodes noted. See scanned report. CareLink remote f/u 03/17/25. Josef Biggs RN Dima Armas MD [facility] PROCEDURES F inal Result * Stool DNA - Cologuard (07/13/2023 9:00 AM MICROARRAY SPECIALIST) Stool DNA - Cologuard Negative Negative Red Stamp (CLIA #:[id number]) Comment: NEGATIVE TEST RESULT. A negative Cologuard [...] (Daryn Leahy al, N Engl J Med 2014;370(14):9399-5916) The normal value (reference range) for this assay is negative. COLOGUARD RE-SCREENING RECOMMENDATION: Periodic colorectal cancer screening is an important part of preventive healthcare for asymptomatic individuals at average risk for colorectal cancer. Following a negative Cologuard result, the [place] Cancer Society and U.S. Multi-Society Task Force screening guidelines recommend a Cologuard re-screening interval of 3 years. References: [place] [employer] Guideline for Colorectal Cancer Screening: https://www.cancer.org/cancer/mdeyg-fwlvht-vlyowy/gvbiuakcf-lrinskxmk-lmqgkdl/ac s-rec ommendations.html.; Sam FELIX, Yuniel OTERO, Cl REYES, Colorectal Cancer Screening: Recommendations for Physicians and Patients from the U.S. Multi-Society Task Force on Colorectal Cancer Screening , Am J Gastroenterology 2017; 112:4795-9462. TEST DESCRIPTION: Composite algorithmic analysis of stool [...] (Daryn Leahy al, N Engl J Med 2014;370(14):5623-5016.) Cologuard may produce a false negative or false positive result (no colorectal cancer or precancerous polyp present at colonoscopy follow up). A negative Cologuard test result does not guarantee the absence of CRC or advanced adenoma (pre-cancer). The current Cologuard screening interval is every 3 years. ([place] Cancer Society and U.S. Multi-Society Task Force). Cologuard performance data in a 10,000 patient pivotal study using colonoscopy as the reference method can be accessed at the following location: www.[employer]/results. Additional description of the Cologuard test process, warnings and precautions can be found at www.MyTraining.prord.com. Stool 07/13/2023 9:00 AM MICROARRAY SPECIALIST 07/14/2023 1:49 PM MICROARRAY SPECIALIST Alexander Pollard MD LAB BODY FLUIDS AND STOOLS ORDERABLES Final Result [employer] (CLIA #:[id number]) [place] [address] [place] [address] * Dexa Axial Skeleton Bone Density 1 or 2 Site (03/17/2022 11:33 AM CDT) Anatomical Region Laterality Modality Body N/A Other 03/17/2022 7:59 PM CDT Narrative 03/17/2022 8:05 PM CDT EXAM DESCRIPTION: DEXA AXIAL SKELETON BONE DENSITY 1 OR MORE SITES REASON FOR STUDY: 71 y/o year old F with given history of screening. Postmenopausal Automobile And Property Underwriter/Model: GrexIt SL (S/N [id number]) CLINICAL INFORMATION: Current height: 70 inches Maximum [...] Isaac Hu M.D. MF: ALAYNA Report ID: [id number] Reading Location: [place] [address] Procedure Note Isaac Hu MD - 03/17/2022 EXAM DESCRIPTION: DEXA AXIAL SKELETON BONE DENSITY 1 OR MORE SITES REASON FOR STUDY: 71 y/o year old F with given history ofscreening. Postmenopausal Automobile And Property Underwriter/Model: GET IT Mobile Discovery SL (S/N [id number]) CLINICAL INFORMATION: Current height: 70 inches Maximum [...] Isaac Hu M.D. MF: ALAYNA Report ID: [id number] Reading Location: [place] [address] Gregory Parks MD IMG DXA PROCEDURES Cristina l Result * Hepatitis C antibody (12/07/2021 11:27 AM CDT) Pathologist [facility] Hep C Ab Nonreactive Nonreactive [place] Comment: Interpretive Data Nonreactive: Antibodies to HCV [...] GENE RAL ORDERABLES Edited Result - Final [facility] [place] [id number] [address] [place] [address] from Last 3 Months or Most Recently Relevant to Health Maintenance Insurance [facility] MEDICARE ADVANTAGE [facility] MEDICARE ADVANTAGE [facility] MEDICARE ADVANTAGE Advance Directives For more information, please contact: [phone] * Full Code (Latest Code Status on File) Date Activated Date Inactivated Comments 10/06/2021 12:51 PM 10/07/2021 6:51 PM * Full Code Date Activated Date Inactivated Comments 05/02/2018 11:21 AM 05/03/2018 3:58 PM Care Teams Auto Glass Installer Relationship Specialty Start Date End Date Theo Li MD PCP - General Family Practice 12/06/23 Ruht Gomez MD 12/06/17 Morales Guerrero MD Consulting Physician Cardiovascular Disease 10/07/21
--- OUTSIDE RECORDS SUMMARY | 2025-04-09 09:33 | XMS_ITS | Encounter Summary ---
Author Organization [facility] Healthcare Address [address] [place] [address] Care Team Providers Care Area Intelligence Technician Name Role Phone Ruth Gomez MD Unavailable [phone] Morales Guerrero MD Unavailable [phone] Theo Li MD Primary Care Provider [phone] Encounter Details Date Type Department Care Team (Late st Contact Info) Description 04/22/2024 Orders Only [facility] Health Information Management [address] [place] [id number] Scanning, Provider Social History Tobacco Use Types Packs/Day Years Used Date Smoking Tobacco: Never Smokeless Tobacco: Never Alcohol Use Standard Drinks/Week Comments No 0 (1 standard drink = 0.6 oz pur e alcohol) PHQ-2 Answer Date Recorded PHQ-2 Total Score (If total score is 3 or more points, staff should administer the PHQ-9) 0 06/20/2023 Comments No Sex and Gender Information Value Date Recorded Sex Assigned at Not on file Legal Sex Female 12:58 PM PROTECTIVE SIGNAL INSTALLER Gender Identity Not on file Sexual Orientation Not on file 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 Not on f ile Not on file documented as of this encounter Plan of Treatment Not on file documented as of this encounter Procedures Procedure Name Priority Date/Time Associated Diagnosis Comments SCAN - LABS 04/22/2024 documented in this encounter Results * SCAN - LABS (04/22/2024) us Provider Scanning Final Result documented in this encounter Visit Diagnoses Not on filedocumented in this encounter Care Teams Area Intelligence Technician Relationship Specialty Start Date End Date Theo Li MD PCP - General Family Practice 12/06/23 Ruth Gomez MD 12/06/17 Morales Guerrero MD Consulting Physician Cardiovascular Disease 10/07/21 documented as of this encounter
--- OUTSIDE RECORDS SUMMARY | 2025-04-09 09:33 | XMS_ITS | Clinical Summary ---
Author Organization [facility] Address [address] [place] [address] Phone Care Team Providers Care Power Brake Operator Name Role Phone Theo Li MD Primary [...] Comments Blood Pressure 146/86 06/24/2024 10:04 AM MEDICAL RECORDS TECHNICIAN Pulse 71 06/24/2024 10:04 AM MEDICAL RECORDS TECHNICIAN Temperature 36.5 C (97.7 F) 06/24/2024 10:04 AM MEDICAL RECORDS TECHNICIAN Respiratory Rate 16 06/24/2024 10:04 AM MEDICAL RECORDS TECHNICIAN Oxygen Saturation 100% 06/24/2024 10:04 AM MEDICAL RECORDS TECHNICIAN Inhaled Oxygen Concentration - - Weight 97 kg (213 lb 12.8 oz) 06/24/2024 10:04 A M MEDICAL RECORDS TECHNICIAN Height 177.8 cm (5' 10) 06/24/2024 10:04 AM MEDICAL RECORDS TECHNICIAN Body Mass Index 30.68 06/24/2024 10:04 AM MEDICAL RECORDS TECHNICIAN Plan of Treatment Health Maintenance Due Date Last Done Comments Hepatitis C Virus (HCV) Screening 1950 Mammogram 1950 TdaP Immunization 1950 Cologuard 1996 Colonoscopy 1996 Colorectal Cancer Screening 1996 Immunochemical Fecal Occult Blood 1996 Pneumococcal Immunization (5 0+ years) (1 of 1 - PCV) 2001 Zoster Immunization (1 of 2) 2001 DEXA Bone Density 03/17/2024 03/17/2022 Medicare Initial AWV [id number] 07/10/2024 Influenza Immunization (#1) 2025 SARS-COV-2 Immunization ( - season) 2025 Respiratory Syncytial Virus (RSV) Immunization (Adult) [...] to complete this topic Insurance MEDICARE C [facility] Care Teams Power Brake Operator Relationship Specialty Start Date End Date Theo Li MD PCP - General Family Medicine 02/12/24
--- NOTE | 2025-04-09 09:36 | ED_ITS ---
HPI - Female Genitourinary General Chief complaint: Urogenital-Female Stated complaint: Blood in urine Time Seen by Provider: 04/09/25 09:25 Source: patient, RN notes reviewed and old records reviewed Mode of arrival: ambulatory Limitations: no limitations History of Present Illness HPI Narrative: 74 year old female who presents to express care with complaints of having some frequency, urgency, some suprapubic discomfort and some right groin discomfort since yesterday and has noted some blood in her urine when she wipes. Patient reports that she has some discomfort in her left flank and feels uncomfortable in perineal area. Patient reports history of back pain and sees Dr Rizvi for pain management and is suppose to be having upcoming epidural treatments. She reports that she has had bilateral injections in her hips and she has recently had MRI with contrast on her back. Patient reports that she noted blood in urine when she wiped again today and did note a few drops of blood in underwear. Patient does voice past history of UTI's, no history of previous kidney or bladder stones. MD elicited complaint: UTI Pertinent past history: other (past UTI's) Onset (ago): day(s) (day 2 of symptoms) Location of symptoms: perineum, suprapubic, flank (left flank) and other (right groin) Severity scale (1-10): 5 Vaginal discharge: none Vaginal bleeding: none Urinary symptoms: Urgency, Frequency and Hematuria (blood noted when wiping no gross hematuria) Related Data Home Medications ?Medication ?Instructions ?Recorded ?Confirmed ?Last Taken ?Type B complex 11-folic acid 1 mg-C 100 1 tablet PO DAILY 0 10/11/23 10/11/23 10/11/23 History mg-biotin 300 mcg-zinc 50 mg tablet ezetimibe 10 mg tablet 10 mg PO DAILY 10/11/2310/0910/11/23 History lysine 500 mg tablet (L-Lysine) 500 mg PO DAILY 10/30/24 10/11/23 History vits 75-iron 28 mg-folic 1 pkg PO DAILY 10/1010/30/24 10/11/23 History acid 800 mcg-omega3 440 mg oral pack triamcinolone acetonide 0.1 % 1 ea mucous membrane PRN PRN Mouth 10/11/23 10/30/24 Unknown History dental paste Irritation Allergies Allergy/AdvReac Type Severity Reaction Status Date / Time Sulfa (Sulfonamide Allergy Intermediate RASH Verified 04/09/25 09:26 Antibiotics) amoxicillin (From Augmentin) Allergy Mild Itching Verified 04/09/25 09:26 clavulanic acid (From Allergy Mild Itching Verified 04/09/25 09:26 Augmentin) tetanus and diphtheria Allergy Unknown [id number] [place] Verified 04/09/25 09:26 toxoids Year Review of Systems Review of Systems: CONSTITUTIONAL: Denies fever, chills, or sweats. CARDIOVASCULAR: Denies chest pain, palpitations, or edema. RESPIRATORY: Denies cough or dyspnea. GASTROINTESTINAL: Denies abdominal pain, nausea, vomiting, or diarrhea. GENITOURINARY: Reports uncomfortable with urination,states frequency and urgency. reports left flank pain positive for visible blood in urine and suprapubic pressure, perineum discomfort. . SKIN: Denies rash or itching. MUSCULOSKELETAL: History of chronic back pain and hip myalgia. reports some left CVA tenderness NEUROLOGIC: Denies headache All systems reviewed & are unremarkable except as noted in HPI and below PMFSH Past Medical History Medical History Vaginal dryness, menopausal Stress Overactive bladder Gastroesophageal reflux Mammogram normal (~2019) Asthma Anxiety Hypertension Hyperlipidemia Fibromyalgia Surgical History Surgical History H/O foot surgery History of hip replacement, total History of cataract extraction Family History Family History Mother Bladder cancer Hypertension Mother Hypertension Family history of malignant neoplasm of urinary bladder Grandparent Carcinoma of colon Family history of type 2 diabetes mellitus Father Family history of throat cancer Patient's father is Social History Social History Smoking status: Never smoker Second hand tobacco smoke exposure: No Alcohol intake: never Substance use: never Substance use type: does not use Lack of Transportation: No Lack of Food: Never True Current Housing: I Have Housing Concerned About Future Housing: No Difficulty Paying Gas/Electric Bills: No Difficulty Paying for Meds: No Currently Unemployed: No Education: High School Diploma/GED Difficulty w/ Childcare or Family Care: No Living arrangements: with family Occupation/Education: retired Gender identity (if verbalized by the patient): Female Spiritual care concerns: No Comments At time of signature, agree with nursing past medical, surgical, social and fam tea history. There is no relevant family history pertinent to the presenting complaint Exam Narrative: GENERAL: Well-appearing, well-nourished, and in no acute distress. HEAD: Normocephalic, atraumatic. NECK: Supple.no lymphadenopathy CHEST: Clear to auscultation. No respiratory distress. HEART: Regular rate and rhythm. No murmur heard. Normal peripheral pulses. ABDOMEN: Soft, nontender, nondistended, normal active bowel sounds. some left CVA tenderness, reports some suprapubic pain and right groin discomfort, frequency and urgency of urination, blood in urine EXTREMITIES: Normal range of motion. No edema.reports chronic hip and back pain sees pain management, recent injections in hips SKIN: Warm, dry, no rash. NEURO: No focal deficits. Alert and oriented x3. Course Course Emergency Course: Patient is aware of diagnosis, understands and agrees to treatment plan.? Anticipatory guidance given.? Patient agrees to follow-up as directed and is aware of reasons to seek care at the emergency department. Portions of this record may have been created with voice recognition software Level of Care: Express Care Visit Vital Signs Vital signs: Vital Signs Temperature 36.1 C L 04/09/25 09:11 Pulse Rate 70 04/09/25 09:11 Respiratory Rate 16 04/09/25 09:11 Blood Pressure 181/74 H 04/09/25 09:11 Pulse Oximetry 98 04/09/25 09:11 Oxygen Delivery Room Air 04/09/25 09:11 Temperature 36.1 C L 04/09/25 09:11 Pulse Rate 70 04/09/25 09:11 Respiratory Rate 16 04/09/25 09:11 Blood Pressure 158/88 H 04/09/25 10:03 Pulse Oximetry 98 04/09/25 09:11 Oxygen Delivery Room Air 04/09/25 09:11 MDM - Female Genitourinary MDM Narrative Medical decision making narrative: Exam findings and UA show no acute concerns or changes; patient is non-toxic appearing and is in no distress.? Patient is appropriate for outpatient treatment and follow-up. Differential Diagnosis Differential diagnosis: Likely urinary tract infection, cystitis and other (urinary frequency and urgency, blood in urine) Medical Records Attestation: I reviewed the patient's medical records. Lab Data Attestation: I reviewed the patient's lab results. Lab results narrative: Urine dip glucose negative, bilirubin negative, ketone negative specific gravity 1.015, blood trace intact pH 6.5, protein negative, urobilinogen 0.2, nitrate negative leukocyte negative.. Urine culture sent Labs: Lab Results 04/09/25 Range/Units 09:58 POC Urine Color Yellow POC Urine Clarity Clear POC Urine pH 6.5 POC Ur Specif [place] 1.015 POC Urine Protein Negative (Negative) POC Ur Glucose (UA) Negative (Negative) POC Urine Ketones Negative (Negative) POC Urine Blood Trace (Negative) POC Urine Nitrite Negative (Negative) POC Urine Bilirubin Negative (Negative) POC Urine Urobilinogen 0.2 POC U Leukocyte Esteras Negative (Negative) reviewed Critical Care Time Critical Care Time Critical Care Time: No Discharge Plan Discharge Clinical Impression: Urinary tract infection symptoms Blood in urine Qualifiers: Hematuria type: unspecified type Qualified Code(s): R31.9 - Hematuria, unspecified Patient Disposition: Home Condition: Stable Instructions: Antibiotic Form, Urinary Tract Infection in Women (ED) Additional Instructions: Increase fluids especially cranberry juice and water Avoid caffeine and carbonated beverages Antibiotic as directed Tylenol/ibuprofen for pain or fever package instructions Follow-up with her primary care provider if further problems or concerns Recheck if you have fever over 101, nausea and vomiting. Instructed if increase blood in urine and increased pain go directly to the emergency room Follow-up with your primary care provider in scheduled May appointment or sooner if any further problems or concerns If your symptoms persist, change or worsen significantly before you can contact your personal physician then please, without delay, go to the emergency department for further evaluation. Follow-up with PCP in 7-10 days or sooner if needed Follow up with PCP soon in regards to your blood pressure which is elevated above threshold for referral. Blood pressure above 120/80 may indicate pre- hypertension.181/74 recheck 158/88 Patient Language: Nauruan Prescriptions: New cephalexin 500 mg capsule 500 mg PO Q12H 5 Days Qty: 10 0RF Rx Instructions: take with food No Action ropinirole 0.5 mg tablet 0.5 mg PO BID Qty: 30 0RF dicyclomine 10 mg capsule 10 mg PO BID PRN (Reason: abdominal pain) Qty: 30 1RF triamcinolone acetonide 0.1 % paste 1 ea mucous membrane PRN PRN (Reason: Mouth Irritation) lysine [L-Lysine] 500 mg Tablet 500 mg PO DAILY ezetimibe 10 mg tablet 10 mg PO DAILY B complex [id number]-biot-zinc [id number] pr-zb-tie-mg Tablet 1 tablet PO DAILY Daily [phone] mg-mcg-mg Combo Pack 1 pkg PO DAILY losartan 100 mg tablet 100 mg PO DAILY Qty: 90 1RF furosemide [Lasix] 20 mg tablet 20 mg PO DAILY Qty: 90 0RF metoprolol succinate 25 mg tablet extended release 24 hr 25 mg PO DAILY Qty: 90 0RF Follow-up/Referrals: Theo Li MD [Primary Care Provider, [facility]] Time of Disposition: 09:52 Quality Bogart Coma Scale Eyes: Open Verbal: Oriented and Alert Motor: Follows Commands Bogart Coma Total Score: 15
[2025-04-09 10:00] LABS: EDUAAPPEAR Clear; EDUABILI Negative (Negative); EDUABLOOD Trace (Negative); EDUACOLOR1 Yellow; EDUAGLUCOSE Negative (Negative); EDUAKETONE Negative (Negative); EDUALEUKO Negative (Negative); EDUANITRATE Negative (Negative); EDUAPH 6.5; EDUAPROTEIN Negative (Negative); EDUASPGRAVITY 1.015; EDUAUROBILI 0.2
[2025-04-09 10:03] VITALS: BP 158/88
== END 2025-04-09 10:03 | disposition home or self-care (01) ==
PROVIDERS: Emergency Provider Registered Nurse; PCP Family Medicine
DX: R35.0 Frequency of micturition (principal); R39.15 Urgency of urination; R10.30 Lower abdominal pain, unspecified; R31.9 Hematuria, unspecified; I10 Essential (primary) hypertension; E78.5 Hyperlipidemia, unspecified; M79.7 Fibromyalgia; J45.909 Unspecified asthma, uncomplicated; K21.9 Gastro-esophageal reflux disease without esophagitis
CPT/HCPCS: 81003; 87086; 99213; G0463

== ENCOUNTER 2025-05-01 09:10 | Outpatient (CLI) | payer MEDICARE, SELFPAY ==
--- OUTSIDE RECORDS SUMMARY | 2025-05-01 09:35 | XMS_ITS | Clinical Summary ---
Author Organization [facility] Address [address] [place] [address] Phone Care Team Providers Care Codifier Name Role Phone Theo Li MD Primary Care Provider [phone] Allergies Active Allergy Reactions Criticality Noted Date Comments Amoxicillin Itching 02/13/2024 Clavulanic Acid Itching 02/13/2024 Sulfa Antibiotics Rash 02/13/2024 Tetanus-Diphtheria Toxoids Td Unknown 2023 Medications dicyclomine (BENTYL) 10 MG Capsule 11/21/2023 Active losartan (COZAAR) 100 MG Tablet Take 100 mg by mouth daily. 06/20/2023 Active Linzess 72 MCG Capsule as needed 03/25/2024 Active cyanocobalamin 1000 MCG Tablet Take 1,000 mcg by mouth. Active ezetimibe (ZETIA) 10 MG Tablet Take 10 mg by mouth daily. 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 Pulse 71 06/24/2024 10:04 AM TEXTILE ENGINEER Temperature 36.5 C (97.7 F) 06/24/2024 10:04 AM TEXTILE ENGINEER Respiratory Rate 16 06/24/2024 10:04 AM TEXTILE ENGINEER Oxygen Saturation 100% 06/24/2024 10:04 AM TEXTILE ENGINEER Inhaled Oxygen Concentration - - Weight 97 kg (213 lb 12.8 oz) 06/24/2024 10:04 A M TEXTILE ENGINEER Height 177.8 cm (5' 10) 06/24/2024 10:04 AM TEXTILE ENGINEER Body Mass Index 30.68 06/24/2024 10:04 AM TEXTILE ENGINEER Plan of Treatment Health Maintenance Due Date [...] to complete this topic Insurance MEDICARE C [facility] Care Teams Codifier Relationship Specialty Start Date End Date Theo Li MD PCP - General Family Medicine 02/12/24
--- OUTSIDE RECORDS SUMMARY | 2025-05-01 09:35 | XMS_ITS | Clinical Summary ---
Author Organization [facility] Address [address] [place] [id number] Care Team Providers Care Plate Molder Name Role Phone Ruth Gomez MD Primary Care Provider [phone] Social History Tobacco Use Types Packs/Day Years [...] Scan (General) 2016 COVID-19 Vaccine ( - 2024-2 6 season) 2025 Influenza Adult (#1) 2025 RSV Immunization or 60+ Years (1 - 1-dose 75+ series) 2026 Hepatitis A Vaccines Aged Out No long er eligible based on patient's age to complete this topic Meningococcal B Vaccine Aged Out No l onger eligible based on patient's age to complete this topic Meningococcal Vaccine Aged Out No jefe barrie eligible based on patient's age to complete this topic RSV Immunizations Under 20 Months Aged Out No longer eligible based on patient's age to complete this topic Insurance MEDICARE [facility] Care Teams Plate Molder Relationship Specialty Start Date End Date Ruth Gomez MD PCP - General FAMILY PRACTICE 03/17/20
--- OUTSIDE RECORDS SUMMARY | 2025-05-01 09:35 | XMS_ITS | Encounter Summary ---
Author Organization [facility] Healthcare Address [address] [place] [address] Care Team Providers Care Office Helper Clerical Name Role Phone Ruth Gomez MD Unavailable [phone] Morales Guerrero MD Unavailable [phone] Theo Li MD Primary Care Provider [phone] Encounter Details Date Type Department Care Team (Late st Contact Info) Description 04/22/2024 Orders Only [facility] Health Information Management [address] [place] [id number] Scanning, Provider Social History Tobacco Use [...] on file Legal Sex Female 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
--- OUTSIDE RECORDS SUMMARY | 2025-05-01 09:36 | XMS_ITS | Clinical Summary ---
Author Organization [facility]ly [facility] Address [address] [place] [address] Care Team Providers Care Manager Dental Name Role Phone Ruth Gomez MD Unavailable [phone] LuMorales perez MD Unavailable [phone] Theo Li MD Primary Care Provider [phone] Allergies Active Allergy Reactions Criticality Noted Date Comments Conj Estrog-Medroxyprogest Erick Other (See comments) Low 03/23/2015 Mouth sores Diclofenac Swelling Medium 05/17/2022 Rmxspvt-Akn-Exu Reductase Inhibitors Muscle pain Medium 06/21/2023 Sulfa [...] mouth daily 90 tablet 3 04/23/20 24 Active Linzess 72 mcg capsule as needed [...] 7 days 2 mL 03/12/20 25 Active Active Problems Problem Noted Date Diagnosed Date Visit for wound check 10/19/2023 Status post placement of implantable loop record er 10/12/2023 Overview (10/12/2023): Medtronic LNQ11. Dx; Syncope. DOI 10/12/2023-[place]. Corinalink remote. Slow transit constipation 06/21/2023 Assessment & Plan (06/21/2023 12:14 PM FLOOR SPECIALIST): Patient reports constipation probiotics help control this best patient did not tolerate Linzess Recurrent UTI (urinary tract infection) 06/21/20 23 Assessment & Plan (06/21/2023 12:25 PM FLOOR SPECIALIST): Patient advised me she is had a history recurrent UTI. 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 He is done multiple tests etiology not found. Patient is not symptomatic at this time H/O syncope 04/04/2023 Medication side effects 05/03/2022 Gastroesophageal reflux disease 04/27/2022 Assessment & Plan (06/21/2023 12:04 PM FLOOR SPECIALIST): Patient advised me on today's date [...] time Assessment & Plan (06/21/2023 12:28 PM FLOOR SPECIALIST): This is a new patient to [...] in your mouth on an nivia like [employer] Lower carb substitutions: [employer] carries a zero [...] in much longer they will become mushy [place] and/or coconut flour instead of regular flour [...] pork rinds For yogurt, try Two Good belgian yogurt Use Danielle for recipe ideas. Type [...] 01/25/2022 Assessment & Plan (06/21/2023 12:11 PM FLOOR SPECIALIST): Patient advised colon cancer screening , [...] (12/28/2021): Added automatically from request for surgery [id number] Impingement syndrome of left shoulder 12/28/2021 Overview (12/28/2021): Added automatically from request for surgery [id number] Biceps tendonitis on left 12/28/2021 Overview (12/28/2021): Added automatically from request for surgery [id number] Mixed hyperlipidemia 12/07/2021 Assessment & Plan (06/21/2023 12:00 PM FLOOR SPECIALIST): Patient presently on Zetia she has a history of intolerance to statin is noted in patient's rn school notes Dr. Kiran. 04/04/2023. I have no [...] 10/26/2021 Assessment & Plan (06/21/2023 12:15 PM FLOOR SPECIALIST): Patient presently on losartan 100 mg [...] - chronic, stable - has been on skilled nursing Lorazepam 1.5mg nightly, once in a while she would take an extra 1/2 tablet - not on other medications for anxiety - no coexisting depression - continue current therapy No results found for: TSH Assessment & Plan (10/26/2021 3:12 PM CDT): - chronic, stable - has been on medical terminologist Lorazepam 1-1.5mg nightly - not on other medications for anxiety - no coexisting depression - may continue current therapy Fibromyalgia 10/07/2021 Assessment & Plan (06/21/2023 12:06 PM FLOOR SPECIALIST): Patient advised me that gabapentin 300 [...] 10/06/2021 Assessment & Plan (06/21/2023 12:03 PM FLOOR SPECIALIST): Pain records reveal she had a syncopal episode 09/26/2021. Evaluation cardiovascular etiology noted in rn school notes Dr. Kiran April 04, 2023. This [...] stomach. 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 Cardiology [address] [place] [address] [place] [phone] Status post placement of implantable loop recorder; H/O syncope 03/17/2025 7:15 AM CDT Ancillary Procedure [facility] Cardiology [address] [place] [phone] Status post placement of implantable loop recorder; H/O syncope 03/12/2025 11:15 AM CDT Office Visit [facility] Medical [facility] Cardiology [address] [address] [place] [phone] Dima Armas MD H/O syncope (Primary Dx); Status post placement of implantable loop recorder; Hypertension, essential; Obesity (BMI 30.0-34.9); Need for lipid screening 02/03/2025 7:15 AM CDT Ancillary Procedure [facility] Cardiology [address] [facility] [address], [place] [address] Status post placement of implantable loop [...] on file Legal Sex Female 12:58 PM FLOOR SPECIALIST Gender Identity Not on file Sexual Orientation Not on file 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 Job End Date 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 Left: Hip [employer] [id number] 02/17/2028 [id number] / N/A / [id number] [employer] [id number] Ringloc 36mm High Wall Hip +3mm 23 Liner Acetabular Arcomxl - Sn/A - [id number] Implanted:Qty: 1 on 05/02/2018 by Bert Lira MD at [facility] Left: Hip [employer] [id number] 03/29/2023 [id number] / N/A / [id number] [employer] [id number] Echo Bi-Metric 14mm 150mm Noncollar Reduce Proximal Profile Press - Sn/A - [id number] Implanted:Qty: 1 on 05/02/2018 by Bert Lira MD at [facility] Left: Hip [employer] [id number] 12/12/2027 [id number] / N/A / [id number] [employer] 650-1057 G7 36mm Hip Head Femoral Biolox Delta Option - Sn/A - [id number] Implanted:Qty: 1 on 05/02/2018 by Bert Lira MD at [facility] Left: Hip [employer] [id number] 10/21/2027 650-1057 / N/A / [id number] [employer] 650-1068 G7 Type 1 Hip +6mm Offset Taper Sleeve Centering Titanium Biolox - Sn/A - [id number] Implanted:Qty: 1 on 05/02/2018 by Bert Lira MD at [facility] Left: Hip [employer] [id number] 11/18/2027 650-1068 / N/A / [id number] Procedures Procedure Name Priority Date/Time Associated Diagnosis Comments DEVICE CHECK - REMOTE Routine 04/28/2025 4:44 PM CDT Status post placement of implantable loop recorder H/O syncope DEVICE CHECK - REMOTE Routine 03/17/2025 2:54 PM CDT Status post placement of implantable loop recorder H/O syncope POCT LIPID PANEL Routine 03/12/2025 3:38 PM CDT Need for lipid screening DEVICE CHECK - REMOTE Routine 02/04/2025 7:54 AM CDT Status post placement of implantable loop recorder H/O syncope STOOL DNA COLOGUARD Routine 07/13/2023 9:00 AM FLOOR SPECIALIST Colon cancer screening DEXA AXIAL SKELETON BONE DENSITY 1 OR MORE SITES Schedule Routine, Read Routine (OP Routine) 03/17/2022 11:33 AM CDT Postmenopausal HEPATITIS C ANTIBODY Routine 12/07/2021 11:27 AM CDT Need for hepatitis C screening test from Last 3 Months or Most Recently Relevant to Health Maintenance Results * DEVICE CHECK - REMOTE (04/28/2025 4:44 PM CDT) Anatomical Region Laterality Modality Other Narrative 04/29/2025 1:47 PM CDT Medtronic LNQ11. Dx; Syncope. DOI 10/12/2023-[place]. [facility]link remote. Routine ILR remote. Normal device function. Battery function-OK Presenting rhythm: NSR Medications: Losartan 100 mg Counters since last scheduled transmission on 03/18/25. --0 Tachy --0 Abraham --1 Pause - EGM demonstrates one 3 second pause --0 Symptom --0 AF See scanned report. [facility] remote f/u 06/09/25. Josef Biggs RN us Dima Armas MD CV CARDIAC SERVICES PROCEDURES F inal Result * DEVICE CHECK - REMOTE (03/17/2025 2:54 PM CDT) Anatomical Region Laterality Modality Other Narrative 04/17/2025 9:36 AM CDT Medtronic LNQ11. Dx; Syncope. DOI 10/12/2023-[place]. [facility]link remote. Routine ILR remote. Normal device function. Battery function-OK. Presenting rhythm: NSR Medications: Losartan 100 mg Counters since last scheduled transmission on 02/04/25. No auto or patient recorded episodes noted. See scanned report. [facility] remote f/u 04/28/25. Josef Biggs RN Result Rebekah Armas MD CV CARDIAC SERVICES PROCEDURES F inal Result * (ABNORMAL) POCT lipid panel (03/12/2025 3:38 PM CDT) Cholesterol, POC 199 <200 MG/DL HDL, POC 46 >=40 mg/dL Triglycerides, POC 186(A) <=149 mg/dL LDL Cholesterol POC 116 <=129 mg/dL Chol/HDL Ratio, POC 2.5 NONE Non-HDL Cholesterol, POC 153 NONE mg/dL Cholesterol Total, POC 199 30 - 199 mg/dL Capillary blood 03/12/2025 3 :38 PM CDT us Dima Armas MD POINT OF CARE TEST ORDERABLES Fi nal Result * DEVICE CHECK - REMOTE (02/04/2025 7:54 AM CDT) Anatomical Region Laterality Modality Other Narrative 02/28/2025 11:27 AM CDT Medtronic LNQ11. Dx; Syncope. DOI 10/12/2023-[place]. Carelink remote. Routine ILR remote. Normal device function. Battery function-OK. Presenting rhythm: Sinus bradycardia Medications: Losartan 100 mg, Toprol-XL 25 mg Counters since last scheduled transmission on 12/24/24. No auto or patient recorded episodes noted. See scanned report. [facility] remote f/u 03/17/25. Josef Biggs RN us Dima Armas MD CV CARDIAC SERVICES PROCEDURES F inal Result * Stool DNA - Cologuard (07/13/2023 9:00 AM FLOOR SPECIALIST) Stool DNA - Cologuard Negative Negative [facility] (CLIA #:[id number]) Comment: NEGATIVE TEST RESULT. A negative Cologuard [...] (Daryn Leahy al, N Engl J Med 2014;370(14):0999-7266) The normal value (reference range) for this assay is negative. COLOGUARD RE-SCREENING RECOMMENDATION: Periodic colorectal cancer screening is an important part of preventive healthcare for asymptomatic individuals at average risk for colorectal cancer. Following a negative Cologuard result, the [place] [employer] Society and U.S. Multi-Society Task Force screening guidelines recommend a Cologuard re-screening interval of 3 years. References: [place] [employer] Guideline for Colorectal Cancer Screening: https://www.cancer.org/cancer/lgzqm-geiaat-luexij/jhcmmigrh-tdaoxjudk-oiryjee/ac s-rec ommendations.html.; Sam DK, Yuniel CR, Cl PenaK, Colorectal Cancer Screening: Recommendations for Physicians and Patients from the U.S. Multi-Society Task Force on Colorectal Cancer Screening , Am J Gastroenterology 2017; 112:2616-8092. TEST DESCRIPTION: Composite algorithmic analysis of stool [...] Sanford et al, N Engl J Med 2014;370(14):4910-4489.) Cologuard may produce a false negative or false positive result (no colorectal cancer or precancerous polyp present at colonoscopy follow up). A negative Cologuard test result does not guarantee the absence of CRC or advanced adenoma (pre-cancer). The current Cologuard screening interval is every 3 years. ([place] [employer] Society and U.S. Multi-Society Task Force). Cologuard performance data in a 10,000 patient pivotal study using colonoscopy as the reference method can be accessed at the following location: www.Populis.Qurater/results. Additional description of the Cologuard test process, warnings and precautions can be found at www.Cryoocyte.com. Stool 07/13/2023 9:00 AM FLOOR SPECIALIST 07/14/2023 1:49 PM FLOOR SPECIALIST us Alexander Pollard MD LAB BODY FLUIDS AND STOOLS ORDERABLES Final Result [facility] (CLIA #:[id number]) [place] [address] * Dexa Axial Skeleton Bone Density 1 or 2 Site (03/17/2022 11:33 AM CDT) Anatomical Region Laterality Modality Body N/A Other 03/17/2022 7:59 PM CDT Narrative 03/17/2022 8:05 PM CDT EXAM DESCRIPTION: DEXA AXIAL SKELETON BONE DENSITY 1 OR MORE SITES REASON FOR STUDY: 71 y/o year old F with given history of screening. Postmenopausal Ruling Technician/Model: Gogoyoko SL (S/N [id number]) CLINICAL INFORMATION: Current height: 70 inches Maximum [...] Isaac Hu M.D. MF: ALAYNA Report ID: [id number] Reading Location: [id number] [facility] Note Isaac Hu MD - 03/17/2022 EXAM DESCRIPTION: DEXA AXIAL SKELETON BONE DENSITY 1 OR MORE SITES REASON FOR STUDY: 71 y/o year old F with given history ofscreening. Postmenopausal Ruling Technician/Model: Gogoyoko SL (S/N [id number]) CLINICAL INFORMATION: Current height: 70 inches Maximum [...] Isaac Hu M.D. MF: ALAYNA Report ID: [id number] Reading Location: [place] [address] Gregory Parks MD IMG DXA PROCEDURES Cristina [...] 7 AM CDT 12/07/2021 8:29 PM CDT us Gregory Parks MD LAB MICROBIOLOGY - GENE RAL ORDERABLES Edited Result - Final [facility] [id number] [place] [address] from Last 3 Months or Most Recently Relevant to Health Maintenance Insurance [employer]ARE [facility] MEDIC[facility] Address: [address] [place] [address] [employer] MEDIC[facility] Address: [address] [address] [employer] [facility] [facility] MEDIC[facility] Address: [facility] [address] [place] [address] Advance Directives For more information, please contact: [phone] * Full Code (Latest Code Status on File) Date Activated Date Inactivated Comments 10/06/2021 12:51 PM 10/07/2021 6:51 PM * Full Code Date Activated Date Inactivated Comments 05/02/2018 11:21 AM 05/03/2018 3:58 PM Care Teams Manager Dental Relationship Specialty Start Date End Date Theo Li MD PCP - General Family Practice 12/06/23 Ruth Gomez MD 12/06/17 Morales Guerrero MD Consulting Physician Cardiovascular Disease 10/07/21
--- OUTSIDE RECORDS SUMMARY | 2025-05-01 09:36 | XMS_ITS | Clinical Summary ---
Author Organization [facility] Address [address] [place] [address] Phone Care Team Providers Care Weed Control Inspector Name Role Phone Unavailable Primary Care Provider [...] (1 - 1-dose 75+ series) 2026 Insurance [facility] [employer] PPO [id number] [facility]
[2025-05-01 18:57] LABS: Hematocrit 43.0 % (37.0-47.0); Hemoglobin 13.5 g/dL (12.0-15.0); Immature Granulocyte Percent A 0.3 % (0-0.5); Lymphocytes Absolute Auto 1.40 K/mm3 (0.9-3.2); Mean Corpuscular HGB Conc 31.4 g/dl (32-36); Mean Corpuscular Hemoglobin 31.4 pg (26-34); Mean Corpuscular Volume 100.0 fl (80-100); Nucleated Red Blood Cells Absolute Auto 0.000 K/mm3 (0.0-0.012); Nucleated Red Blood Cells Perc 0.0 % (0.0-0.2); Platelet Count Result 248 k/mm3 (150-375); Red Blood Count 4.30 M/mm3 (4.2-5.4); White Blood Count 6.7 K/mm3 (4.5-10.0)
[2025-05-01 20:14] LABS: Alanine Aminotransferase 24 U/L (6-35); Albumin Level 4.3 g/dL (3.5-5.1); Alkaline Phosphatase 89 U/L (38-126); Aspartate Amino Transferase 60 U/L (14-36); Bilirubin,Total 0.4 mg/dL (0.2-1.3); Blood Urea Nitrogen 26 mg/dL (7-17); Calcium 9.6 mg/dL (8.4-10.2); Carbon Dioxide 29 mmol/L (22-30); Chloride 101 mmol/L (98-107); Cholesterol 230 mg/dL (0-200); Estimated Glomerular Filt Rate 44; Glucose 80 mg/dL (65-110); HDL Direct 59 mg/dL; Total Protein 7.5 g/dL (6.3-8.2); Triglycerides 112 mg/dL (<150)
[2025-05-01 20:42] LABS: Thyroid Stimulating Hormone 4.940 uIU/mL (0.465-4.680)
[2025-05-01 22:40] LABS: Anion Gap 7 mmol/L (4-12); Potassium 5.4 mmol/L (3.4-5.0); Sodium 137 mmol/L (137-145)
== END 2025-05-01 09:11 | disposition home or self-care (01) ==
LOC: ANHBWCLAB 09:11
PROVIDERS: PCP Family Medicine; Visit Provider Family Medicine
DX: J45.909 Unspecified asthma, uncomplicated (principal); M25.559 Pain in unspecified hip; R53.83 Other fatigue; R55 Syncope and collapse; Z00.00 Encounter for general adult medical examination without abnormal findings; I10 Essential (primary) hypertension
CPT/HCPCS: 36415; 80053; 80061; 82172; 83090; 84443; 85025

== ENCOUNTER 2025-06-19 12:38 | Outpatient (CLI) | payer MEDICARE, SELFPAY ==
[2025-06-19 18:59] LABS: Anion Gap 3 mmol/L (4-12); Blood Urea Nitrogen 18 mg/dL (7-17); Calcium 10.2 mg/dL (8.4-10.2); Carbon Dioxide 31 mmol/L (22-30); Chloride 101 mmol/L (98-107); Estimated Glomerular Filt Rate 44; Glucose 102 mg/dL (65-110); Potassium 5.2 mmol/L (3.4-5.0); Sodium 135 mmol/L (137-145)
== END 2025-06-19 12:39 | disposition home or self-care (01) ==
PROVIDERS: PCP Family Medicine; Visit Provider Family Medicine
DX: E78.5 Hyperlipidemia, unspecified (principal)
CPT/HCPCS: 36415; 80048